=== PATIENT | male | born 1930 | race Caucasian/White ===

== ENCOUNTER 2016-04-16 04:19 | Emergency (ER) | payer OTHER, MEDICARE ==
[2016-04-16 04:47] VITALS: TEMP 98.2; BMI 26.5
--- NOTE | 2016-04-16 05:57 | PDOC ---
History of Present Illness - History of Present Illness Initial Comments: 04/16/16 06:31 The patient is an 86 year old male with a PMHx of [place], CHF, HTN, HLD, bladder CA , on dialysis, kidney stones, presents to the ED with hematuria. He woke up in the middle of the night to use the bathroom and noticed blood in his urine. He reports dysuria. He denies flank pain, abdominal pain. He denies fever, chills, nausea, vomiting, diarrhea, constipation. PCP: Dr. Anil Frazier Urologist: Dr. Yared Allen <Aileen Calles - Last Filed: 04/16/16 06:31> <Linda Duvall - Last Filed: 04/16/16 07:13> <Hyacinth Osei - Last Filed: 04/16/16 12:56> - General Chief Complaint: Hematuria Stated Complaint: BLOOD IN URINE Time Seen by Provider: 04/16/16 05:57 Past History <Aileen Calles - Last Filed: 04/16/16 06:31> - Past Medical History Anemia: No Asthma: No Cancer: Yes (BLADDER, SKIN ON TOP OF HEAD) Cardiac Disorders: Yes ([place], BYPASS SX, x1 Stent) CVA: No COPD: No CHF: Yes Dementia: No Diabetes: No GI Disorders: No Disorders: Yes (BLADDER CA, L-ARM FISTULA/Dialysis, kidney stones) HTN: Yes Hypercholesterolemia: Yes Liver Disease: No Seizures: No Thyroid Disease: No - Surgical History Abdominal Surgery: No Appendectomy: No Cardiac Surgery: Yes (BYPASS) Cholecystectomy: Yes Lung Surgery: No Neurologic Surgery: No Orthopedic Surgery: No - Immunization History Immunization Up to Date: Yes - Psycho/Social/Smoking Cessation Hx Anxiety: No Suicidal Ideation: No Smoking History: Never smoked Have you smoked in the past 12 months: No If you are a former smoker, when did you quit?: 2001 Information on smoking cessation initiated: No Hx Alcohol Use: No Drug/Substance Use Hx: No Substance Use Type: None Hx Substance Use Treatment: No <Linda Duvall - Last Filed: 04/16/16 07:13> <Hyacinth Osei - Last Filed: 04/16/16 12:56> - Past Medical History Allergies/Adverse Reactions: Allergies Allergy/AdvReac Type Severity Reaction Status Date / Time Penicillins Allergy Rash Verified 04/16/16 04:46 shellfish derived Allergy Rash Verified 04/16/16 04:46 Sulfa (Sulfonamide Allergy Difficulty Verified 04/16/16 04:46 Antibiotics) Breathing Home Medications: Ambulatory Orders Atorvastatin Ca [Lipitor] 20 mg PO HS 07/10/13 Furosemide [Lasix -] 40 mg PO DAILY 07/10/13 Carvedilol [Coreg -] 12.5 mg PO BID tablet 08/01/15 Pantoprazole Sodium [Protonix] 40 mg PO DAILY #30 tablet. 08/01/15 Allopurinol [Zyloprim -] 100 mg PO DAILY 08/17/15 Aspirin [ASA -] 81 mg PO DAILY 04/16/16 Bisacodyl [Dulcolax] 1 tablet PO DAILY 04/16/16 Ciprofloxacin HCl [Cipro] 500 mg PO BID #6 tablet 04/16/16 Clopidogrel Bisulfate [Plavix -] 75 mg PO DAILY 04/16/16 Multivit-Min/FA/Lycopen/Lutein [Centrum Silver Tablet] 1 each PO DAILY 04/16/16 Review of Systems - Review of Systems Comments:: 04/16/16 06:31 GENERAL/CONSTITUTIONAL: No fever or chills. No weakness. HEAD, EYES, EARS, NOSE AND THROAT: No change in vision. No ear pain or discharge. No sore throat. CARDIOVASCULAR: No chest pain or shortness of breath. RESPIRATORY: No cough, wheezing, or hemoptysis. GASTROINTESTINAL: No nausea, vomiting, diarrhea or constipation. GENITOURINARY: + hematuria, dysuria. MUSCULOSKELETAL: No joint or muscle swelling or pain. No neck or back pain. SKIN: No rash NEUROLOGIC: No headache, vertigo, loss of consciousness, or change in strength/ sensation. ENDOCRINE: No increased thirst. No abnormal weight change. HEMATOLOGIC/LYMPHATIC: No anemia, easy bleeding, or history of blood clots. ALLERGIC/IMMUNOLOGIC: No hives or skin allergy. <Aileen Calles - Last Filed: 04/16/16 06:31> *Physical Exam - Vital Signs Last Vital Signs Temp Pulse Resp BP Pulse Ox 98.2 F 64 18 149/65 95 04/16/16 04:46 04/16/16 04:46 04/16/16 04:46 04/16/16 04:46 04/16/16 04:46 - Physical Exam Comments: 04/16/16 06:31 GENERAL: Awake, alert, and fully oriented, in no acute distress HEAD: No signs of trauma EYES: PERRLA, EOMI, sclera anicteric, conjunctiva clear ENT: Auricles normal inspection, hearing grossly normal, nares patent, oropharynx clear without exudates. Moist mucosa NECK: Normal ROM, supple, no lymphadenopathy, JVD, or masses LUNGS: Breath sounds equal, clear to auscultation bilaterally. No wheezes, and no crackles HEART: Regular rate and rhythm, normal S1 and S2, no murmurs, rubs or gallops ABDOMEN: No flank tenderness. Soft, nontender, normoactive bowel sounds. No guarding, no rebound. No masses EXTREMITIES: Normal range of motion, no edema. No clubbing or cyanosis. No cords, erythema, or tenderness NEUROLOGICAL: Cranial nerves II through XII grossly intact. Normal speech, normal gait SKIN: Warm, Dry, normal turgor, no rashes or lesions noted. <Aileen Calles - Last Filed: 04/16/16 06:31> - Vital Signs Last Vital Signs Temp Pulse Resp BP Pulse Ox 98.2 F 64 18 149/65 95 04/16/16 04:46 04/16/16 04:46 04/16/16 04:46 04/16/16 04:46 04/16/16 04:46 <Linda Duvall - Last Filed: 04/16/16 07:13> - Vital Signs Last Vital Signs Temp Pulse Resp BP Pulse Ox 98.2 F 64 18 149/65 95 04/16/16 04:46 04/16/16 04:46 04/16/16 04:46 04/16/16 04:46 04/16/16 04:46 <Hyacinth Osei - Last Filed: 04/16/16 12:56> ED Treatment Course - ADDITIONAL ORDERS Additional order review: Laboratory Results 04/16/16 06:40 Urine Color Red Urine Appearance Bloody Urine pH 6.5 D Ur Specific [place] 1.015 Urine Protein 3+ H Urine Glucose (UA) Trace H Urine Ketones 1+ H Urine Blood 3+ H Urine Nitrite Positive Urine Bilirubin 2+ H Urine Urobilinogen >=8.0 e.u./dl Ur Leukocyte Esterase 2+ H Urine RBC 3787 Urine WBC None <Hyacinth Osei - Last Filed: 04/16/16 12:56> Medical Decision Making - Medical Decision Making 04/16/16 07:13 Pt comes with hematuria. Spiral CT pending. Bladder sonogram pending. UA pending. Pt's PMD Karin is in the ER and he stopped patient's plavix and aspirin. Dr. Frazier and Dr. Sánchez () will follow patient on an outpatient basis. Pt will be signed out to the day ER doc who will follow CT and SONO and UA. <Linda Duvall - Last Filed: 04/16/16 07:13> - Medical Decision Making 04/16/16 12:50 Received sign out from Dr Duvall to f/u ua, catscan, and bladder scan. Pt ua Positive for nitrate and has jorge alberto and pt c/o some dysuria. Will dc home with cipro 500mg po bid x 3 days for uti. Catscan showed 24 cm cystic structure with in the rt lateral aspect of the abdomen,possible exophytic renal cortical cyst. Dr Moreno is aware of the above findings. Pt to f/u with urology in next 48 hrs, pt agrees with this dc plan Pt to retun to ed for fever, abdominal pain or as needed. Pt agrees with this dc plan <Hyacinth Osei - Last Filed: 04/16/16 12:56> *DC/Admit/Observation/Transfer - Attestations Scribe Attestion: 04/16/16 06:32 Documentation prepared by Aileen Calles, acting as medical technologist microbiology for Linda Duvall MD. <Aileen Calles - Last Filed: 04/16/16 06:31> <Linda Duvall - Last Filed: 04/16/16 07:13> - Discharge Dispostion Admit: No <Hyacinth Osei - Last Filed: 04/16/16 12:56> Diagnosis at time of Disposition: ESRD (end stage renal disease), UTI symptoms - Discharge Dispostion Disposition: HOME Condition at time of disposition: Stable - Prescriptions Prescriptions: Ciprofloxacin HCl [Cipro] 500 mg PO BID #6 tablet - Referrals Referrals: Anil Frazier MD [Primary Care Provider] - - Patient Instructions Additional Instructions: return to ed for fever, abdominal pain or as needed. Pt to f/u with urolohy in next 48-72 hrs
[2016-04-16 07:00] LABS: PH,URINE 6.5 (5.0-8.0); URINE BILIRUBIN 2+ (NEGATIVE); URINE GLUCOSE (UA) TRACE (NEGATIVE); URINE KETONE 1+ (NEGATIVE); URINE UROBILINOGEN >=8.0 E.U./dl E.U./dl (0.2-1.0)
[2016-04-16 07:15] LABS: URINE BLOOD 3+ (NEGATIVE); URINE LEUK ESTERASE 2+ (NEGATIVE); URINE NITRITE POSITIVE (NEGATIVE); URINE PROTEIN 3+ (NEGATIVE)
[2016-04-16 07:16] LABS: URINE APPEARANCE BLOODY; URINE COLOR RED
[2016-04-16 07:21] LABS: URINE RBC 3787 /hpf (0-3)
--- NOTE | 2016-04-16 07:24 | PN ---
Progress Note (short form) - Note Progress Note: Pt was seen in the ER, waiting forCT in radiology. 86 y.o M presented to ER because of hematuria last night. His PMH -previous CO, CABG, PCI/stent last August 2015-Dr. Danielle. He is taking Plavix and ASA and being followed by Dr Root. No CHF symptoms , no angina recently Bladder cancer treated by Dr Gant. HTN. HLD. ESRD on HD TIW. Today Vital Signs Period Temp Pulse Resp BP Sys/[place] Pulse Ox Last 24 Hr 98.2 F 64 18 149/65 95 Awake, alert in W/C. in attendance. Lunds clear Heart S1S2 regular EXT-no CCE Fistula-good thrill Imp Hematuria while on ASA/Plavix. Bladder CA. R/O UTI. ASHD, S/p CO, s/p PCI. HTN ESRD on HD Plan Case discussed with ER MD Advised to Pt temorarily D/C ASA/Plavix and to follow up with as otpt. Will follow as outpt and pt also will follow with his cardiology. Laboratory Results - last 24 hr 04/16/16 06:40 Urine Color Red Urine Appearance Bloody Urine pH 6.5 D Ur Specific [place] 1.015 Urine Protein 3+ H Urine Glucose (UA) Trace H Urine Ketones 1+ H Urine Blood 3+ H Urine Nitrite Positive Urine Bilirubin 2+ H Urine Urobilinogen >=8.0 e.u./dl Ur Leukocyte Esterase 2+ H
[2016-04-16 10:18] VITALS: BP 136/70; PULSE 80
== END 2016-04-16 10:20 | disposition home or self-care (01) ==
LOC: JER 04:19
DX: N39.0 Urinary tract infection, site not specified (principal); I13.11 Hypertensive heart and chronic kidney disease without heart failure, with stage 5 chronic kidney disease, or end stage renal disease; N18.6 End stage renal disease; N17.8 Other acute kidney failure; Z99.2 Dependence on renal dialysis; I25.2 Old myocardial infarction; Z87.891 Personal history of nicotine dependence; E78.00 Pure hypercholesterolemia, unspecified; Z85.51 Personal history of malignant neoplasm of bladder; Z95.1 Presence of aortocoronary bypass graft; Z95.5 Presence of coronary angioplasty implant and graft; Z79.01 Long term (current) use of anticoagulants
CPT/HCPCS: 74176; 76856-TC; 81003; 81015; 87086; 99283-25

== ENCOUNTER 2016-05-05 05:05 | Day surgery (SDC) | payer OTHER, MEDICARE ==
[2016-05-04 09:51] VITALS: BMI 28.3
[2016-05-05 06:56] LABS: INR 1.39 (0.82-1.09); PROTHROMBIN TIME (PATIENT) 15.4 SEC (9.98-11.88)
[2016-05-05 06:58] LABS: ACTIVATED PTT 36.9 SECONDS (26.9-34.4)
[2016-05-05] MEDS ORDERED: PROPOFOL 20 ML ONE (09:13)
[2016-05-05] MEDS ORDERED: VANCOMYCIN 1,000 MG VIAL (RESTRICTED TO ID ONLY) ONE (09:15)
[2016-05-05] MEDS ORDERED: VANCOMYCIN 500 MG VIAL (RESTRICTED TO ID ONLY) IVPB ONE (09:30)
[2016-05-05] MEDS ORDERED: GLYCOPYRROLATE 0.2 MG/1 ML VIAL ONE ×2 (09:48→09:59)
[2016-05-05] MEDS ORDERED: DEXAMETHASONE SOD PHOSPHATE 4 MG/1 ML VIAL ONE (09:53)
[2016-05-05] MEDS ORDERED: ePHEDrine SULFATE 50 MG/1 ML AMPULE ONE (09:55)
--- NOTE | 2016-05-05 10:21 | OP ---
Operative Note - Note: Operative Date: 05/05/16 Pre-Operative Diagnosis: gross hematuria/poss bladder tumor Operation: cysto/bilateral retrograde pyelogram, left ureteroscopy/stent placement Findings: no bladder tumor Post-Operative Diagnosis: Other (gross heme) Surgeon: Yared Allen Anesthesia: General Specimens Removed: clot Estimated Blood Loss (mls): 5 Drains & Tubes with Location: 7fr, 24cm stent Operative Report Dictated: Yes
[2016-05-05] MEDS ORDERED: oxyCODONE HCL 5 MG TABLET PO PRN (10:22)
[2016-05-05] MEDS ORDERED: ONDANSETRON 4 MG/2 ML VIAL IVPUSH PRN (10:34)
--- NOTE | 2016-05-05 11:46 | OP ---
DATE OF OPERATION: 05/05/2016 PREOPERATIVE DIAGNOSIS: Gross hematuria and possible bladder tumor. POSTOPERATIVE DIAGNOSIS: Gross hematuria. PROCEDURE: Cystoscopy, bilateral retrograde pyelogram, left ureteroscopy, and stent placement. SURGEON: Damian Hutchinosn MD INDICATIONS: Patient is an 86-year-old male with end-stage renal disease on hemodialysis with recent gross hematuria. He has had a history of TCC of the bladder, and when he had a cystoscopy in the office, there appeared to be, could not tell if it was blood clot or tumor right at the left ureteral orifice. So, he was taken to the OR for cystoscopy, evaluation of the left collecting system, and possible TURBT. DESCRIPTION OF PROCEDURE: The patient in the OR was placed supine on the OR table. With cardiac monitoring administered and general anesthesia established, he was prepped and draped in dorsal lithotomy position. The rigid cystoscope was introduced into the urethra without difficulty. Anterior urethra was normal. Prostatic urethra was 4 cm and visually occlusive. Bladder was visualized. There were multiple small clots in the bladder that were evacuated and sent to Pathology for analysis. These appeared to be organized clot that looked cystoscopically like they were stones, but once I drained them out, they just crumbled between my fingers, indicating likely clot. So, I sent that specimen for analysis at the lab. The clot or tumor that was seen at the left ureteral orifice in the office was no longer there indicating that this was probably clot that had passed. Since clot was coming from the ureteral orifice, I performed a retrograde pyelogram and ureteroscopy to make sure there was no tumor in the upper collecting system. Retrograde pyelogram was performed with the ureteral catheter inserted into the left distal ureter. There was no evidence of any filling defect. The guidewire was advanced into the left renal pelvis, and then a dual lumen catheter was advanced, and a 2nd guidewire was advanced. Flexible ureteroscope was advanced into the kidney. Entire kidney was inspected, upper, middle, and lower poles. There was evidence again of small organized clot, but no tumor. All were inspected. The entire uterus inspected, and no tumors were noted. Ureteroscope was then removed, and a 7-Afghan 24-cm double pigtail stent was then advanced in a monorail fashion. Fluoroscopy confirmed this stent to be in good position. At this point, attention was turned to the patients right side, and the right ureter was intubated with ureteral catheter, and contrast was injected for retrograde pyelogram. The right ureter deviated almost all the way to the left side and then back to the right side, where at to the kidney, and this was due to an existing, very large abdominal retroperitoneal cyst that was noted on CT scan, but there were no filling defects noted. Because the right collecting system did not show any evidence of clot or filling defect, a ureteroscopy was not performed. Again, bladder was re-inspected and no tumors were noted. Cystoscope was then removed. Patient was awoken from anesthesia and transferred to recovery room in stable condition. There were no complications. ESTIMATED BLOOD LOSS: Minimal. DAMIAN HUTCHINSON M.D. [id number]
--- NOTE | 2016-05-05 15:04 | CON.CARD ---
Cardiology Consult (text) - Consultation Consultation Note: CC: chf 86 yo with pmhx of CAD (inferior [place]) s/p 4 vessel CABG at [facility] (anatomy unknown ) and most recently NSTEMI 08/2015 s/p TRISHA to [place] RPL1 (grafts patent), ischemic MR, dCHF with pHTN, AR, HTN, HL, venous insufficiency/LE edema, hx of GIB (egd showed gastric ulcer), esrd on HD, diverticulosis, colon polyps, BPH, kidney stones, anxiety, gout, psoriasis who was admitted s/p cystoscopy. Recent recurrent mild anginal sx's in setting of decreased HD sessions --> resolved after increasing time of HD sessions back to previous. Recent cough after stopping lasix. Resumed 40 mg daily, and then one week ago increased to 40 mg bid with slow improvement in cough over the course of the week. (still mild residual cough) - mild increase in baseline minimal uop on bid lasix. - no change in exercise capacity during this time. Denies orthopnea, pnd, le edema, sob, recurrence of angina. + hematuria. Recently stopped ASA, plavix. s/p cystoscopy today for further evaluation --> ureteral stent placement (no tumor visualized) . - GA anesthesia, good O2 sats throughout procedure, 300 cc of IVF adminsistered Currently complaining of thirst, and sore throat. Has not made urine since procedure. Denies palps, dizziness, f/c/s, n/v/d, headache, visual disturbances, rashes, nasal congestion or transient neurologic symptoms. Cards: Dr. Root PMx. per hpi Past Surgical History: Yes: AV Fistula/Graft, CABG, Cataract Removal (left eye) , Cholecystectomy (open) Social Hx: former smoker, no etoh, or illicits Fam hx: Non-contributory Ros: per hpi Ambulatory Orders Atorvastatin Ca [Lipitor] 20 mg PO HS 07/10/13 Furosemide [Lasix -] 40 mg PO BID 07/10/13 Carvedilol [Coreg -] 12.5 mg PO BID tablet 08/01/15 Pantoprazole Sodium [Protonix] 40 mg PO DAILY #30 tablet. 08/01/15 Allopurinol [Zyloprim -] 100 mg PO DAILY 08/17/15 Bisacodyl [Dulcolax] 1 tablet PO PRN PRN 04/16/16 Multivit-Min/FA/Lycopen/Lutein [Centrum Silver Tablet] 1 each PO DAILY 04/16/16 Current Medications Fentanyl (Sublimaze Injection -) 25 mcg IVPUSH [id number] PRN PRN Reason: PAIN Stop: 05/08/16 10:35 Ondansetron HCl (Zofran Injection) 4 mg IVPUSH Q6H PRN PRN Reason: NAUSEA AND/OR VOMITING Stop: 05/05/16 16:35 Oxycodone HCl (Roxicodone -) 5 mg PO Q4H PRN PRN Reason: PAIN Vital Signs - 24 hr 05/05/16 05/05/16 05/05/16 07:23 07:25 10:16 Temperature 97.6 F 97.3 F L Pulse Rate 52 L 70 Respiratory 18 15 Rate Blood Pressure 144/50 156/47 O2 Sat by Pulse 98 96 Oximetry (%) 05/05/16 05/05/16 05/05/16 10:30 10:45 11:00 Temperature Pulse Rate 65 61 59 L Respiratory 16 15 13 Rate Blood Pressure 161/52 153/59 130/41 O2 Sat by Pulse 99 100 100 Oximetry (%) 05/05/16 05/05/16 05/05/16 11:15 11:30 11:45 Temperature 97.5 F L Pulse Rate 58 L 56 L 55 L Respiratory 15 17 15 Rate Blood Pressure 147/42 127/38 142/44 O2 Sat by Pulse 100 97 97 Oximetry (%) 05/05/16 05/05/16 12:05 13:51 Temperature 97.1 F L Pulse Rate 54 L 55 L Respiratory 18 18 Rate Blood Pressure 114/53 140/57 O2 Sat by Pulse 92 L Oximetry (%) Intake & Output 05/03/16 05/04/16 05/05/16 05/06/16 07:59 07:59 07:59 07:59 Intake Total 300 Output Total 0 Balance 300 Weight 160 lb NAD, calm JVD elevated, neck supple RRR nl s1, s2 2/6 murmur at LSB and apex bibasilar crackles and exp wheezes, nl effort + bs soft nt nd ext without e/c/c + dp/pt no jaundice, diaphoresis aaox3 CBC, BMP 05/05/16 06:29 echo 12/2015: mild lvh. nl size/fn EF 55-60%. Mild HK of inferolateral wall and basal inferoseptum, mod HK of inferior wall. Pseudonormalization. mild RV dilation, nl fn. mod lae. 1+ ar, mod MR (central), mild-mod tr, mod phtn. RVSP 51 (presuming RAP of 3) [facility] 08/23/2015: severe [place] 3vD; patent grafts x 4: RAI to LAD; radial artery Y -graft from RAI to D1 and OM1; radial artery to RCA; 70-80% RPL1--XIENCE; EDP 25, down to 20 with NTG; nl EF, no RWMA Stress Echo 03/07--dobutamine: possibly ischemic STs; +mid-septal akinesis and infero-apical HK c/w ischemia 86 yo with pmhx of CAD (inferior NM) s/p 4 vessel CABG at [facility] (anatomy unknown) and most recently NSTEMI 08/2015 s/p TRISHA to [place] RPL1 (grafts patent) , ischemic MR, dCHF with pHTN, AR, HTN, HL, venous insufficiency/LE edema, hx of GIB (egd showed gastric ulcer), esrd on HD, diverticulosis, colon polyps, BPH, kidney stones, anxiety, gout, psoriasis who was admitted s/p cystoscopy. Diastolic HF with mod phtn - appears volume up on exam. - Discussed with renal, will diurese via HD. Arrangements being made for HD tomorrow am. - close monitoring of O2 sat to prevent hypoxia from worsening pHTN. CAD (inferior NM) s/p 4 vessel CABG at [facility] (anatomy unknown) - Most recently NSTEMI 08/2015 s/p TRISHA to [place] R[place]1 (grafts patent). - s/p DAPT x 7 mo --> held 3 weeks ago for hematuria. - resume DAPT or at least ASA when safe per urology - atorvastatin, bb Mod ischemic MR. - no signs of valvular decompensation - diuresis as above. - management of bp HTN - reasonable bp control for age. Resume coreg 12.5 mg bid once HR > 60. (Has underlying conduction abnormalities/AV delay and LBBB) s/p cystoscopy under GA - edwardo-operative monitoring as mentioned above. - managment per urology.
--- NOTE | 2016-05-05 17:36 | CON.NEP ---
Consult Consult Specialty:: Nephrology Referred by:: Dr Mae Reason for Consultation:: ESRD - History of Present Illness Chief Complaint: Admitted post op History of Present Illness: 86 yo with CAD (inferior [place]) s/p 4 vessel CABG, and most recently NSTEMI 08/2015 [place]grafts patent), HFpEF with pHTN, AR, HTN, HLD, ESRD on HD on MWF, diverticulosis, colon polyps, BPH, kidney stones, anxiety, gout, psoriasis who was admitted s/p cystoscopy. Pt has been off the ASA and Plavix since he had gross hematuria several weeks ago so cystoscopy was done and negative for tumor was negative. Pt due to void now. Asked to see pt regarding his dialysis which would next be due tomorrow Pt is very comfortable and denies any c/o dyspnea, CP, N/V or palpitations He has been able to ambulate in his room without difficulty - History Source History Provided By: Patient - Past Medical History Cardio/Vascular: Yes: Aortic Insufficiency, CHF, HTN, [place], Mitral Insufficiency, Murmur, Pulmonary Hypertension Pulmonary: Yes: Other (Pulm HTN) Gastrointestinal: Yes: Diverticulosis, GI Bleed, Peptic Ulcer Disease, Other ( colon polyps) Renal/: Yes: Renal Failure, BPH, Cancer (Bladder), Renal Calculi (uric acid stones) Psych: Yes: Anxiety Rheumatology: Yes: Gout Dermatology: Yes: Psoriasis - Past Surgical History Past Surgical History: Yes: AV Fistula/Graft, CABG, Cataract Removal (left eye) , Cholecystectomy (open) - Alcohol/Substance Use Hx Alcohol Use: No - Smoking History Smoking history: Never smoked Have you smoked in the past 12 months: No If you are a former smoker, when did you quit?: 2001 - Social History Usual Living Arrangement: With Spouse History of Recent Travel: No Home Medications - Allergies Allergies/Adverse Reactions: Allergies Allergy/AdvReac Type Severity Reaction Status Date / Time Penicillins Allergy Rash Verified 05/05/16 07:12 shellfish derived Allergy Rash Verified 05/05/16 07:12 Sulfa (Sulfonamide Allergy Difficulty Verified 05/05/16 07:12 Antibiotics) Breathing - Home Medications Home Medications: Ambulatory Orders Atorvastatin Ca [Lipitor] 20 mg PO HS 07/10/13 Furosemide [Lasix -] 40 mg PO BID 07/10/13 Carvedilol [Coreg -] 12.5 mg PO BID tablet 08/01/15 Pantoprazole Sodium [Protonix] 40 mg PO DAILY #30 tablet. 08/01/15 Allopurinol [Zyloprim -] 100 mg PO DAILY 08/17/15 Aspirin [ASA -] 81 mg PO DAILY 04/16/16 Bisacodyl [Dulcolax] 1 tablet PO PRN PRN 04/16/16 Clopidogrel Bisulfate [Plavix -] 75 mg PO DAILY 04/16/16 Multivit-Min/FA/Lycopen/Lutein [Centrum Silver Tablet] 1 each PO DAILY 04/16/16 Family Disease History - Family Disease History Family Disease History: CA: Brother (lung), Other: Father (cva), Mother ( natural causes), Sister (parkinson's) Nephrology Consult - Height Height: 5 ft 3 in - Weight Weight: 160 lb - BMI Body Mass Index (BMI): 28.3 - Lab Results CBC,BMP: CBC, BMP 05/05/16 06:29 04/20/16-Hgb 10.5 Plt 120 WBC 5.5 Glucose 125 Na 139, Cr 2.9 K 3.3 - Imaging Chest X-ray: Other (04/20/16- Cardiomegaly) EKG: Other (04/20/16- NSR with first degree block LBBB) - Physical Examination Vital Signs: Vital Signs Temperature 97.1 F L 05/05/16 13:51 Pulse Rate 55 L 05/05/16 13:51 Respiratory Rate 18 05/05/16 13:51 Blood Pressure 140/57 05/05/16 13:51 O2 Sat by Pulse Oximetry (%) 92 L 05/05/16 12:30 Constitutional: Yes: No Distress, Calm Cardiovascular: Yes: JVD, Murmur, S1, S2 Respiratory: Yes: Rales, Other (Few crackles at the left posterior base) Gastrointestinal: Yes: Soft, Distention, Other (RUQ scar). No: Tenderness, Rebound Extremities: Yes: Other (LUE AVF with thrill) Edema: LLE: Trace, RLE: Trace Neurological: Yes: Alert, Oriented Assessment/Plan Impression S/P Cystoscopy for gross Hematuria in pt with h/o BPH ESRD HTN CABG with stent HFpEF Valvular heart disease Anemia Plan Renal diet with salt and fluid restriction No BP or IV in the LUE Will arrange for HD to be done in am since pt is clinically stable and not in decompensated CHF at this time. Pt also prefers to wait for his usual day Restart the ASA and Plavix when OK with Urology Monitor for urinary retention post operatively Discussed with Urology and Cardiology Thank You Will Follow Dr Webb
[2016-05-05] MEDS: CARVEDILOL 12.5 MG TABLET (FP) PO SCH (21:36)
[2016-05-05] MEDS ORDERED: ATORVASTATIN CA 20 MG TABLET (FP) PO SCH (22:00)
[2016-05-06 07:33] LABS: CALCIUM 7.9 mg/dL (8.5-10.1); CREATININE 5.7 mg/dL (0.7-1.3)
[2016-05-06 07:34] LABS: BASOPHIL 0.4 % (0-2.0); EOSINOPHIL 0.3 % (0-4.5); MCHC 33.4 g/dl (32.0-35.9); MEAN CELL VOLUME 101.9 fl (80-96); MEAN PLT VOLUME 9.4 fl (7.5-11.1); NEUTROPHILS 81.4 % (42.8-82.8); PLATELET COUNT 111 K/MM3 (134-434); RDW 17.5 % (11.9-15.9); WHITE BLOOD COUNT 6.4 K/mm3 (4.0-10.0)
--- NOTE | 2016-05-06 10:14 | PN ---
Progress Note, Physician History of Present Illness: Pt now on HD without any complaints Pre K 3.8 so Ca 2.5 K3 bath being used for the last 1/2 hour Pre wt 0.1 Kgs above EDW Aiming to remove 1 kgs Pt had some urinary retention so was catheterized X2 overnight - 400 cc then 150 cc drained out - Current Medication List Current Medications: Active Medications Atorvastatin Calcium (Lipitor -) 20 mg PO HS [facility] Last Admin: 05/05/16 21:36 Dose: 20 mg Carvedilol (Coreg -) 12.5 mg PO BID [facility] Last Admin: 05/05/16 21:36 Dose: 12.5 mg Fentanyl (Sublimaze Injection -) 25 mcg IVPUSH [id number] PRN PRN Reason: PAIN Stop: 05/08/16 10:35 Oxycodone HCl (Roxicodone -) 5 mg PO Q4H PRN PRN Reason: PAIN - Objective Vital Signs: Vital Signs Temperature 98.2 F 05/06/16 06:51 Pulse Rate 49 L 05/06/16 09:00 Respiratory Rate 16 05/06/16 09:00 Blood Pressure 127/50 05/06/16 09:00 O2 Sat by Pulse Oximetry (%) 94 L 05/06/16 00:38 Constitutional: Yes: No Distress Cardiovascular: Yes: Murmur, S1, S2 Respiratory: Yes: CTA Bilaterally, Other (Clear towards the end of HD) Gastrointestinal: Yes: Soft, Distention. No: Tenderness, Rebound Edema: LLE: Trace, RLE: Trace Labs: CBC, BMP 05/06/16 05:35 05/06/16 05:35 INR, PTT INR 1.39 (0.82-1.09) H 05/05/16 06:29 Assessment/Plan Impression S/P Cystoscopy for gross Hematuria in pt with h/o BPH and post op retention ESRD HTN CABG with stent HFpEF Valvular heart disease Anemia Plan Restart the ASA and Plavix when OK with Urology Continue to monitor for urinary retention post operatively New EDW to be determined Dr Webb
[2016-05-06] MEDS: CARVEDILOL 12.5 MG TABLET (FP) PO SCH (10:27)
--- NOTE | 2016-05-06 11:20 | PATH ---
Surgical Pathology Report Patient Name: REJI MARMOLEJO [facility]. Rec. #: [id number] /Age/Gender: 1930 (Age: 86) / M Account: [id number] Location: [address] [place] [address]/[facility] Taken: 05/05/2016 Received: 05/05/2016 Reported: 05/06/2016 Physicians: Yared Allen M.D. Specimen(s) Received FOREIGN BODY IN BLADDER, STONE VS BLOOD CLOTS Clinical History Hematuria Final Diagnosis BLOOD CLOT, BLADDER, EVACUATION: CLOTTED BLOOD. Electronically Signed Stanley Hardy M.D. Gross Description Received in formalin labelled "foreign body in bladder, stone versus blood clot" is approximately 0.5 cm greatest dimension aggregate of small fragments of clotted blood. No definite calculi are identified. Totally submitted in one cassette. [facility]/05/05/2016 [facility]/05/05/2016
--- NOTE | 2016-05-06 11:54 | PN ---
Progress Note (short form) - Note Progress Note: POD #1 - s/p cystoscopy/stent placement under general anesthesia. Pt. doing well , sitting up comfortably at side of bed. Pt. c/o some sore throat, taking lozenges. Discussed with pt. that sore throat my be related to the laryngeal mask airway used during the procedure. Reassured pt. that sore throat should resolve over the next few days. Advised to follow up with PMD if needed. Continue current care.
[2016-05-06 13:45] VITALS: BP 115/70; PULSE 57; TEMP 99.3
--- NOTE | 2016-05-06 16:00 | PN ---
Progress Note, Physician Chief Complaint: 86 y.o patient well known from the office. Underwent cystoscopy, stent placement 05/05/16 under [place]. Today scheduled HD done at [facility] for ESRD. Patient is comfortable in the room , present. Pt is asking about discharge. History of Present Illness: IWMI. CABG x4 at [facility]. Last NSTEMI 08/2015 with TRISHA placement. CHFpEF. HTN. pulm HTN. ischemic AR, AR, HLD, Gout. LE venous insufficiency. LE edema. PUD, gastric ulcer. Bladder cancer. Kidney lesion, kidney stones. BPH. Diverticulosis., colon polyps. Psoriasis. - Current Medication List Current Medications: Active Medications Atorvastatin Calcium (Lipitor -) 20 mg PO HS [facility] Last Admin: 05/05/16 21:36 Dose: 20 mg Carvedilol (Coreg -) 12.5 mg PO BID [facility] Last Admin: 05/06/16 10:27 Dose: 12.5 mg Fentanyl (Sublimaze Injection -) 25 mcg IVPUSH [id number] PRN PRN Reason: PAIN Stop: 05/08/16 10:35 Oxycodone HCl (Roxicodone -) 5 mg PO Q4H PRN PRN Reason: PAIN - Objective Vital Signs: Vital Signs Temperature 99.3 F 05/06/16 13:43 Pulse Rate 57 L 05/06/16 13:43 Respiratory Rate 18 05/06/16 13:43 Blood Pressure 115/70 05/06/16 13:43 O2 Sat by Pulse Oximetry (%) 93 L 05/06/16 12:00 Constitutional: Yes: No Distress, Anxious. No: Cachectic, Obese Eyes: Yes: Conjunctiva Clear, EOM Intact HENT: Yes: Atraumatic, Normocephalic. No: Drooling, Epistaxis, Hoarseness, Nasal Congestion Neck: Yes: Supple, Trachea Midline. No: Decreased ROM, Lymphadenopathy, Rigid, Tenderness, Thyromegaly Cardiovascular: Yes: Regular Rate and Rhythm, Murmur, S1, S2. No: Bradycardia, Tachycardia, JVD, Rub Respiratory: Yes: Regular, Rales (Few B/B rales). No: On Nasal O2 Gastrointestinal: Yes: Normal Bowel Sounds, Soft, Abdomen, Obese. No: Palpable Mass, Tenderness ...Rectal Exam: Yes: Deferred Genitourinary: No: Anuria, Bladder Distention, CVA Tenderness - Left, CVA Tenderness - Right, [place] Present Musculoskeletal: Yes: WNL Extremities: Yes: Other (left UE scar post radial artery harvesting for CABG). No: Amputation, Calf Tenderness, Cold, Cyanosis, Erythema Edema: No Peripheral Pulses WNL: No Integumentary: Yes: WNL Neurological: Yes: WNL ...Motor Strength: WNL Psychiatric: Yes: WNL, Alert, Oriented. No: Agitated, Suicidal Ideation Labs: CBC, BMP 05/06/16 05:35 05/06/16 05:35 INR, PTT INR 1.39 (0.82-1.09) H 05/05/16 06:29 Laboratory Results - last 24 hr 05/06/16 05/06/16 05:35 05:35 WBC 6.4 RBC 3.16 L Hgb 10.8 L Hct 32.2 L MCV 101.9 H MCHC 33.4 RDW 17.5 H Plt Count 111 L MPV 9.4 Neutrophils % 81.4 Lymphocytes % 9.6 Monocytes % 8.3 Eosinophils % 0.3 D Basophils % 0.4 Sodium 136 Potassium 3.8 Chloride 99 Carbon Dioxide 23 D Anion Gap 14 BUN 54 H D Creatinine 5.7 H D Random Glucose 127 H Calcium 7.9 L - ....Imaging Chest X-ray: Report Reviewed EKG: Report Reviewed, Image Reviewed (LBBB, SR) Problem List - Problems (1) CAD (coronary artery disease) Assessment/Plan: Patient can restart ASA tomorrow as discussed with .. Further recommendations after office f/u Continue meds and re-start Lasix . Follow up re urinary retention. Code(s): I25.10 - ATHSCL HEART DISEASE OF [place] CORONARY ARTERY W/O ANG PCTRS Qualifiers: Coronary Disease-Associated Artery/Lesion type: bypass graft Associated angina: with unstable angina (2) ESRD (end stage renal disease) Assessment/Plan: HD done today. Continue HD TIW. Code(s): N18.6 - END STAGE RENAL DISEASE (3) UTI symptoms Assessment/Plan: Spoke to Dr Jason today. Pt can be D/C home F/u with for stent removal. Code(s): R39.9 - UNSP SYMPTOMS AND SIGNS INVOLVING THE GENITOURINARY SYSTEM (4) Diastolic CHF Assessment/Plan: Re-start meds as pre-op Carvedilol, Furosemide. Would not replete K now-expected to go up with ESRD over the weekend cardiology and PMD F/u. Code(s): I50.30 - UNSPECIFIED DIASTOLIC (CONGESTIVE) HEART FAILURE Qualifiers : Congestive heart failure chronicity: chronic Qualified Code(s): I50.32 - Chronic diastolic (congestive) heart failure
--- NOTE | 2016-05-06 16:11 | PN ---
Progress Note (short form) - Note Progress Note: S/P ureteral stent. voiding this afternoon, still bloody
== END 2016-05-06 16:46 | disposition home or self-care (01) ==
LOC: JASUSAT 05:05 → JASU-SURG 05:05 → J5S 12:24 → JASUSAT 05-06 16:46
PROVIDERS: ATTEND Urology
PROC: 0WHR8YZ Insertion of Other Device into Genitourinary Tract, Via Natural or Artificial Opening Endoscopic (ICD-10-PCS; 2016-05-05)
PROC: 0T7D8DZ Dilation of Urethra with Intraluminal Device, Via Natural or Artificial Opening Endoscopic (ICD-10-PCS; principal; 2016-05-05 08:30)
PROC: BT14YZZ Fluoroscopy of Kidneys, Ureters and Bladder using Other Contrast (ICD-10-PCS; 2016-05-05 08:30)
DX: E31.0 Autoimmune polyglandular failure (principal); C67.8 Malignant neoplasm of overlapping sites of bladder; I25.10 Atherosclerotic heart disease of native coronary artery without angina pectoris; I25.2 Old myocardial infarction; I50.9 Heart failure, unspecified; Z95.1 Presence of aortocoronary bypass graft; Z79.01 Long term (current) use of anticoagulants; E78.5 Hyperlipidemia, unspecified; M19.90 Unspecified osteoarthritis, unspecified site; M10.9 Gout, unspecified; I27.2 Other secondary pulmonary hypertension; N40.0 Benign prostatic hyperplasia without lower urinary tract symptoms; L40.9 Psoriasis, unspecified; Z86.010 Personal history of colon polyps; Z87.442 Personal history of urinary calculi; I12.0 Hypertensive chronic kidney disease with stage 5 chronic kidney disease or end stage renal disease; N18.6 End stage renal disease; Z99.2 Dependence on renal dialysis
CPT/HCPCS: 36415; 71010-TC; 76000-TC; 80048; 84132; 85025; 85610; 85730; 87340; 88304-TC; 94760

== ENCOUNTER 2016-09-07 18:45 | Inpatient (IN) | payer OTHER, MEDICARE ==
--- NOTE | 2016-09-07 19:04 | PDOC ---
History of Present Illness <Andrade Alvarez - Last Filed: 09/07/16 21:11> - History of Present Illness Initial Comments: 09/07/16 19:42 Patient is an 86 year old male with significant medical hx of [place], CHF, pulmonary HTN, HLD, renal failure, bladder CA, renal failure on dialysis, kidney stones, psoriasis, who is presenting to the ED with four days of fever and two weeks of non-productive cough. Patient reports fever as high as 102 four days ago; he took it again today which measured 101.3. The patient also complains of associated fatigue. Denies any chest pain, shortness of breath, headache, nausea, vomiting, or diarrhea. Surgical Hx: AV Fistula/Graft, CABG, Cataract Removal (left eye), Cholecystectomy Allergies: penicillins, shellfish, sulfa PCP: Anil aPtel MD Urologist: Yared Pereyra MD Asbestos Abatement Technician: Jalen Root MD <Sury Diaz - Last Filed: 09/07/16 21:21> - General Chief Complaint: SIRS, Suspected/Possible Stated Complaint: SENT BY PCP Time Seen by Provider: 09/07/16 19:01 Past History - Past Medical History Anemia: No Asthma: No Cancer: Yes (BLADDER, SKIN ON TOP OF HEAD) Cardiac Disorders: Yes ([place], BYPASS SX, x1 Stent) CVA: No COPD: No CHF: Yes Dementia: No Diabetes: No Dialysis: Yes (M-W-F) GI Disorders: No Disorders: Yes (BLADDER CA, L-ARM FISTULA/Dialysis, kidney stones) HTN: Yes Hypercholesterolemia: Yes Liver Disease: No Seizures: No Thyroid Disease: No - Surgical History Abdominal Surgery: No Appendectomy: No Cardiac Surgery: Yes (BYPASS) Cholecystectomy: Yes Lung Surgery: No Neurologic Surgery: No Orthopedic Surgery: No - Immunization History Immunization Up to Date: Yes - Psycho/Social/Smoking Cessation Hx Anxiety: No Suicidal Ideation: No Smoking History: Never smoked Have you smoked in the past 12 months: No If you are a former smoker, when did you quit?: 2001 Hx Alcohol Use: No Drug/Substance Use Hx: No Substance Use Type: None Hx Substance Use Treatment: No <Andrade Alvarez - Last Filed: 09/07/16 21:11> <Sury Diaz - Last Filed: 09/07/16 21:21> - Past Medical History Allergies/Adverse Reactions: Allergies Allergy/AdvReac Type Severity Reaction Status Date / Time Penicillins Allergy Rash Verified 09/07/16 18:51 shellfish derived Allergy Rash Verified 09/07/16 18:51 Sulfa (Sulfonamide Allergy Difficulty Verified 09/07/16 18:51 Antibiotics) Breathing Home Medications: Ambulatory Orders Atorvastatin Ca [Lipitor] 20 mg PO HS 07/10/13 Furosemide [Lasix -] 40 mg PO BID 07/10/13 Carvedilol [Coreg -] 12.5 mg PO BID tablet 08/01/15 Pantoprazole Sodium [Protonix] 40 mg PO DAILY #30 tablet. 08/01/15 Allopurinol [Zyloprim -] 100 mg PO DAILY 08/17/15 Aspirin [ASA -] 81 mg PO DAILY 04/16/16 Bisacodyl [Dulcolax] 1 tablet PO PRN PRN 04/16/16 Clopidogrel Bisulfate [Plavix -] 75 mg PO DAILY 04/16/16 Multivit-Min/FA/Lycopen/Lutein [Centrum Silver Tablet] 1 each PO DAILY 04/16/16 Review of Systems - Review of Systems Comments:: 09/07/16 19:43 CONSTITUTIONAL: Fever, fatigue. No chills EYES: No visual changes ENT: No ear pain, no sore throat CARDIOVASCULAR: No chest pain, no palpitations RESPIRATORY: Cough. No SOB GI: No abdominal pain, no nausea, no vomiting, no constipation, no diarrhea GENITOURINARY: No dysuria, no frequency, no hematuria MUSKULOSKELETAL: No backpain, no joint pain, no myalgias SKIN: No rash NEURO: No headache <Sury Diaz - Last Filed: 09/07/16 21:21> *Physical Exam - Vital Signs Last Vital Signs Temp Pulse Resp BP Pulse Ox 98.0 F 63 20 104/32 94 L 09/07/16 18:48 09/07/16 18:48 09/07/16 18:48 09/07/16 18:48 09/07/16 18:48 <Andrade Alvarez - Last Filed: 09/07/16 21:11> - Vital Signs Last Vital Signs Temp Pulse Resp BP Pulse Ox 98.0 F 63 20 104/32 94 L 09/07/16 18:48 09/07/16 18:48 09/07/16 18:48 09/07/16 18:48 09/07/16 18:48 - Physical Exam Comments: 09/07/16 19:45 CONSTITUTIONAL: Alert, awake; in no apparent distress HEAD: Normocephalic; atraumatic EYES: PERRL; EOM intact ENMT: External appears normal; normal oropharynx NECK: Supple; non-tender; no cervical lymphadenopathy; no JVD CARD: Irregular; Normal S1, S2; 2/6 systolic murmur; No rubs, or gallops RESP: Normal chest excursion with respiration; breath sounds clear and equal bilaterally; no wheezes, rhonchi, or rales ABD: Soft, distended; non-tender; no palpable organomegaly, no palpable hernias EXT: +1 Pitting edema lower extremities bilaterally; AV fistula left upper extremity with palpable thrill; normal ROM in all four extremities; non-tender to palpation; distal pulses intact SKIN: Warm, dry, no rash, well healed midline sternotomy scar NEURO: No focal neurological deficiencies. <Sury Diaz - Last Filed: 09/07/16 21:21> Heart Score/ECG Review #1 09/07/16 21:21 Sinus bradycardia at 57 bpm with 1st degree AV block with occasional premature ventricular complexes Left axis deviation Left bundle branch block Abnormal ECG <Sury Diaz - Last Filed: 09/07/16 21:21> ED Treatment Course - LABORATORY CBC & Chemistry Diagram: 09/07/16 19:00 09/07/16 19:00 <Andrade Alvarez - Last Filed: 09/07/16 21:11> - LABORATORY CBC & Chemistry Diagram: 09/07/16 19:00 09/07/16 19:00 <Sury Diaz - Last Filed: 09/07/16 21:21> Medical Decision Making - Medical Decision Making 09/07/16 21:12 Patient is well-appearing 86-year-old male with multiple morbidities, with end- stage renal disease on hemodialysis (Monday, Monday, Monday), presents to the ER with recurrent intermittent fevers (MAXIMUM TEMPERATURE 102), for the past 3-4 days. Patient also complaining of persistent, nonproductive cough. In the ER, patient is awake and alert, afebrile, nontoxic appearing. Lung evaluation reveals coarse rhonchi at the bases bilaterally likely chronic in nature; abdominal exam reveals no focal tenderness, although it is mildly distended and tympanitic; lower extremity evaluation reveals a small plaque- like lesion above the left knee and +1 pitting edema bilaterally but no evidence of soft tissue infection. Chest x-ray reveals cardiomegaly, sternotomy wires and thickening of fissure on the right but no evidence of infiltrate. CBC reveals no evidence of leukocytosis. CMP reveals no significant electrolyte abnormalities. I suspect bacteremia. We'll administer vancomycin at 15 mg/kg. We 'll also administer 100 mg of gentamicin. Will admit. We'll consult renal. <Andrade Alvarez - Last Filed: 09/07/16 21:11> *DC/Admit/Observation/Transfer - Discharge Dispostion Admit: Yes - Attestations Physician Attestion: 09/07/16 21:12 The documentation was prepared by the scribe under my direct supervision. I have reviewed the documentation which correctly represents the findings, medical decision-making and critical action taken by me. <Andrade Alvarez - Last Filed: 09/07/16 21:11> - Attestations Scribe Attestion: 09/07/16 19:46 Documentation prepared by Sury Diaz, acting as medical assistant internal medicine for Andrade Alvarez MD. <Sury Diaz - Last Filed: 09/07/16 21:21> Diagnosis at time of Disposition: Bacteremia - Referrals Referrals: Anil Frazier MD [Primary Care Provider] -
[2016-09-07] MEDS ORDERED: VANCOMYCIN 1,250 MG in DEXTROSE 5%-WATER - 250 ML IVPB ONE (19:42)
[2016-09-07 20:03] LABS: VENOUS PH 7.29 (7.32-7.42)
[2016-09-07 20:21] LABS: MCH 32.8 pg (25.7-33.7); MCHC 32.7 g/dl (32.0-35.9); MEAN CELL VOLUME 100.5 fl (80-96); RDW 18.1 % (11.9-15.9); WHITE BLOOD COUNT 4.1 K/mm3 (4.0-10.0)
[2016-09-07 20:32] LABS: INR 1.66 (0.82-1.09); PROTHROMBIN TIME (PATIENT) 18.4 SEC (9.98-11.88)
[2016-09-07] MEDS: SODIUM CHLORIDE 250 ML IV STA ×2 (20:33→21:25)
[2016-09-07 20:35] LABS: ACTIVATED PTT 41.1 SECONDS (26.9-34.4)
[2016-09-07 20:44] LABS: ALBUMIN 2.3 g/dl (3.4-5.0); ANION GAP 11 (8-16); BILIRUBIN,TOTAL 0.6 mg/dL (0.2-1.0); CALCIUM 7.6 mg/dL (8.5-10.1); CO2 24 mmol/L (21-32); CREATININE 6.1 mg/dL (0.7-1.3); GLUCOSE,RANDOM 130 mg/dL (74-106); SGOT/AST 20 U/L (15-37); SGPT/ALT 15 U/L (12-78); TOT PROT 6.6 g/dl (6.4-8.2)
[2016-09-07] MEDS ORDERED: GENTAMICIN INJECTION 100 MG in DEXTROSE 5%-WATER - 250 ML IVPB ONE (20:44)
[2016-09-07 20:46] LABS: ALK PHOS 105 U/L (45-117); TROPONIN I 0.12 ng/ml (0.00-0.05)
[2016-09-07 21:13] LABS: MEAN PLT VOLUME 11.3 fl (7.5-11.1); PLATELET COMMENT2 NO CLUMPING NOTED; PLATELET COUNT 60 K/MM3 (134-434); PLATELET ESTIMATE MOD DECREASED (NORMAL)
[2016-09-07 21:14] LABS: PLATELET COMMENT3 FEW LARGE PLTS
[2016-09-07] MEDS ORDERED: BISACODYL 5 MG TABLET.DR (FP) PO PRN (21:14)
[2016-09-07] MEDS ORDERED: ACETAMINOPHEN 325 MG TABLET (FP) PO PRN (21:18)
[2016-09-07] MEDS: CARVEDILOL 12.5 MG TABLET (FP) PO SCH (23:42)
[2016-09-07] MEDS: ATORVASTATIN CA 20 MG TABLET (FP) PO SCH (23:42)
[2016-09-07] MEDS: GENTAMICIN INJECTION 100 MG in DEXTROSE 5%-WATER - 250 ML IVPB SCH (23:43)
[2016-09-08 01:38] VITALS: BMI 28.8
[2016-09-08] MEDS: FUROSEMIDE 40 MG TABLET (FP) PO SCH ×2 (06:20→14:07)
--- NOTE | 2016-09-08 08:14 | HP ---
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 Presented to ER and was admitted for further management. History of Present Illness: History of PUD and GI bleed, 2016 hospitalized.. ESRD with AVF left arm M-W-F Gout. ASHD. CABG. s/p [place]. Stable Angina. CHF-diastolic. Elevated PAP. Psoriasis. HTN. History Source: Patient, Medical Record - Past Medical History Cardiovascular: Yes: Aortic Insufficiency, CHF, HTN, [place], Mitral Insufficiency, Murmur, Pulmonary Hypertension Pulmonary: Yes: Other (Pulm HTN) Gastrointestinal: Yes: Diverticulosis, GI Bleed, Peptic Ulcer Disease, Other ( colon polyps) Renal/: Yes: Renal Failure, BPH, Cancer (Bladder), Renal Calculi (uric acid stones) Heme/Onc: Yes: Anemia Psych: Yes: Anxiety Rheumatology: Yes: Gout Dermatology: Yes: Psoriasis - Past Surgical History Past Surgical History: Yes: AV Fistula/Graft, CABG, Cataract Removal (left eye) , Cholecystectomy (open) - Smoking History Smoking history: Never smoked Have you smoked in the past 12 months: No If you are a former smoker, when did you quit?: 2001 - Alcohol/Substance Use Hx Alcohol Use: No - Social History History of Recent Travel: No Home Medications - Allergies Allergies/Adverse Reactions: Allergies Allergy/AdvReac Type Severity Reaction Status Date / Time Penicillins Allergy Rash Verified 09/07/16 18:51 shellfish derived Allergy Rash Verified 09/07/16 18:51 Sulfa (Sulfonamide Allergy Difficulty Verified 09/07/16 18:51 Antibiotics) Breathing - Home Medications Home Medications: Ambulatory Orders Atorvastatin Ca [Lipitor] 20 mg PO HS 07/10/13 Furosemide [Lasix -] 40 mg PO BID 07/10/13 Carvedilol [Coreg -] 12.5 mg PO BID tablet 08/01/15 Pantoprazole Sodium [Protonix] 40 mg PO DAILY #30 tablet. 08/01/15 Allopurinol [Zyloprim -] 100 mg PO DAILY 08/17/15 Aspirin [ASA -] 81 mg PO DAILY 04/16/16 Bisacodyl [Dulcolax] 1 tablet PO PRN PRN 04/16/16 Multivit-Min/FA/Lycopen/Lutein [Centrum Silver Tablet] 1 each PO DAILY 04/16/16 Family Disease History - Family Disease History Family Disease History: [place]: Brother (lung), Other: Father (cva), Mother ( natural causes), Sister (parkinson's) Review of Systems - Review of Systems Constitutional: reports: Diaphoresis, Loss of Appetite, Malaise, Weakness Eyes: denies: Blurred Vision, Double Vision, Eye Pain, Photophobia, Recent Change in Vision HENT: denies: Difficult Swallowing, Throat Pain Neck: denies: Decreased ROM, Lumps, Pain on Movement Cardiovascular: denies: Chest Pain, Edema, Palpitations, Shortness of Breath Respiratory: reports: Cough. denies: Hemoptysis, PND, Wheezing Gastrointestinal: reports: Constipation. denies: Abdominal Pain, Bloating, Diarrhea, Rectal Bleeding, Vomiting, Vomiting Blood Genitourinary: denies: Burning, Discharge Breasts: reports: No Symptoms Reported Musculoskeletal: denies: Decreased ROM, Joint Pain, Muscle Pain Integumentary: reports: Pruritis Neurological: denies: Change in LOC, Change in Speech, Confusion, Incoordination , Pre-Existing Deficit, Seizure Endocrine: denies: Increased Hunger, Intolerance to Cold, Intolerance to Heat, Unexplained Weight Loss Hematology/Lymphatic: denies: Easily Bruised, Excessive Bleeding Psychiatric: denies: Hallucinations, Paranoia, Suicidal Physical Examination Vital Signs: Vital Signs Temperature 98.9 F 09/08/16 06:00 Pulse Rate 58 L 09/08/16 06:00 Respiratory Rate 20 09/08/16 06:00 Blood Pressure 94/33 09/08/16 06:00 O2 Sat by Pulse Oximetry (%) 98 09/08/16 01:15 Constitutional: Yes: No Distress, Calm. No: Cachectic, Diaphoresis Eyes: Yes: Conjunctiva Clear, EOM Intact. No: Diplopia HENT: Yes: Atraumatic, Normocephalic. No: Drooling Neck: Yes: Supple, Trachea Midline. No: Decreased ROM, Lymphadenopathy, Tenderness, Thyromegaly Cardiovascular: Yes: Pulse Irregular (VPC) Respiratory: Yes: Rales (B/B). No: CTA Bilaterally Gastrointestinal: Yes: Soft, Abdomen, Obese. No: Pulsatile Mass, Rectal Bleeding, Tenderness, Tenderness, Rebound, Vomiting ...Rectal Exam: No: Deferred Renal/: No: Anuria, Bladder Distention, CVA Tenderness - Left, CVA Tenderness - Right Breast(s): Yes: WNL Musculoskeletal: Yes: Back Pain Extremities: No: Calf Tenderness, Cold, Cyanosis Edema: Yes Edema: LLE: Trace, RLE: Trace Integumentary: Yes: Rash Neurological: Yes: Alert, Oriented, Other ([place]). No: Confusion, Facial Droop, Lethargy, Tremors, Unresponsive ...Motor Strength: WNL Psychiatric: Yes: Alert, Oriented. No: Agitated, Suicidal Ideation Labs: Laboratory Results - last 24 hr 09/07/16 09/07/16 09/07/16 19:00 19:00 19:00 WBC 4.1 D RBC 3.27 L Hgb 10.8 L Hct 32.9 L MCV 100.5 H MCH 32.8 MCHC 32.7 RDW 18.1 H Plt Count 60 L D MPV 11.3 H D Neutrophils % 56.0 D Lymphocytes % 13.0 D Monocytes % 25.0 H D Eosinophils % 1.0 D Band Neutrophils 2.0 Differential Comment Manual diff done Reactive Lymphocytes 3 Platelet Estimate Decreased Platelet Comment No clumping noted Macrocytosis 1+ Morphology Comment Slide scanned ESR INR 1.66 H PTT (Actin FS) 41.1 H VBG pH POC VBG pCO2 POC VBG pO2 Mixed VBG HCO3 Sodium 137 Potassium 3.9 Chloride 102 Carbon Dioxide 24 Anion Gap 11 BUN 57 H Creatinine 6.1 H Creat Clearance w eGFR 8.83 Random Glucose 130 H Lactic Acid Calcium 7.6 L Total Bilirubin 0.6 AST 20 ALT 15 Alkaline Phosphatase 105 Creatine Kinase 11 L Troponin I 0.12 H D Total Protein 6.6 Albumin 2.3 L D Blood Type Antibody Screen 09/07/16 09/07/16 09/07/16 19:00 19:00 19:20 WBC RBC Hgb Hct MCV MCH MCHC RDW Plt Count MPV Neutrophils % Lymphocytes % Monocytes % Eosinophils % Band Neutrophils Differential Comment Reactive Lymphocytes Platelet Estimate Platelet Comment Macrocytosis Morphology Comment ESR 70 H INR PTT (Actin FS) VBG pH POC VBG pCO2 POC VBG pO2 Mixed VBG HCO3 Sodium Potassium Chloride Carbon Dioxide Anion Gap BUN Creatinine Creat Clearance w eGFR Random Glucose Lactic Acid 1.0 Calcium Total Bilirubin AST ALT Alkaline Phosphatase Creatine Kinase Troponin I Total Protein Albumin Blood Type A POSITIVE Antibody Screen Negative 09/07/16 19:50 WBC RBC Hgb Hct MCV MCH MCHC RDW Plt Count MPV Neutrophils % Lymphocytes % Monocytes % Eosinophils % Band Neutrophils Differential Comment Reactive Lymphocytes Platelet Estimate Platelet Comment Macrocytosis Morphology Comment ESR INR PTT (Actin FS) VBG pH 7.29 L POC VBG pCO2 43.0 POC VBG pO2 66.3 H Mixed VBG HCO3 20.0 Sodium Potassium Chloride Carbon Dioxide Anion Gap BUN Creatinine Creat Clearance w eGFR Random Glucose Lactic Acid Calcium Total Bilirubin AST ALT Alkaline Phosphatase Creatine Kinase Troponin I Total Protein Albumin Blood Type Antibody Screen Imaging - Results Chest X-ray: Report Reviewed EKG: Image Reviewed Problem List - Problems (1) CAD (coronary artery disease) Assessment/Plan: Elevated Troponin I -ESRD on HD, Cardiology f/u. Code(s): I25.10 - ATHSCL HEART DISEASE OF [place] CORONARY ARTERY W/O ANG PCTRS Qualifiers: Coronary Disease-Associated Artery/Lesion type: bypass graft Associated angina: with unstable angina (2) Diastolic CHF Assessment/Plan: Continue HD and fluid ballance Chronic cough, and lung changes. Code(s): I50.30 - UNSPECIFIED DIASTOLIC (CONGESTIVE) HEART FAILURE Qualifiers : Congestive heart failure chronicity: chronic Qualified Code(s): I50.32 - Chronic diastolic (congestive) heart failure (3) ESRD (end stage renal disease) Assessment/Plan: Discussed with Dr. colin-HD tomorrow. Code(s): N18.6 - END STAGE RENAL DISEASE (4) Fever Assessment/Plan: R/o bacteremia-P Bld cx Follow T Was Given Vanco/ Genta. Code(s): R50.9 - FEVER, UNSPECIFIED Qualifiers: Fever type: unspecified Qualified Code(s): R50.9 - Fever, unspecified
--- NOTE | 2016-09-08 08:33 | CON.NEP ---
Consult Consult Specialty:: nephrology Reason for Consultation:: esrd - History of Present Illness Chief Complaint: fever History of Present Illness: This is an 86 year old man with a history of CAD, HTN, gout, aortic insufficency and ESRD who presented with a fever of 102.2 associated with a cough. No chest pain, no rigors (though he cant remember for sure). Apparently , has had intermittent fevers for 2 to 3 weeks usually on the day of dialysis . Upon arrival to ED his temp was normal, but he had taken tylenol already. He feels better today but is eager to know whats happening. - History Source History Provided By: Patient, Medical Record - Past Medical History Cardio/Vascular: Yes: Aortic Insufficiency, CHF, HTN, OH, Mitral Insufficiency, Murmur, Pulmonary Hypertension Pulmonary: Yes: Other (Pulm HTN) Gastrointestinal: Yes: Diverticulosis, GI Bleed, Peptic Ulcer Disease, Other ( colon polyps) Renal/: Yes: Renal Failure, BPH, Cancer (Bladder), Renal Calculi (uric acid stones) Psych: Yes: Anxiety Rheumatology: Yes: Gout Dermatology: Yes: Psoriasis - Past Surgical History Past Surgical History: Yes: AV Fistula/Graft, CABG, Cataract Removal (left eye) , Cholecystectomy (open) - Alcohol/Substance Use Hx Alcohol Use: No - Smoking History Smoking history: Never smoked Have you smoked in the past 12 months: No If you are a former smoker, when did you quit?: 2001 - Social History Usual Living Arrangement: With Spouse History of Recent Travel: No Home Medications - Allergies Allergies/Adverse Reactions: Allergies Allergy/AdvReac Type Severity Reaction Status Date / Time Penicillins Allergy Rash Verified 09/07/16 18:51 shellfish derived Allergy Rash Verified 09/07/16 18:51 Sulfa (Sulfonamide Allergy Difficulty Verified 09/07/16 18:51 Antibiotics) Breathing - Home Medications Home Medications: Ambulatory Orders Atorvastatin Ca [Lipitor] 20 mg PO HS 07/10/13 Furosemide [Lasix -] 40 mg PO BID 07/10/13 Carvedilol [Coreg -] 12.5 mg PO BID tablet 08/01/15 Pantoprazole Sodium [Protonix] 40 mg PO DAILY #30 tablet. 08/01/15 Allopurinol [Zyloprim -] 100 mg PO DAILY 08/17/15 Aspirin [ASA -] 81 mg PO DAILY 04/16/16 Bisacodyl [Dulcolax] 1 tablet PO PRN PRN 04/16/16 Multivit-Min/FA/Lycopen/Lutein [Centrum Silver Tablet] 1 each PO DAILY 04/16/16 Family Disease History - Family Disease History Family Disease History: CA: Brother (lung), Other: Father (cva), Mother ( natural causes), Sister (parkinson's) Review of Systems - Review of Systems Constitutional: reports: Fever, Night Sweats Eyes: reports: No Symptoms HENT: reports: No Symptoms Neck: reports: No Symptoms Cardiovascular: reports: No Symptoms Respiratory: reports: Cough, SOB Gastrointestinal: reports: No Symptoms Genitourinary: reports: No Symptoms Breasts: reports: No Symptoms Reported Musculoskeletal: reports: No Symptoms Integumentary: reports: No Symptoms Neurological: reports: No Symptoms Endocrine: reports: No Symptoms Hematology/Lymphatic: reports: No Symptoms Psychiatric: reports: No Symptoms Nephrology Consult - Height Height: 5 ft 3 in - Weight Weight: 163 lb 0.636 oz - BMI Body Mass Index (BMI): 28.8 - Lab Results CBC,BMP: Laboratory Last Values WBC 4.1 K/mm3 (4.0-10.0) D 09/07/16 19:00 RBC 3.27 M/mm3 (4.00-5.60) L 09/07/16 19:00 Hgb 10.8 GM/dL (11.7-16.9) L 09/07/16 19:00 Hct 32.9 % (35.4-49) L 09/07/16 19:00 MCV 100.5 fl (80-96) H 09/07/16 19:00 MCH 32.8 pg (25.7-33.7) 09/07/16 19:00 MCHC 32.7 g/dl (32.0-35.9) 09/07/16 19:00 RDW 18.1 % (11.9-15.9) H 09/07/16 19:00 Plt Count 60 K/MM3 (134-434) L D 09/07/16 19:00 MPV 11.3 fl (7.5-11.1) H D 09/07/16 19:00 Neutrophils % 56.0 % (42.8-82.8) D 09/07/16 19:00 Lymphocytes % 13.0 % (8-40) D 09/07/16 19:00 Monocytes % 25.0 % (3.8-10.2) H D 09/07/16 19:00 Eosinophils % 1.0 % (0-4.5) D 09/07/16 19:00 Band Neutrophils 2.0 % (0-10) 09/07/16 19:00 Differential Comment Manual diff done 09/07/16 19:00 Reactive Lymphocytes 3 % (0-80) 09/07/16 19:00 Platelet Estimate Decreased 09/07/16 19:00 Platelet Comment No clotting detected 09/07/16 19:00 Platelet Comment No clumping noted 09/07/16 19:00 Macrocytosis 1+ 09/07/16 19:00 Morphology Comment Slide scanned 09/07/16 19:00 ESR 70 mm/hr (0-20) H 09/07/16 19:20 INR 1.66 (0.82-1.09) H 09/07/16 19:00 PTT (Actin FS) 41.1 SECONDS (26.9-34.4) H 09/07/16 19:00 VBG pH 7.29 (7.32-7.42) L 09/07/16 19:50 POC VBG pCO2 43.0 mmHg (38-52) 09/07/16 19:50 POC VBG pO2 66.3 mmHg (28-48) H 09/07/16 19:50 Mixed VBG HCO3 20.0 meq/L (19-25) 09/07/16 19:50 Sodium 137 mmol/L (136-145) 09/07/16 19:00 Potassium 3.9 mmol/L (3.5-5.1) 09/07/16 19:00 Chloride 102 mmol/L (98-107) 09/07/16 19:00 Carbon Dioxide 24 mmol/L (21-32) 09/07/16 19:00 Anion Gap 11 (8-16) 09/07/16 19:00 BUN 57 mg/dL (7-18) H 09/07/16 19:00 Creatinine 6.1 mg/dL (0.7-1.3) H 09/07/16 19:00 Creat Clearance w eGFR 8.83 (>60) 09/07/16 19:00 Random Glucose 130 mg/dL (74-106) H 09/07/16 19:00 Lactic Acid 1.0 mmol/L (0.4-2.0) 09/07/16 19:00 Calcium 7.6 mg/dL (8.5-10.1) L 09/07/16 19:00 Total Bilirubin 0.6 mg/dL (0.2-1.0) 09/07/16 19:00 AST 20 U/L (15-37) 09/07/16 19:00 ALT 15 U/L (12-78) 09/07/16 19:00 Alkaline Phosphatase 105 U/L (45-117) 09/07/16 19:00 Creatine Kinase 11 IU/L (39-308) L 09/07/16 19:00 Troponin I 0.12 ng/ml (0.00-0.05) H D 09/07/16 19:00 Total Protein 6.6 g/dl (6.4-8.2) 09/07/16 19:00 Albumin 2.3 g/dl (3.4-5.0) L D 09/07/16 19:00 Blood Type A POSITIVE 09/07/16 19:00 Antibody Screen Negative 09/07/16 19:00 Anion Gap: Anion Gap Anion Gap 11 (8-16) 09/07/16 19:00 - Imaging Chest X-ray: Report Reviewed (no pneumonia) - Physical Examination Vital Signs: Vital Signs Temperature 98.9 F 09/08/16 06:00 Pulse Rate 58 L 09/08/16 06:00 Respiratory Rate 20 09/08/16 06:00 Blood Pressure 94/33 09/08/16 06:00 O2 Sat by Pulse Oximetry (%) 98 09/08/16 01:15 Constitutional: Yes: Well Nourished, No Distress, Calm Eyes: Yes: Conjunctiva Clear HENT: Yes: Atraumatic, Normocephalic Neck: Yes: Supple, Trachea Midline Cardiovascular: Yes: Regular Rate and Rhythm Respiratory: Yes: Rales (left greater than right) Gastrointestinal: Yes: Normal Bowel Sounds Renal/: Yes: WNL Access for Hemodialysis: AV Fistula Musculoskeletal: Yes: WNL Extremities: Yes: WNL Edema: No Peripheral Pulses WNL: Yes Wound/Incision: Yes: Clean/Dry Neurological: Yes: Alert, Oriented Psychiatric: Yes: Alert, Oriented Assessment/Plan IMPRESSION Intermittent fevers in a hemodialysis patient who is dialyzed via a fistula. Unusual for fistula to be infected. He does have crackles at left base and cough. So perhaps has a pneumonia. He mentioned being out yesterday. So perhaps this has something to do with it since sometimes dialysis patients cant regulate temp easily. PLAN 1. will order CT scan of chest to better evaluate left base 2. will redose vanco with hemodialysis 3. will dialyze again tomorrow 4. will observe after dialysis to see if fever recurs 5. follow cultures 6. might need to do a gallium or an indium scan MV
[2016-09-08 09:10] LABS: C-REACTIVE PROTEIN 8.1 MG/DL (0.00-0.3)
[2016-09-08] MEDS: ASPIRIN 81 MG CHEWABLE TABLETS PO SCH (10:02)
[2016-09-08] MEDS: PANTOPRAZOLE 40 MG TABLET (FP) PO SCH (10:02)
[2016-09-08] MEDS: CLOPIDOGREL BISULFATE 75 MG TABLET (FP) PO SCH (10:02)
[2016-09-08] MEDS: MULTIVITAMINS THER W-MINERALS COMBO TABLET (FP) PO SCH (10:02)
[2016-09-08] MEDS: ALLOPURINOL 100 MG TABLET (FP) PO SCH (10:02)
[2016-09-08] MEDS: CARVEDILOL 12.5 MG TABLET (FP) PO SCH ×2 (10:03→21:27)
--- NOTE | 2016-09-08 10:19 | PN ---
Progress Note (short form) - Note Progress Note: ID Consult dictated Fever in this 86 year old male with ESRD, cough, thrombocytopenia. Works at [employer] but no known tick exposure Possible CAP RLL Possible transient bacteremia secondary to access ? Tick related illness Thrombocytopenia/ monocytosis ? viral illness Await c/s Stat Vanco/ genta given CT chest Tick serologies Empiric zithromax/ ceftriaxone
[2016-09-08] MEDS ORDERED: DEXTROSE 5%-WATER - 50 ML IVPB ONE (12:19)
[2016-09-08] MEDS ORDERED: cefTRIAXone SODIUM 1 GM VIAL ONE (12:19)
[2016-09-08] MEDS: CEFTRIAXONE 1 GM in DEXTROSE 5%-WATER - 50 ML IVPB SCH (12:31)
--- NOTE | 2016-09-08 12:42 | CON.CARD ---
Cardiology Consult (text) - Consultation Consultation Note: CC: fever, cough 86 yo with pmhx of CAD (inferior NC) s/p 4 vessel CABG at [facility] (anatomy unknown ) and most recently NSTEMI 08/2015 s/p [place]HA to [place] R[place] (grafts patent), ischemic MR, dCHF with pHTN, AR, HTN, HL, venous insufficiency/LE edema, hx of GIB (egd showed gastric ulcer), esrd on HD, diverticulosis, colon polyps, BPH, kidney stones, anxiety, gout, psoriasis here with fever and cough. Has been going on about a week. No sob, cp, palps, dizzy, loc, pnd, orthopnea, le edema. Infectious w/u in progress now, on empiric abx. Sees dr early for cardio. PMHx. per hpi Past Surgical History: Yes: AV Fistula/Graft, CABG, Cataract Removal (left eye) , Cholecystectomy (open) Social Hx: former smoker, no etoh, or illicits Fam hx: Non-contributory Ros: per hpi; no nvd, abd pain, gib, hematuria, dysuria, mendes, vision changes, wt loss Home Medications Medication Instructions Recorded Atorvastatin Ca [Lipitor] 20 mg PO HS 07/10/13 Furosemide [Lasix -] 40 mg PO BID 07/10/13 Carvedilol [Coreg -] 12.5 mg PO BID tablet 08/01/15 Pantoprazole Sodium [Protonix] 40 mg PO DAILY #30 tablet. 08/01/15 Allopurinol [Zyloprim -] 100 mg PO DAILY 08/17/15 Aspirin [ASA -] 81 mg PO DAILY 04/16/16 Bisacodyl [Dulcolax] 1 tablet PO PRN PRN 04/16/16 Multivit-Min/FA/Lycopen/Lutein 1 each PO DAILY 04/16/16 [Centrum Silver Tablet] Vital Signs Period Temp Pulse Resp BP Sys/Valdez Pulse Ox Last 24 Hr 98.0 F-98.9 F 56-63 18-20 84-104/32-40 94-100 nad no jvd RRR nl s1, s2 2/6 murmur at LSB and apex cta , nl effort + bs soft nt nd ext without e/c/c + dp/pt no jaundice, diaphoresis aaox3 Laboratory Last Values WBC 4.1 K/mm3 (4.0-10.0) D 09/07/16 19:00 RBC 3.27 M/mm3 (4.00-5.60) L 09/07/16 19:00 Hgb 10.8 GM/dL (11.7-16.9) L 09/07/16 19:00 Hct 32.9 % (35.4-49) L 09/07/16 19:00 MCV 100.5 fl (80-96) H 09/07/16 19:00 MCH 32.8 pg (25.7-33.7) 09/07/16 19:00 MCHC 32.7 g/dl (32.0-35.9) 09/07/16 19:00 RDW 18.1 % (11.9-15.9) H 09/07/16 19:00 Plt Count 60 K/MM3 (134-434) L D 09/07/16 19:00 MPV 11.3 fl (7.5-11.1) H D 09/07/16 19:00 Neutrophils % 56.0 % (42.8-82.8) D 09/07/16 19:00 Lymphocytes % 13.0 % (8-40) D 09/07/16 19:00 Monocytes % 25.0 % (3.8-10.2) H D 09/07/16 19:00 Eosinophils % 1.0 % (0-4.5) D 09/07/16 19:00 Band Neutrophils 2.0 % (0-10) 09/07/16 19:00 Differential Comment Manual diff done 09/07/16 19:00 Reactive Lymphocytes 3 % (0-80) 09/07/16 19:00 Platelet Estimate Decreased 09/07/16 19:00 Platelet Comment No clotting detected 09/07/16 19:00 Platelet Comment No clumping noted 09/07/16 19:00 Macrocytosis 1+ 09/07/16 19:00 Morphology Comment Slide scanned 09/07/16 19:00 ESR 70 mm/hr (0-20) H 09/07/16 19:20 INR 1.66 (0.82-1.09) H 09/07/16 19:00 PTT (Actin FS) 41.1 SECONDS (26.9-34.4) H 09/07/16 19:00 VBG pH 7.29 (7.32-7.42) L 09/07/16 19:50 POC VBG pCO2 43.0 mmHg (38-52) 09/07/16 19:50 POC VBG pO2 66.3 mmHg (28-48) H 09/07/16 19:50 Mixed VBG HCO3 20.0 meq/L (19-25) 09/07/16 19:50 Sodium 137 mmol/L (136-145) 09/07/16 19:00 Potassium 3.9 mmol/L (3.5-5.1) 09/07/16 19:00 Chloride 102 mmol/L (98-107) 09/07/16 19:00 Carbon Dioxide 24 mmol/L (21-32) 09/07/16 19:00 Anion Gap 11 (8-16) 09/07/16 19:00 BUN 57 mg/dL (7-18) H 09/07/16 19:00 Creatinine 6.1 mg/dL (0.7-1.3) H 09/07/16 19:00 Creat Clearance w eGFR 8.83 (>60) 09/07/16 19:00 Random Glucose 130 mg/dL (74-106) H 09/07/16 19:00 Lactic Acid 1.0 mmol/L (0.4-2.0) 09/07/16 19:00 Calcium 7.6 mg/dL (8.5-10.1) L 09/07/16 19:00 Total Bilirubin 0.6 mg/dL (0.2-1.0) 09/07/16 19:00 AST 20 U/L (15-37) 09/07/16 19:00 ALT 15 U/L (12-78) 09/07/16 19:00 Alkaline Phosphatase 105 U/L (45-117) 09/07/16 19:00 Creatine Kinase 11 IU/L (39-308) L 09/07/16 19:00 Troponin I 0.12 ng/ml (0.00-0.05) H D 09/07/16 19:00 C-Reactive Protein 8.1 MG/DL (0.00-0.3) H 09/07/16 19:00 Total Protein 6.6 g/dl (6.4-8.2) 09/07/16 19:00 Albumin 2.3 g/dl (3.4-5.0) L D 09/07/16 19:00 Blood Type A POSITIVE 09/07/16 19:00 Antibody Screen Negative 09/07/16 19:00 echo 12/2015: mild lvh. nl size/fn EF 55-60%. Mild HK of inferolateral wall and basal inferoseptum, mod HK of inferior wall. Pseudonormalization. mild RV dilation, nl fn. mod lae. 1+ ar, mod MR (central), mild-mod tr, mod phtn. RVSP 51 (presuming RAP of 3) [facility] 08/23/2015: severe [place] 3vD; patent grafts x 4: RAI to LAD; radial artery Y -graft from RAI to D1 and OM1; radial artery to RCA; 70-80% RPL1--XIENCE; EDP 25, down to 20 with NTG; nl EF, no RWMA Stress Echo 03/07--dobutamine: possibly ischemic STs; +mid-septal akinesis and infero-apical HK c/w ischemia ecg 09/07/16: sr, 1st avb, pvcs, lbbb, no sig change priors a/p: 86 yo with pmhx of CAD (inferior NC) s/p 4 vessel CABG at [facility] (anatomy unknown) and most recently NSTEMI 08/2015 s/p [place]HA to [place] (grafts patent) , ischemic MR, dCHF with pHTN, AR, HTN, HL, venous insufficiency/LE edema, hx of GIB (egd showed gastric ulcer), esrd on HD, diverticulosis, colon polyps, BPH, kidney stones, anxiety, gout, psoriasis here with fever and cough. chronic Diastolic HF with mod phtn - appears stable, wt near baseline - cont vol management with HD per renal fever: -infectious w/u in progress. abx per ID positive trops: -intermediate elevation with nl ck consistent with prior baseline levels, no suggestion of acs. trend for now. CAD (inferior NC) s/p 4 vessel CABG at [facility] (anatomy unknown) - Most recently NSTEMI 08/2015 s/p [place]HA to [place] (grafts patent). - remains on dapt. plts on low side here, possibly from infection/sepsis. if plts cont to drop can dc plavix as it has been 1 year since last pci. - cont atorvastatin, bb Mod ischemic MR. - no signs of valvular decompensation HTN - cont coreg
[2016-09-08] MEDS: AZITHROMYCIN IVPB 250 ML IVPB SCH (13:59)
--- NOTE | 2016-09-08 15:09 | CONS ---
DATE OF CONSULTATION: DATE OF DICTATION: 09/08/2016 The patient is an 86-year-old male, history of end-stage renal disease, on hemodialysis, evaluated for fever. The patient gives a 3 to 4-day history of high-grade fever. He reports that when he is placed on dialysis, he develops temperature elevation. He also complains of a dry cough. Cultures were obtained and he was empirically treated with vancomycin and gentamicin. He denies any rigors. No complaints of chest pain, shortness of breath, purulent sputum production, or hemoptysis. He does make a small amount of urine, does not experience dysuria or hematuria. The patient denies any ill contacts. 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 He did develop a rash on his right pretibial area, which was treated with treated topically. Past medical history positive for end-stage renal disease, on hemodialysis; coronary artery disease; myocardial infarction; congestive heart failure; pulmonary hypertension; history of peptic ulcer disease; GI bleed; gouty arthritis; bladder cancer; nephrolithiasis; psoriasis. Allergies to PENICILLIN and SULFA: reports rash. No history of anaphylaxis. MEDICATIONS: Tylenol, vancomycin, gentamicin, heparin, Zyloprim, Coreg, Dulcolax, Lipitor, Lasix, aspirin, Plavix, Protonix. SOCIAL HISTORY: He lives at home. Nonsmoker, nondrinker. SYSTEMS REVIEW: Neurologic: No loss of consciousness, seizure activity, or focal weakness. Cardiac: Negative chest pain or palpitations. Respiratory: As per HPI. Gastrointestinal: Negative vomiting or diarrhea. Genitourinary: As per HPI. LABORATORY DATA: White count 4.1, with 56 neutrophils, 13 lymphocytes, 25 monocytes, platelets 60, ESR 70. BUN 57, creatinine 6.1. Blood cultures are pending. Chest x-ray negative for acute infiltrate. PHYSICAL EXAMINATION: General: He is awake and alert. He is not acutely toxic appearing. Vital Signs: Temperature 98.9. Blood pressure 94/33. Pulse 58, regular. Respirations 21 per minute. ENT: Sclerae anicteric. Oropharynx negative. Neck: Supple. Heart Sounds: S1, S2. Lungs: Crepitations, right base. Abdomen: Soft. No tenderness elicited. No mass, rebound or rigidity. Extremities: Negative for edema. There is an AV fistula present in the left upper extremity. No evidence of infection. IMPRESSION: Fever, in this 86-year-old male with history of end-stage renal disease, cough, and thrombocytopenia, relative leukocytosis with monocytes. 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 1. Possible community-acquired versus atypical pneumonia, right lower lobe. 2. Possible transient bacteremia secondary to dialysis access. 3. Possible tick-related illness. 4. Possible viral syndrome. No clear source for infection. Agree with obtaining CAT scan of the chest to rule out right lower lobe infiltrate. Obtain tick serologies including Lyme antibody, anaplasma, Babesia PCR. Empiric antibiotic coverage for community-acquired versus atypical pneumonia with Zithromax and ceftriaxone. Presence of monocytosis and thrombocytopenia suggests possible viral etiology. Await sepsis workup. Will follow. Thank you for the kind referral. TREMAINE HERNANDEZ M.D. [id number]
--- NOTE | 2016-09-08 16:32 | EKG ---
Test Reason : Blood Pressure : / mmHG Vent. Rate : 057 BPM Atrial Rate : 057 BPM P-R Int : 238 ms QRS Dur : 136 ms QT Int : 456 ms P-R-T Axes : 004 -59 081 degrees QTc Int : 443 ms SINUS BRADYCARDIA WITH 1ST DEGREE A-V BLOCK WITH OCCASIONAL PREMATURE VENTRICULAR COMPLEXES LEFT AXIS DEVIATION LEFT BUNDLE BRANCH BLOCK ABNORMAL ECG WHEN COMPARED WITH ECG OF 20-APR-2016 11:05, PREMATURE VENTRICULAR COMPLEXES ARE NOW PRESENT Confirmed by HALEY DIANE MD ([id number]) on 09/08/2016 4:32:28 PM Referred By: Confirmed By:HALEY DIANE MD
[2016-09-08] MEDS: ATORVASTATIN CA 20 MG TABLET (FP) PO SCH (21:26)
[2016-09-09] MEDS: FUROSEMIDE 40 MG TABLET (FP) PO SCH (06:14)
[2016-09-09 06:46] VITALS: TEMP 98
[2016-09-09] MEDS: GENTAMICIN INJECTION 100 MG in DEXTROSE 5%-WATER - 250 ML IVPB SCH (07:56)
--- NOTE | 2016-09-09 07:58 | PN ---
Progress Note (short form) - Note Progress Note: Awake, alert NAD Tmax 99.3F CT scan noted-some worsening mediastinal lymphadenopathy, axillary lymphadenopathy. No PNA, small effusions.Enlarged spleen Vital Signs (72 hours) 09/07/16 09/07/16 09/07/16 18:48 19:25 22:31 Temperature 98.0 F 98.3 F Pulse Rate 63 Pulse Rate [ 56 L Right] Respiratory 20 20 Rate Blood Pressure 104/32 Blood Pressure 104/34 [Right Arm] O2 Sat by Pulse 94 L 96 100 Oximetry (%) 09/08/16 09/08/16 09/08/16 01:00 01:15 02:06 Temperature 98.5 F 98.8 F Pulse Rate 62 Pulse Rate [ Right] Respiratory 20 20 Rate Blood Pressure 102/40 Blood Pressure [Right Arm] O2 Sat by Pulse 98 98 Oximetry (%) 09/08/16 09/08/16 09/08/16 06:00 09:00 10:00 Temperature 98.9 F 98.4 F Pulse Rate 58 L 60 Pulse Rate [ Right] Respiratory 20 18 18 Rate Blood Pressure 94/33 84/39 Blood Pressure [Right Arm] O2 Sat by Pulse 98 Oximetry (%) 09/08/16 09/08/16 09/09/16 14:45 21:00 02:00 Temperature 98.0 F 99.3 F Pulse Rate 55 L 61 Pulse Rate [ Right] Respiratory 16 16 16 Rate Blood Pressure 82/37 110/52 Blood Pressure [Right Arm] O2 Sat by Pulse 98 Oximetry (%) 09/09/16 06:00 Temperature 98.0 F Pulse Rate 58 L Pulse Rate [ Right] Respiratory 16 Rate Blood Pressure 120/45 Blood Pressure [Right Arm] O2 Sat by Pulse Oximetry (%) Laboratory Results - last 24 hr 09/07/16 19:00 Sodium 137 Potassium 3.9 Chloride 102 Carbon Dioxide 24 Anion Gap 11 BUN 57 H Creatinine 6.1 H Creat Clearance w eGFR 8.83 Random Glucose 130 H Calcium 7.6 L Total Bilirubin 0.6 AST 20 ALT 15 Alkaline Phosphatase 105 Creatine Kinase 11 L Troponin I 0.12 H D C-Reactive Protein 8.1 H Total Protein 6.6 Albumin 2.3 L D Microbiology 09/07/16 19:00 Blood Culture - Preliminary Blood - Peripheral Venous NO GROWTH OBTAINED AFTER 24 HOURS, INCUBATION TO CONTINUE FOR 4 DAYS. 09/07/16 19:00 Blood Culture - Preliminary Blood - Peripheral Venous NO GROWTH OBTAINED AFTER 24 HOURS, INCUBATION TO CONTINUE FOR 4 DAYS. On PE neck-supple, non-tender, no JVD, no bruits. Lungs -b/b rales. Heart S1S2 regular. No RMG Abdomen soft, NT, obese- Ext-no CCE Imp Intermittent fevers-infectios vs non infectious. Thrombocytopenia, enlarged spleen-r/o hypersplenism. Enlarged LN mediastinal/axillary-r/o lymphoma vs other ethiology. Plan Can D/c after HD LN biopsy as out pt. Discussed with Richie Cee. Problem List - Problems (1) CAD (coronary artery disease) Code(s): I25.10 - ATHSCL HEART DISEASE OF [place] CORONARY ARTERY W/O ANG PCTRS Qualifiers: Coronary Disease-Associated Artery/Lesion type: bypass graft Associated angina: with unstable angina (2) Diastolic CHF Code(s): I50.30 - UNSPECIFIED DIASTOLIC (CONGESTIVE) HEART FAILURE Qualifiers : Congestive heart failure chronicity: chronic Qualified Code(s): I50.32 - Chronic diastolic (congestive) heart failure (3) ESRD (end stage renal disease) Code(s): N18.6 - END STAGE RENAL DISEASE (4) Fever Code(s): R50.9 - FEVER, UNSPECIFIED Qualifiers: Fever type: unspecified Qualified Code(s): R50.9 - Fever, unspecified
--- NOTE | 2016-09-09 08:31 | DS ---
Physical Examination Vital Signs: Vital Signs Temperature 98.0 F 09/09/16 06:00 Pulse Rate 58 L 09/09/16 06:00 Respiratory Rate 16 09/09/16 06:00 Blood Pressure 120/45 09/09/16 06:00 O2 Sat by Pulse Oximetry (%) 98 09/08/16 21:00 Constitutional: Yes: Calm Eyes: Yes: Conjunctiva Clear, EOM Intact HENT: Yes: Atraumatic Neck: Yes: Supple, Trachea Midline. No: Tenderness, Thyromegaly Cardiovascular: Yes: Regular Rate and Rhythm. No: Bradycardia, Bruit, JVD Respiratory: Yes: Rales (b/b) Gastrointestinal: Yes: Normal Bowel Sounds, Soft, Abdomen, Obese Breast(s): Yes: WNL Extremities: No: Calf Tenderness, Cold, Cyanosis Edema: No Integumentary: No: Erythema Neurological: Yes: Alert, Oriented. No: Aphasia, Loss of Sensation, Seizure ...Motor Strength: WNL Psychiatric: Yes: WNL Labs: Laboratory Results - last 24 hr 09/07/16 19:00 Sodium 137 Potassium 3.9 Chloride 102 Carbon Dioxide 24 Anion Gap 11 BUN 57 H Creatinine 6.1 H Creat Clearance w eGFR 8.83 Random Glucose 130 H Calcium 7.6 L Total Bilirubin 0.6 AST 20 ALT 15 Alkaline Phosphatase 105 Creatine Kinase 11 L Troponin I 0.12 H D C-Reactive Protein 8.1 H Total Protein 6.6 Albumin 2.3 L D Discharge Summary Reason For Visit: FEVERS, HD Current Active Problems Bacteremia (Acute) Fever (Acute) Condition: Stable - Instructions Referrals: Anil Frazier MD [Primary Care Provider] - Disposition: HOME - Home Medications Comprehensive Discharge Medication List: Ambulatory Orders Atorvastatin Ca [Lipitor] 20 mg PO HS 07/10/13 Furosemide [Lasix -] 40 mg PO BID 07/10/13 Carvedilol [Coreg -] 12.5 mg PO BID tablet 08/01/15 Pantoprazole Sodium [Protonix] 40 mg PO DAILY #30 tablet. 08/01/15 Allopurinol [Zyloprim -] 100 mg PO DAILY 08/17/15 Aspirin [ASA -] 81 mg PO DAILY 04/16/16 Bisacodyl [Dulcolax] 1 tablet PO PRN PRN 04/16/16 Multivit-Min/FA/Lycopen/Lutein [Centrum Silver Tablet] 1 each PO DAILY 04/16/16
--- NOTE | 2016-09-09 08:36 | CONSULT ---
Consult - History of Present Illness History of Present Illness: 86 year old man with ESRD on HD who has developed fevers over past few weeks. He was found to have cervical and axillary adenopathy and splenomegaly. - Past Medical History Cardio/Vascular: Yes: Aortic Insufficiency, CHF, HTN, [place], Mitral Insufficiency, Murmur, Pulmonary Hypertension Pulmonary: Yes: Other (Pulm HTN) Gastrointestinal: Yes: Diverticulosis, GI Bleed, Peptic Ulcer Disease, Other ( colon polyps) Renal/: Yes: Renal Failure, BPH, Cancer (Bladder), Renal Calculi (uric acid stones) Psych: Yes: Anxiety Rheumatology: Yes: Gout Dermatology: Yes: Psoriasis - Past Surgical History Past Surgical History: Yes: AV Fistula/Graft, CABG, Cataract Removal (left eye) , Cholecystectomy (open) - Alcohol/Substance Use Hx Alcohol Use: No - Smoking History Smoking history: Never smoked Have you smoked in the past 12 months: No If you are a former smoker, when did you quit?: 2001 - Social History Usual Living Arrangement: With Spouse History of Recent Travel: No Home Medications - Allergies Allergies/Adverse Reactions: Allergies Allergy/AdvReac Type Severity Reaction Status Date / Time Penicillins Allergy Rash Verified 09/07/16 18:51 shellfish derived Allergy Rash Verified 09/07/16 18:51 Sulfa (Sulfonamide Allergy Difficulty Verified 09/07/16 18:51 Antibiotics) Breathing - Home Medications Home Medications: Ambulatory Orders Atorvastatin Ca [Lipitor] 20 mg PO HS 07/10/13 Furosemide [Lasix -] 40 mg PO BID 07/10/13 Carvedilol [Coreg -] 12.5 mg PO BID tablet 08/01/15 Pantoprazole Sodium [Protonix] 40 mg PO DAILY #30 tablet. 08/01/15 Allopurinol [Zyloprim -] 100 mg PO DAILY 08/17/15 Aspirin [ASA -] 81 mg PO DAILY 04/16/16 Bisacodyl [Dulcolax] 1 tablet PO PRN PRN 04/16/16 Multivit-Min/FA/Lycopen/Lutein [Centrum Silver Tablet] 1 each PO DAILY 04/16/16 Family Disease History - Family Disease History Family Disease History: CA: Brother (lung), Other: Father (cva), Mother ( natural causes), Sister (parkinson's) Physical Exam Vital Signs: Vital Signs Temperature 98.0 F 09/09/16 06:00 Pulse Rate 58 L 09/09/16 06:00 Respiratory Rate 16 09/09/16 06:00 Blood Pressure 120/45 09/09/16 06:00 O2 Sat by Pulse Oximetry (%) 98 09/08/16 21:00 Constitutional: Yes: No Distress Eyes: Yes: EOM Intact HENT: Yes: WNL Neck: Yes: Supple, Trachea Midline, Other (Right anterior triangle lymph node 1.5 cm, firm, movable.) Respiratory: Yes: Regular Gastrointestinal: Yes: Soft Extremities: Yes: Other (Right axillary lymph node 2 cm, movable. Left AV fistula with thrill.) Edema: No Problem List - Problems (1) Adenopathy, cervical Assessment/Plan: Cervical and axillary adenopathy in patient with fevers. Need to evaluate for lymphoproliferative disorder. I will schedule biopsy. Code(s): R59.0 - LOCALIZED ENLARGED LYMPH NODES
--- NOTE | 2016-09-09 09:17 | PN ---
Progress Note (short form) - Note Progress Note: RENAL Awake and alert comfortable no more fever Last Vital Signs Temp Pulse Resp BP Pulse Ox 98.0 F 58 L 16 120/45 98 09/09/16 06:00 09/09/16 06:00 09/09/16 06:00 09/09/16 06:00 09/08/16 21:00 lungs crackles at bases cvs s1s2 rr +tory abd soft ext no edema neuro a+ox3 skin no rashes bilateral axillary adenopathy CBC, BMP 09/07/16 19:00 09/07/16 19:00 Current Medications Generic Name Dose Route Start Last Admin Trade Name Freq PRN Reason Stop Dose Admin Acetaminophen 650 mg 09/07/16 21:18 Tylenol - PO Q6H PRN FEVER Allopurinol 100 mg 09/08/16 10:00 09/08/16 10:02 Zyloprim - PO 100 mg DAILY CHANTEL Administration Aspirin 81 mg 09/08/16 10:00 09/08/16 10:02 Asa - PO 81 mg DAILY CHANTEL Administration Atorvastatin Calcium 20 mg 09/07/16 22:00 09/08/16 21:26 Lipitor - PO 20 mg HS CHANTEL Administration Bisacodyl 5 mg 09/07/16 21:14 Dulcolax - PO PRN PRN CONSTIPATION Carvedilol 12.5 mg 09/07/16 22:00 09/08/16 21:27 Coreg - PO 12.5 mg BID CHANTEL Administration Clopidogrel Bisulfate 75 mg 09/08/16 10:00 09/08/16 10:02 Plavix - PO 75 mg DAILY CHANTEL Administration Heparin Sodium (Porcine) 1,000 unit 09/08/16 09:00 Heparin - IVPUSH 09/08/16 09:01 ONCE ONE Ceftriaxone Sodium 1 gm/ 50 mls @ 100 mls/hr 09/08/16 10:50 09/08/16 12:31 Dextrose IVPB 100 mls/hr DAILY CHANTEL Administration Azithromycin 250 mls @ 250 mls/hr 09/08/16 10:50 09/08/16 13:59 Zithromax 500mg Ivpb (Pre-Docked) IVPB 250 mls/hr DAILY CHANTEL Administration Multivitamins/Minerals 1 each 09/08/16 10:00 09/08/16 10:02 Theragran-M PO 1 each DAILY CHANTEL Administration Pantoprazole Sodium 40 mg 09/08/16 10:00 09/08/16 10:02 Protonix - PO 40 mg DAILY CHANTEL Administration IMPRESSION esrd axillary adenopathy with monocytes doubt pneumonia PLAN for axillary biopsy doubt need for antibiotics will dialyze today. Monitor for fever no objection to dc MV
[2016-09-09] MEDS ORDERED: DEXTROSE 5%-WATER - 50 ML IVPB ONE (09:42)
[2016-09-09] MEDS ORDERED: cefTRIAXone SODIUM 1 GM VIAL ONE (09:42)
[2016-09-09] MEDS: CEFTRIAXONE 1 GM in DEXTROSE 5%-WATER - 50 ML IVPB SCH (10:02)
[2016-09-09] MEDS: ALLOPURINOL 100 MG TABLET (FP) PO SCH (10:08)
[2016-09-09] MEDS: PANTOPRAZOLE 40 MG TABLET (FP) PO SCH (10:10)
[2016-09-09] MEDS: MULTIVITAMINS THER W-MINERALS COMBO TABLET (FP) PO SCH (10:10)
[2016-09-09] MEDS: AZITHROMYCIN IVPB 250 ML IVPB SCH ×2 (10:10→11:19)
[2016-09-09] MEDS: CARVEDILOL 12.5 MG TABLET (FP) PO SCH (10:12)
[2016-09-09] MEDS: CLOPIDOGREL BISULFATE 75 MG TABLET (FP) PO SCH (10:12)
[2016-09-09] MEDS: ASPIRIN 81 MG CHEWABLE TABLETS PO SCH (10:12)
[2016-09-09] MEDS ORDERED: LIDOCAINE 2.5%/PRILOCAINE 2.5% (5 Gram/TUBE) TP ONE ×2 (13:15→14:30)
[2016-09-09] MEDS ORDERED: HEPARIN NA (PORCINE) 5,000 UNITS/ML 1ML VIAL IVPUSH ONE (16:15)
[2016-09-09 17:09] LABS: TROPONIN I 0.11 ng/ml (0.00-0.05)
[2016-09-09 19:54] VITALS: BP 105/45; PULSE 62
== END 2016-09-09 21:12 | disposition home or self-care (01) | DRG 814 ==
LOC: JER 18:45 → JERBED 21:17 → J8W 23:25
PROVIDERS: ADMIT Internal Medicine; ATTEND Internal Medicine
PROC: 5A1D00Z (ICD-10-PCS; principal; 2016-09-09)
DX: R59.0 Localized enlarged lymph nodes (principal); N18.6 End stage renal disease; R78.81 Bacteremia; I13.2 Hypertensive heart and chronic kidney disease with heart failure and with stage 5 chronic kidney disease, or end stage renal disease; I50.32 Chronic diastolic (congestive) heart failure; E78.5 Hyperlipidemia, unspecified; I27.2 Other secondary pulmonary hypertension; I25.2 Old myocardial infarction; L40.8 Other psoriasis; I44.0 Atrioventricular block, first degree; I44.7 Left bundle-branch block, unspecified; K27.9 Peptic ulcer, site unspecified, unspecified as acute or chronic, without hemorrhage or perforation; I25.10 Atherosclerotic heart disease of native coronary artery without angina pectoris; K57.90 Diverticulosis of intestine, part unspecified, without perforation or abscess without bleeding; N40.0 Benign prostatic hyperplasia without lower urinary tract symptoms; N20.0 Calculus of kidney; K63.5 Polyp of colon; D64.9 Anemia, unspecified; M10.9 Gout, unspecified; R16.1 Splenomegaly, not elsewhere classified; F41.9 Anxiety disorder, unspecified; R01.1 Cardiac murmur, unspecified; I08.0 Rheumatic disorders of both mitral and aortic valves; Z99.2 Dependence on renal dialysis; D69.6 Thrombocytopenia, unspecified; Z95.1 Presence of aortocoronary bypass graft; Z85.51 Personal history of malignant neoplasm of bladder
CPT/HCPCS: 36415; 71010-TC; 71250-TC; 80053; 82550; 82803; 82930; 83605; 84484; 85025; 85610; 85651; 85730; 86140; 86618; 86850; 86900; 86901; 87040; 93005; 93010; 99285-25; G0480; J1644

== ENCOUNTER 2016-09-14 06:25 | Day surgery (SDC) | payer OTHER, MEDICARE ==
[2016-09-13 10:11] VITALS: BMI 28.8
[~2016-09-14 06:25] MED LIST: LIDOCAINE HCL 1%, 10 MG/ML (20ML VIAL) IJ ONE
[2016-09-14] MEDS ORDERED: LIDOCAINE HCL 1%, 10 MG/ML (20ML VIAL) ONE (07:20)
[2016-09-14] MEDS ORDERED: BUPIVACAINE HCL/PF 0.5% (5MG/ML) 10 ML VIAL ONE (07:20)
[2016-09-14 07:24] LABS: ALBUMIN 2.1 g/dl (3.4-5.0); ANION GAP 13 (8-16); BILIRUBIN,TOTAL 0.6 mg/dL (0.2-1.0); CALCIUM 7.6 mg/dL (8.5-10.1); CO2 26 mmol/L (21-32); GLUCOSE,RANDOM 106 mg/dL (74-106); SGOT/AST 28 U/L (15-37); SGPT/ALT 18 U/L (12-78); TOT PROT 6.4 g/dl (6.4-8.2)
[2016-09-14 07:29] LABS: ALK PHOS 129 U/L (45-117)
[2016-09-14 07:37] LABS: CREATININE 7.9 mg/dL (0.7-1.3)
[2016-09-14] MEDS ORDERED: MIDAZOLAM HCL 2 MG/2 ML SINGLE DOSE VIAL ONE (07:51)
--- NOTE | 2016-09-14 08:02 | HP ---
Satellite [facility] - Chief Complaint History of Present Illness: 86 year old male, ESRD on HD, with fatigue, fever and enlarge lymph node in neck and axilla. History Source: Patient, Medical Record Limitations to Obtaining History: No Limitations - Past Medical History Allergies/Adverse Reactions: Allergies Allergy/AdvReac Type Severity Reaction Status Date / Time Penicillins Allergy Rash Verified 09/14/16 07:36 shellfish derived Allergy Rash Verified 09/14/16 07:36 Sulfa (Sulfonamide Allergy Difficulty Verified 09/14/16 07:36 Antibiotics) Breathing Cardiovascular: Yes: Aortic Insufficiency, CHF, HTN, [place], Mitral Insufficiency, Murmur, Pulmonary Hypertension Pulmonary: Yes: Other (Pulm HTN) Gastrointestinal: Yes: Diverticulosis, GI Bleed, Peptic Ulcer Disease, Other ( colon polyps) Renal/: Yes: Renal Failure, BPH, Cancer (Bladder), Renal Calculi (uric acid stones) Heme/Onc: Yes: Anemia Rheumatology: Yes: Gout Dermatology: Yes: Psoriasis - Current Medications Current Medications: Home Medications Medication Instructions Recorded Atorvastatin Ca [Lipitor] 20 mg PO HS 07/10/13 Furosemide [Lasix -] 20 mg PO BID 07/10/13 Pantoprazole Sodium [Protonix] 40 mg PO DAILY #30 tablet. 08/01/15 Allopurinol [Zyloprim -] 100 mg PO DAILY 08/17/15 Aspirin [ASA -] 81 mg PO DAILY 04/16/16 Bisacodyl [Dulcolax] 1 tablet PO PRN PRN 04/16/16 Multivit-Min/FA/Lycopen/Lutein 1 each PO DAILY 04/16/16 [Centrum Silver Tablet] Carvedilol [Coreg -] 6.25 mg PO BID 09/13/16 Satellite Physical Exam - Physical Examination Vital Signs: Vital Signs Period Temp Pulse Resp BP Sys/Valdez Pulse Ox Last 24 Hr 98.4 F-98.4 F 56-56 20-20 98-98/40-40 95 General Appearance: Alert & Oriented x3, Anxious ENT: Clear, Other (Right cervical lymph node 1.5 cm movable.) Lung: Clear to auscultation Heart: Regular rate & rhythm Breasts: Other (Right axilla node 1 cm.) Abdomen: Soft Extremities: No edema Satellite Impression/Plan - Impression/Plan Impression: Lymphadenopathy, r/o lymphoma Operative Procedure: Biopsy right cervical lymph node Date to be Performed: 09/14/16
[2016-09-14] MEDS ORDERED: BUPIVACAINE HCL/PF 0.5% (5MG/ML) 10 ML VIAL IJ ONE (08:23)
[2016-09-14] MEDS ORDERED: LIDOCAINE HCL 1%, 10 MG/ML (20ML VIAL) IJ ONE (08:23)
--- NOTE | 2016-09-14 08:44 | OP ---
Operative Note - Note: Operative Date: 09/14/16 Pre-Operative Diagnosis: Lymphadenopathy Operation: Excisional biopsy right cervical lymph node Findings: 2 cm node right neck. Post-Operative Diagnosis: Same as Pre-op Surgeon: Adam Westbrook Anesthesiologist/DARKLIGHT INSPECTOR: Yared Hall Anesthesia: Fractional Specimens Removed: Lymph node Operative Report Dictated: Yes
[2016-09-14] MEDS ORDERED: ACETAMINOPHEN 325 MG TABLET (FP) PO PRN (08:45)
[2016-09-14 09:58] VITALS: BP 98/38; PULSE 58; TEMP 98.1
--- NOTE | 2016-09-17 10:29 | OP ---
DATE OF OPERATION: 09/14/2016 SURGEON: Adam Hoyos MD PROCEDURE: Excisional biopsy of right cervical lymph node. PREOPERATIVE DIAGNOSIS: Lymphadenopathy. POSTOPERATIVE DIAGNOSIS: Lymphadenopathy. ANESTHESIA: Fractional. ANESTHESIOLOGIST: Yared Hall MD OPERATIVE FINDINGS: There was an approximately 2-cm enlarged lymph node in the right anterior triangle of the neck. The node appeared hemorrhagic and edematous. OPERATIVE PROCEDURE: Following routine patient identification with side and site verification, the right neck was prepped with ChloraPrep. Timeout was performed. Xylocaine 1% was infiltrated over the node, and a transverse incision made. This was carried into subcutaneous plane using cautery for hemostasis. The node was just under the skin and was dissected free from the surrounding tissues using cautery. Portion of the specimen was sent to the microbiology lab for routine culture, fungus, and AFB and the remainder sent to Pathology fresh. The wound was closed with interrupted suture of 3-0 Vicryl in subcutaneous tissues with running subcuticular suture of 4-0 Biosyn on the skin. A sterile dressing was applied, and the patient was taken to the recovery room in stable condition. ADAM HOYOS M.D. [id number]
--- NOTE | 2016-09-21 17:00 | PATH ---
Surgical Pathology Report Patient Name: REJI MARMOLEJO [facility]. Rec. #: [id number] /Age/Gender: 1930 (Age: 86) / M Account: [id number] Location: [facility] SURGICAL Taken: 09/14/2016 Received: 09/14/2016 Reported: 09/21/2016 Physicians: Drew Mcadams M.D. Specimen(s) Received RIGHT CERVICAL LYMPH NODE Clinical History Lymphadenopathy, FUO 86 yo male with ESRD on dialysis Final Diagnosis LYMPH NODE, RIGHT CERVICAL, EXCISIONAL BIOPSY: CASTLEMAN DISEASE WITH HHV8 POSITIVITY (SEE COMMENT). Comment: This case was seen in consultation with hematopathology service at the [facility], [place], [place] ([id number], Dr. Brantley). The diagnosis above reflects the consultation opinion. Sections show a slightly enlarged lymph node surrounded by a thickened capsule. There is a vaguely nodular architecture. There are scattered follicles with a fibrotic background. Some of the germinal centers of sclerotic with onion-skinning of the mantle zone B-cells. The interfollicular areas are comprised predominantly of numerous plasma cells and scattered small lymphocytes and histiocytes. Immunohistochemical stains performed and interpreted at the [facility] show the following: A stain for CD20 highlights the follicles; the germinal centers are additionally positive for BCL-6 and that negative for BCL-2. Stain for CD3 highlights scattered interfollicular T-cells. Stains for CD21 and CD20 highlight intact follicular dendritic meshwork. A stain for BCL-1 is negative for lymphocytes. A stain for CD34 highlights prominent vasculature. A stain for CD68 highlights numerous interfollicular histiocytes. A stain for Ae1/Ae3 is negative. A stain for HHV8 is positive, especially mantle zone areas. In situ hybridization for RAHAT highlights rare positive cells. In situ hybridization for [place] and lambda light chains show the numerous plasma cells to be polytypic. Electronically Signed Kyler Dupont M.D. Gross Description Received fresh, labeled "right cervical lymph node" is a 0.9 x 0.7 x 0.4 cm lanier-pink rubbery lymph node. The lymph node is bisected, a portion is submitted in RPMI for flow cytometry; the rest of the specimen is submitted in one cassette. AF/09/14/2016 final/09/14/2016
== END 2016-09-14 09:55 | disposition home or self-care (01) ==
LOC: JASU-SURG 06:25
PROVIDERS: ATTEND Surgery
PROC: 07B10ZX Excision of Right Neck Lymphatic, Open Approach, Diagnostic (ICD-10-PCS; principal; 2016-09-14 08:00)
DX: R59.0 Localized enlarged lymph nodes (principal)
CPT/HCPCS: 36415; 80053; 87070; 87075; 87102; 87116; 87205; 87206; 87210; 88305-TC

== ENCOUNTER 2016-10-22 12:35 | Inpatient (IN) | payer OTHER, MEDICARE ==
[2016-10-22 13:10] LABS: MCH 34.2 pg (25.7-33.7); MCHC 33.1 g/dl (32.0-35.9)
[2016-10-22 13:13] LABS: MEAN CELL VOLUME 103.3 fl (80-96); MEAN PLT VOLUME 9.7 fl (7.5-11.1); RDW 21.2 % (11.9-15.9); WHITE BLOOD COUNT 9.3 K/mm3 (4.0-10.0)
[2016-10-22] MEDS ORDERED: ACETAMINOPHEN 1000 MG/100 ML VIAL (NON FORMULARY) IVPB ONE (13:15)
--- NOTE | 2016-10-22 13:17 | PDOC ---
History of Present Illness - General History Source: Patient, Family, Old Records Exam Limitations: No Limitations - History of Present Illness Initial Comments: 10/22/16 15:35 The patient is a 86 year old male presenting with his family, with a significant past medical history of castlemans disease, CAD, (sp CABG and stent) , CHF, pulmonary HTN, HLD, renal failure, bladder CA, renal failure on dialysis (M, W, F), kidney stones, psoriasis, who presents to the emergency department with chest pain, low blood pressure and high heart rate for the last couple of days. His family reports that the patient has had a slight cough, mild fevers and chills over the last 2 weeks. He states that he has been using his Nitro for angina much more frequently over the last 2 months from the advice his exercise teacher gave him. The patient went to dialysis yesterday and had a full treatment. He went again today and received 1 hour out of the 3 full hours he was supposed to receive due to the low blood pressure and high heart rate. The family reports that the patient's ability to walk long distance and climb stairs has significantly decreased over the last 2 months. The patient denies shortness of breath, headache and dizziness. Denies nausea, vomit, diarrhea and constipation. Denies dysuria, frequency, urgency and hematuria. Surgical Hx: AV Fistula/Graft, CABG, Cataract Removal (left eye), Cholecystectomy Allergies: penicillins, shellfish, sulfa PCP: Anil Patel MD Urologist: Yared Pereyra MD Personal Banking Officer: Jalen Root MD Pcb Design Engineer: Dr. Juanjose Quiroz <Bishop Dillon - Last Filed: 10/22/16 16:09> - General History Source: Patient Exam Limitations: No Limitations <Ryley Peña - Last Filed: 10/22/16 18:58> - General Chief Complaint: Chest Pain Stated Complaint: CHEST PAIN Time Seen by Provider: 10/22/16 12:47 Past History <Bishop Dillon - Last Filed: 10/22/16 16:09> - Past Medical History Anemia: No Asthma: No Cancer: Yes (BLADDER, SKIN ON TOP OF HEAD) Cardiac Disorders: Yes (SC, BYPASS SX, x1 Stent) CVA: No COPD: No CHF: Yes Dementia: No Diabetes: No Dialysis: Yes (M-W-F) GI Disorders: No Disorders: Yes (BLADDER CA, L-ARM FISTULA/Dialysis, kidney stones) HTN: Yes Hypercholesterolemia: Yes Liver Disease: No Seizures: No Thyroid Disease: No - Surgical History Abdominal Surgery: No Appendectomy: No Cardiac Surgery: Yes (BYPASS) Cholecystectomy: Yes Lung Surgery: No Neurologic Surgery: No Orthopedic Surgery: No - Immunization History Immunization Up to Date: Yes - Psycho/Social/Smoking Cessation Hx Anxiety: No Suicidal Ideation: No Smoking History: Never smoked Have you smoked in the past 12 months: No If you are a former smoker, when did you quit?: 2001 Information on smoking cessation initiated: No Hx Alcohol Use: No Drug/Substance Use Hx: No Substance Use Type: None Hx Substance Use Treatment: No <Ryley Peña - Last Filed: 10/22/16 18:58> - Past Medical History Allergies/Adverse Reactions: Allergies Allergy/AdvReac Type Severity Reaction Status Date / Time Penicillins Allergy Rash Verified 09/14/16 07:36 shellfish derived Allergy Rash Verified 09/14/16 07:36 Sulfa (Sulfonamide Allergy Difficulty Verified 09/14/16 07:36 Antibiotics) Breathing Home Medications: Ambulatory Orders Atorvastatin Ca [Lipitor] 20 mg PO HS 07/10/13 Furosemide [Lasix -] 20 mg PO BID 07/10/13 Pantoprazole Sodium [Protonix] 40 mg PO DAILY #30 tablet. 08/01/15 Allopurinol [Zyloprim -] 100 mg PO DAILY 08/17/15 Aspirin [ASA -] 81 mg PO DAILY 04/16/16 Bisacodyl [Dulcolax] 1 tablet PO PRN PRN 04/16/16 Multivit-Min/FA/Lycopen/Lutein [Centrum Silver Tablet] 1 each PO DAILY 04/16/16 Carvedilol [Coreg -] 6.25 mg PO BID 09/13/16 Review of Systems - Review of Systems Able to Perform ROS?: Yes Comments:: 10/22/16 15:35 CONSTITUTIONAL: Reported: Fever, chills, malaise No reported: Diaphoresis, Generalized Weakness, Loss of Appetite HEENT: No reported: Rhinorrhea, Nasal Congestion, Throat Pain, Throat Swelling, Difficulty Swallowing, Mouth Swelling, Ear Pain, Eye Pain, Visual Changes CARDIOVASCULAR: Reported: Chest pain No reported: Syncope, Palpitations, Irregular Heart Rate, Lightheadedness, Peripheral Edema RESPIRATORY: No reported: Cough, Shortness of Breath, SOB with Exertion, Orthopnea, Wheezing , Stridor, Hemoptysis GASTROINTESTINAL: No reported: Abdominal pain, Abdominal Distension, Nausea, Vomiting, Diarrhea, Constipation, Melena, Hematochezia GENITOURINARY: No reported: Dysuria, Frequency, Urgency, Hesitancy, Flank Pain, Genital Pain MUSCULOSKELETAL: No reported: Myalgia, Arthralgia, Joint Swelling, Back pain, Neck Pain SKIN: No reported: Rash, Itching, Pallor HEMEATOLOGIC/IMMUNOLOGIC: No reported: Easy Bleeding, Easy Bruising, Lymphadenopathy, Frequent infections ENDOCRINE: No reported: Unexplained Weight Gain, Unexplained Weight Loss, Heat Intolerance , Cold Intolerance NEUROLOGIC: No reported: Headache, Focal Weakness, Paresthesias, Vertigo, Lightheadedness, Unsteady Gait, Seizure, Mental Status Changes, Incontinence PSYCHIATRIC: No reported: Anxiety, Depression " <Bishop Dillon - Last Filed: 10/22/16 16:09> *Physical Exam - Vital Signs Last Vital Signs Temp Pulse Resp BP Pulse Ox 102.2 F H 110 H 20 90/65 94 L 10/22/16 13:14 10/22/16 12:45 10/22/16 12:45 10/22/16 12:45 10/22/16 12:45 - Physical Exam Comments: 10/22/16 15:35 GENERAL: The patient is awake, alert, and fully oriented, Nontoxic - in no acute distress. HEAD: Normocephalic, atraumatic. EYES: extraocular movements intact, sclera anicteric, conjunctiva clear. ENT: Normal voice, Moist mucous membranes. NECK: Normal range of motion, supple LUNGS: (+) Basilar rales at he left base. No wheezes, no rhonchi HEART: Regular rate and rhythm, without murmur, rub or gallop. ABDOMEN: Soft, nontender, normoactive bowel sounds. No guarding, no rebound.No CVA tenderness EXTREMITIES: (+) Fistula in the left upper extremity with thrill. Trace edema lower extremities bilaterally. Normal range of motion. No clubbing or cyanosis. No cords, erythema, or tenderness. NEUROLOGICAL: No facial assymetry, Normal speech, PSYCH: Normal mood, normal affect. SKIN: Warm, Dry, normal turgor <Bishop Dillone - Last Filed: 10/22/16 16:09> - Vital Signs Last Vital Signs Temp Pulse Resp BP Pulse Ox 102.2 F H 110 H 20 90/65 94 L 10/22/16 13:14 10/22/16 12:45 10/22/16 12:45 10/22/16 12:45 10/22/16 12:45 <Ryley Peña - Last Filed: 10/22/16 18:58> Heart Score/ECG Review - ECG Impressions Comment:: 10/22/16 13:21 Twelve-lead EKG was performed and reviewed by me. There is normal sinus rhythm with a rate of [address] depressions v4-v5 peaky appearing T waves q waves in inferior leads <Ryley Peña - Last Filed: 10/22/16 18:58> ED Treatment Course - LABORATORY CBC & Chemistry Diagram: 10/22/16 12:58 10/22/16 12:58 - ADDITIONAL ORDERS Additional order review: Laboratory Results 10/22/16 10/22/16 10/22/16 13:20 13:15 12:58 INR 1.50 H PTT (Actin FS) 38.0 H VBG pH 7.29 L POC VBG pCO2 48.9 POC VBG pO2 30.4 D Mixed VBG HCO3 22.8 Sodium 136 Potassium 5.4 H D Chloride 98 Carbon Dioxide 22 D Anion Gap 16 BUN 83 H D Creatinine 6.1 H Creat Clearance w eGFR 8.83 Random Glucose 83 Calcium 7.3 L Total Bilirubin 0.9 AST 45 H D ALT 51 D Alkaline Phosphatase 109 D Creatine Kinase 24 L Troponin I 0.95 H* D B-Natriuretic Peptide 867267.15 H Total Protein 6.0 L D Albumin 2.3 L 10/22/16 12:58 RBC 3.60 L MCV 103.3 H MCHC 33.1 RDW 21.2 H D MPV 9.7 D Neutrophils % Y Lymphocytes % Y - Medications Given in the ED: ED Medications Discontinued Medications Generic Name Dose Route Start Last Admin Trade Name Freq PRN Reason Stop Dose Admin Acetaminophen 1,000 mg 10/22/16 13:15 10/22/16 13:23 Ofirmev Injection - IVPB 10/22/16 13:16 1,000 mg ONCE ONE Administration <Bishop Dillon - Last Filed: 10/22/16 16:09> - LABORATORY CBC & Chemistry Diagram: 10/22/16 12:58 10/22/16 16:53 - RADIOLOGY Radiology Studies Ordered: Category Date Time Status CHEST X-RAY PORTABLE* [RAD] Stat Radiology 10/22/16 12:51 Ordered <Ryley Peña - Last Filed: 10/22/16 18:58> Medical Decision Making - Medical Decision Making 10/22/16 13:49 Dr. Osorio was called regarding the patient at 1:50pm Dr. Osorio was consulted regarding the patient at 2:00pm [phone] Dr. Root was called regarding the patient at 3:33pm. Dr. Tatum covering. Dr. Tatum was consulted regarding the patient at 3:36pm [phone] Dr. Navarro was called regarding the patient at 4:10pm [phone] Dr. Juanjose Quiroz was called regarding the patient at 4:12pm. Dr. Dumont [phone] <Bishop Dillon - Last Filed: 10/22/16 16:09> - Medical Decision Making 10/22/16 13:17 86y M hx of kelsey calvin, CAD s/p SC/CABG, pulm htn, chf, ESRD (dialysis MWF) , bladder CA, presents with complaint of weakness. The pt states he was at dialysis when they noticed his BP was alittle low and HR was elevated. He endorsed malaise and feeling generally weak the past week, also endorses a mild cough the past week. on exam pt is in no distress, is hot to the touch, is slightyl tachycardic, and has some rales to the L base. pt noted febrile rectally - sepsis orderset obtained consider possible pna will ck labs pt bp borderline, will give gentle fluids pt does endorse mild cp, will obtain trop and ekg to screen for acs 10/22/16 14:07 pts labs reviewed trop noted to be elevated at .95 - suspect may be secondary to demand ischemia case dw dr. osorio - feels his fever may be due to his castlemans dz - he states he was aware of pts fever from yesterday - was supposed to get some vaconmycin this morning but pts tates he never got it due to them stopping his dialysis early will place the pt in observation will give pt a dose of vancomycin cultures pending stable for med surg will notify dr. root to evaluate the pt for his +trop 10/22/16 15:26 pts bp on the low side will continue with fluid hydration lactic acid elevated to 4.4 concern with putting central line due to the pts platelets if bp not improving with fluids will upgrade to ICU pt denies any lightheadedness, palpitations or any other complaints. 10/22/16 15:[address] tatum agree withour plan his trop is likely demand driven no active chest pain will trend trops 10/22/16 16:35 pt was recently on prednisone and is on a taper ?adrenal crisis? will give pt dose of 100mg hydrocortisone to se if it helps his BP CRITICAL CARE DOCUMENTATION: I spent ~35 minutes of Critical Care time, excluding separately billable procedures, involving high complexity decision making to assess, manipulate and support vital system function(s) to treat single or multiple vital organ system failure and/or to prevent further life threatening deterioration of the patient' s condition. 10/22/16 18:00 ps bp improved but not completely back to normal map in the high 50s to low 60s. will start dopamine pt feels ok otherwise without much complaints 10/22/16 18:58 trop and LA improving from prior BP imprving with dopamine <Ryley Peña - Last Filed: 10/22/16 18:58> *DC/Admit/Observation/Transfer - Attestations Scribe Attestion: 10/22/16 15:36 Documentation prepared by Bishop Dillon, acting as medical records coordinator for Ryley Peña MD <Bishop Dillon - Last Filed: 10/22/16 16:09> - Discharge Dispostion Admit: Yes <Ryley Peña - Last Filed: 10/22/16 18:58> Diagnosis at time of Disposition: Elevated troponin, Thrombocythemia Fever Qualifiers: Fever type: due to other condition Qualified Code(s): R50.81 - Fever presenting with conditions classified elsewhere CAD (coronary artery disease) Qualifiers: Coronary Disease-Associated Artery/Lesion type: unspecified vessel or lesion type [place] vs. transplanted heart: jackson heart Associated angina: with stable angina Qualified Code(s): I25.118 - Atherosclerotic heart disease of jackson coronary artery with other forms of angina pectoris Chronic kidney disease (CKD) Qualifiers: Chronic kidney disease stage: unspecified stage Qualified Code(s): N18.9 - Chronic kidney disease, unspecified Sepsis Qualifiers: Sepsis type: sepsis due to unspecified organism Qualified Code(s): A41.9 - Sepsis, unspecified organism - Discharge Dispostion Condition at time of disposition: Critical - Referrals
[2016-10-22] MEDS ORDERED: SODIUM CHLORIDE 250 ML IV STA (13:22)
[2016-10-22] MEDS ORDERED: ACETAMINOPHEN INJECTION 100 ML IVPB ONE (13:24)
[2016-10-22 13:30] LABS: ALBUMIN 2.3 g/dl (3.4-5.0); ANION GAP 16 (8-16); BILIRUBIN,TOTAL 0.9 mg/dL (0.2-1.0); CALCIUM 7.3 mg/dL (8.5-10.1); CO2 22 mmol/L (21-32); CREATININE 6.1 mg/dL (0.7-1.3); GLUCOSE,RANDOM 83 mg/dL (74-106); SGOT/AST 45 U/L (15-37); SGPT/ALT 51 U/L (12-78)
[2016-10-22 13:34] LABS: VENOUS BLOOD GAS HCO3 22.8 meq/L (19-25)
[2016-10-22 13:35] LABS: VENOUS PH 7.29 (7.32-7.42)
[2016-10-22 13:40] LABS: INR 1.5 (0.82-1.09); PROTHROMBIN TIME (PATIENT) 16.6 SEC (9.98-11.88)
[2016-10-22 13:44] LABS: ALK PHOS 109 U/L (45-117); CPK 24 IU/L (39-308)
[2016-10-22 13:47] LABS: TROPONIN I 0.95 ng/ml (0.00-0.05)
[2016-10-22] MEDS ORDERED: ASPIRIN 81 MG CHEWABLE TABLETS PO ONE (13:49)
[2016-10-22] MEDS ORDERED: ASPIRIN 81 MG CHEWABLE TABLETS ONE (13:57)
[2016-10-22] MEDS ORDERED: VANCOMYCIN 1,250 MG in DEXTROSE 5%-WATER - 250 ML IVPB ONE (14:00)
--- NOTE | 2016-10-22 14:06 | EKG ---
Test Reason : Blood Pressure : / mmHG Vent. Rate : 109 BPM Atrial Rate : 109 BPM P-R Int : 212 ms QRS Dur : 112 ms QT Int : 324 ms P-R-T Axes : 038 -58 125 degrees QTc Int : 436 ms SINUS TACHYCARDIA WITH 1ST DEGREE A-V BLOCK WITH PREMATURE ATRIAL COMPLEXES WITH ABERRANT CONDUCTION SUBOPTIMAL TRACING LEFT AXIS DEVIATION INCOMPLETE LEFT BUNDLE BRANCH BLOCK MARKED ST ABNORMALITY, POSSIBLE LATERAL SUBENDOCARDIAL INJURY ABNORMAL ECG WHEN COMPARED WITH ECG OF 07-SEP-2016 20:14, RHYTHM CHANGEN ABOVE REPEAT EKG IF CLINICALLY INDICATED Confirmed by JERE TOMPKINS MD ([id number]) on 10/22/2016 2:06:26 PM Referred By: Confirmed By:JERE TOMPKINS MD
[2016-10-22] MEDS ORDERED: VANCOMYCIN 1,000 MG in DEXTROSE 5%-WATER - 250 ML IVPB ONE (14:12)
[2016-10-22] MEDS ORDERED: SODIUM CHLORIDE 500 ML IV STA ×3 (14:17→16:42)
[2016-10-22] MEDS ORDERED: BISACODYL 5 MG TABLET.DR (FP) PO PRN (14:37)
--- NOTE | 2016-10-22 14:43 | HP ---
Admitting History and Physical - Admission Chief Complaint: 86 y.o M with ESRD was sent from HD center to ER due to fever 102(R), hypotension, tachycardia and chest pains History of Present Illness: Castelman's disease. 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 History of PUD and GI bleed, 2016 hospitalized.. ESRD with AVF left arm M-W-F Gout. ASHD. CABG. s/p NC. Stent. Stable Angina. CHF-diastolic. Elevated PAP. Psoriasis. HTN. 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: Alzheimer's, CVA, Dementia, Migraine, Multiple Sclerosis, Peripheral Neuropathy, Parkinson's, Seizure, Syncope, TIA, Vertigo, Other Cardiovascular: Yes: Aortic Insufficiency, CHF, HTN, NC, Mitral Insufficiency, Murmur, Pulmonary Hypertension Pulmonary: Yes: Other (Pulm HTN) Gastrointestinal: Yes: Diverticulosis, GI Bleed, Peptic Ulcer Disease, Other ( colon polyps) Renal/: Yes: Renal Failure, BPH, Cancer (Bladder), Renal Calculi (uric acid stones) Heme/Onc: Yes: Anemia, Cancer (Bladder), Other (Castelman's disease) Psych: Yes: Anxiety Musculoskeletal: No: Bursitis, Chronic low back pain, Hemiparesis, Hemiplegia, Osteoarthritis, Paraplegia, Other Rheumatology: Yes: Gout, Other (Vasculitis-LCCV LE) Endocrine: No: Bremer's Disease, Ngoc's Disease, Diabetes Insipidus, Diabetes Mellitus, Hyperparathyroidism, Hyperthyroidism, Hypothyroidism, Osteopenia, SIADH, Other Dermatology: Yes: Psoriasis - Past Surgical History Past Surgical History: Yes: AV Fistula/Graft, CABG, Cataract Removal (left eye) , Cholecystectomy (open), Stent - Smoking History Smoking history: Never smoked Have you smoked in the past 12 months: No If you are a former smoker, when did you quit?: 2001 - Alcohol/Substance Use Hx Alcohol Use: No - Social History History of Recent Travel: No Home Medications - Allergies Allergies/Adverse Reactions: Allergies Allergy/AdvReac Type Severity Reaction Status Date / Time Penicillins Allergy Rash Verified 09/14/16 07:36 shellfish derived Allergy Rash Verified 09/14/16 07:36 Sulfa (Sulfonamide Allergy Difficulty Verified 09/14/16 07:36 Antibiotics) Breathing - Home Medications Home Medications: Ambulatory Orders Atorvastatin Ca [Lipitor] 20 mg PO HS 07/10/13 Furosemide [Lasix -] 20 mg PO BID 07/10/13 Pantoprazole Sodium [Protonix] 40 mg PO DAILY #30 tablet. 08/01/15 Allopurinol [Zyloprim -] 100 mg PO DAILY 08/17/15 Aspirin [ASA -] 81 mg PO DAILY 04/16/16 Bisacodyl [Dulcolax] 1 tablet PO PRN PRN 04/16/16 Multivit-Min/FA/Lycopen/Lutein [Centrum Silver Tablet] 1 each PO DAILY 04/16/16 Carvedilol [Coreg -] 6.25 mg PO BID 09/13/16 Family Disease History - Family Disease History Family Disease History: CA: Brother (lung), Other: Father (cva), Mother ( natural causes), Sister (parkinson's) Review of Systems - Review of Systems Constitutional: reports: Chills, Diaphoresis, Fever, Loss of Appetite, Malaise, Night Sweats, Weakness. denies: Lethargy Eyes: denies: Double Vision, Eye Pain, Photophobia, Recent Change in Vision HENT: denies: Difficult Swallowing, Ear Discharge, Epistaxis, Toothache, Ringing in Ears Neck: denies: Decreased ROM, Lumps, Pain on Movement, Stiffness, Tenderness Cardiovascular: reports: Chest Pain, Shortness of Breath Respiratory: reports: Exercise Intolerance, SOB, SOB on Exertion. denies: Hemoptysis, Wheezing Gastrointestinal: denies: Abdominal Pain, Bloating, Dysphagia, Vomiting Genitourinary: denies: Burning, Discharge Breasts: reports: No Symptoms Reported Musculoskeletal: reports: Extremity Pain Integumentary: reports: Lesions (psoriasis) Neurological: reports: Confusion, Unsteady Gait, Weakness. denies: Change in LOC, Change in Speech Endocrine: reports: Excessive Sweating. denies: Increased Hunger, Unexplained Weight Loss Hematology/Lymphatic: reports: Swollen Glands Psychiatric: reports: Altered Sleep Pattern, Anxiety, Depression, Hallucinations (occ schools of fish). denies: Paranoia, Suicidal Physical Examination Vital Signs: Vital Signs Temperature 102.2 F H 10/22/16 13:14 Pulse Rate 110 H 10/22/16 12:45 Respiratory Rate 20 10/22/16 12:45 Blood Pressure 90/65 10/22/16 12:45 O2 Sat by Pulse Oximetry (%) 94 L 10/22/16 12:45 Constitutional: Yes: Anxious, Moderate Distress, Pallor Eyes: Yes: Conjunctiva Clear, EOM Intact HENT: Yes: Atraumatic, Normocephalic. No: Drooling Neck: Yes: Supple, Trachea Midline. No: Decreased ROM Cardiovascular: Yes: Regular Rate and Rhythm, Tachycardia, JVD, Murmur, S1, S2 Respiratory: Yes: Regular, SOB, SOB on Exertion. No: Accessory Muscle Use, Bradypnea, Dullness Gastrointestinal: Yes: Normal Bowel Sounds, Soft, Ascites. No: Pulsatile Mass, Tenderness ...Rectal Exam: Yes: Deferred Renal/: Yes: Anuria Breast(s): Yes: WNL Musculoskeletal: Yes: WNL Extremities: No: Amputation, Calf Tenderness, Cyanosis Edema: No Peripheral Pulses WNL: No Integumentary: No: Petechiae Neurological: Yes: Alert, Oriented, Confusion (occ). No: Aphasia, Asterixis, Ataxia, Dysarthria, Facial Droop ...Motor Strength: WNL Psychiatric: Yes: WNL Labs: CBC, BMP 10/22/16 12:58 10/22/16 12:58 Imaging - Results Chest X-ray: Report Reviewed EKG: Image Reviewed Problem List - Problems (1) CAD (coronary artery disease) Assessment/Plan: Cardiology follow up. Troponin I EKG f/u Telemetry BAB, Nitrates, ASA Code(s): I25.10 - ATHSCL HEART DISEASE OF [place] CORONARY ARTERY W/O ANG PCTRS Qualifiers: Coronary Disease-Associated Artery/Lesion type: unspecified vessel or lesion type [place] vs. transplanted heart: [place] heart Associated angina: with stable angina Qualified Code(s): I25.118 - Atherosclerotic heart disease of [place] coronary artery with other forms of angina pectoris (2) Chronic kidney disease (CKD) Assessment/Plan: Follow up with nephrology HD in AM. Will give Kayexalate 30 gms x1 for K5.4 Code(s): N18.9 - CHRONIC KIDNEY DISEASE, UNSPECIFIED Qualifiers: Chronic kidney disease stage: unspecified stage Qualified Code(s): N18.9 - Chronic kidney disease, unspecified (3) Elevated troponin Assessment/Plan: ALANA Demand ischemia, ESRD, Angina Code(s): R74.8 - ABNORMAL LEVELS OF OTHER SERUM ENZYMES (4) Fever Assessment/Plan: R/o sepsis vs B-symptoms from his Castelman"s disease. Blood Cx-P Vanco IV ID f/u Code(s): R50.9 - FEVER, UNSPECIFIED Qualifiers: Fever type: due to other condition Qualified Code(s): R50.81 - Fever presenting with conditions classified elsewhere (5) Adenopathy, cervical Assessment/Plan: Castelman disease. Oncology consult Code(s): R59.0 - LOCALIZED ENLARGED LYMPH NODES
[2016-10-22] MEDS ORDERED: ACETAMINOPHEN 325 MG TABLET (FP) PO SCH (14:45)
[2016-10-22] MEDS ORDERED: SODIUM POLYSTYRENE SULFONATE 15 GM/60 ML BOTTLE PO ONE (14:56)
[2016-10-22 15:17] LABS: ANISOCYTOSIS 2+; PLATELET ESTIMATE DECREASED (NORMAL); TOTAL CELLS COUNTED 100
[2016-10-22 15:18] LABS: BURR CELLS F; MACROCYTOSIS 1+; OVALOCYTE 1+
[2016-10-22 15:19] LABS: PLATELET COUNT 26 K/MM3 (134-434)
--- NOTE | 2016-10-22 16:21 | PDOC ---
ED Treatment Course - LABORATORY CBC & Chemistry Diagram: 10/22/16 12:58 10/22/16 12:58 - ADDITIONAL ORDERS Additional order review: Laboratory Results 10/22/16 10/22/16 10/22/16 13:20 13:15 13:15 INR 1.50 H PTT (Actin FS) 38.0 H VBG pH 7.29 L POC VBG pCO2 48.9 POC VBG pO2 30.4 D Mixed VBG HCO3 22.8 Sodium Potassium Chloride Carbon Dioxide Anion Gap BUN Creatinine Creat Clearance w eGFR Random Glucose Lactic Acid 4.4 H* Calcium Total Bilirubin AST ALT Alkaline Phosphatase Creatine Kinase Troponin I B-Natriuretic Peptide Total Protein Albumin Blood Type Antibody Screen 10/22/16 10/22/16 12:58 12:58 INR PTT (Actin FS) VBG pH POC VBG pCO2 POC VBG pO2 Mixed VBG HCO3 Sodium 136 Potassium 5.4 H D Chloride 98 Carbon Dioxide 22 D Anion Gap 16 BUN 83 H D Creatinine 6.1 H Creat Clearance w eGFR 8.83 Random Glucose 83 Lactic Acid Calcium 7.3 L Total Bilirubin 0.9 AST 45 H D ALT 51 D Alkaline Phosphatase 109 D Creatine Kinase 24 L Troponin I 0.95 H* D B-Natriuretic Peptide 921691.15 H Total Protein 6.0 L D Albumin 2.3 L Blood Type A POSITIVE Antibody Screen Negative 10/22/16 12:58 RBC 3.60 L MCV 103.3 H MCHC 33.1 RDW 21.2 H D MPV 9.7 D Neutrophils % Y Lymphocytes % Y - RADIOLOGY Radiology Studies Ordered: Category Date Time Status CHEST X-RAY PORTABLE* [RAD] Stat Radiology 10/22/16 12:51 Completed - Medications Given in the ED: ED Medications Discontinued Medications Generic Name Dose Route Start Last Admin Trade Name Freq PRN Reason Stop Dose Admin Acetaminophen 1,000 mg 10/22/16 13:15 10/22/16 13:23 Ofirmev Injection - IVPB 10/22/16 13:16 1,000 mg ONCE ONE Administration Aspirin 162 mg 10/22/16 13:49 10/22/16 13:56 Asa - PO 10/22/16 13:50 162 mg ONCE ONE Administration Sodium Chloride 250 mls @ 500 mls/hr 10/22/16 13:22 10/22/16 13:23 Normal Saline - IV 10/22/16 13:51 500 mls/hr ASDIR STA Administration Vancomycin HCl 1,250 mg/ 250 mls @ 250 mls/hr 10/22/16 14:00 10/22/16 14:04 Dextrose IVPB 10/22/16 14:59 Not Given ONCE ONE Protocol Vancomycin HCl 1,000 mg/ 250 mls @ 250 mls/hr 10/22/16 14:12 10/22/16 14:22 Dextrose IVPB 10/22/16 15:11 250 mls/hr ONCE ONE Administration Protocol Sodium Chloride 500 mls @ 500 mls/hr 10/22/16 14:17 10/22/16 14:22 Normal Saline - IV 10/22/16 15:16 500 mls/hr ASDIR STA Administration Sodium Polystyrene Sulfonate 30 gm 10/22/16 14:56 10/22/16 15:35 Kayexalate - PO 10/22/16 14:57 30 gm ONCE ONE Administration Medical Decision Making - Medical Decision Making 10/22/16 16:57 pt upgraded to ICU due to persistent hypotension will continue to reassess the pt pt s/p steroids and fluids will reassess need for pressors case dw dr. jaen baptiste and dr. osorio agreed with admission for further management *DC/Admit/Observation/Transfer Diagnosis at time of Disposition: Elevated troponin, Thrombocythemia Fever Qualifiers: Fever type: due to other condition Qualified Code(s): R50.81 - Fever presenting with conditions classified elsewhere CAD (coronary artery disease) Qualifiers: Coronary Disease-Associated Artery/Lesion type: unspecified vessel or lesion type [place] vs. transplanted heart: [place] heart Associated angina: with stable angina Qualified Code(s): I25.118 - Atherosclerotic heart disease of [place] coronary artery with other forms of angina pectoris Chronic kidney disease (CKD) Qualifiers: Chronic kidney disease stage: unspecified stage Qualified Code(s): N18.9 - Chronic kidney disease, unspecified Sepsis Qualifiers: Sepsis type: sepsis due to unspecified organism Qualified Code(s): A41.9 - Sepsis, unspecified organism - Discharge Dispostion Condition at time of disposition: Critical Admit: Yes
[2016-10-22] MEDS ORDERED: HYDROCORTISONE SOD SUCCINATE 100 MG/2 ML VIAL IVPUSH ONE (16:30)
[2016-10-22] MEDS ORDERED: HYDROCORTISONE SOD SUCCINATE 2 ML ONE (16:35)
[2016-10-22] MEDS ORDERED: CALCIUM GLUCONATE 10% - 1,000 MG/10 ML VIAL IVPUSH ONE (17:02)
[2016-10-22] MEDS ORDERED: CALCIUM GLUCONATE 10% - 1,000 MG/10 ML VIAL ONE (17:05)
[2016-10-22] MEDS ORDERED: DOPAMINE 400 MG/D5W - 250 ML IVPB SCH (17:15)
[2016-10-22] MEDS ORDERED: DOPAMINE 400 MG/D5W - 250 ML IVPB ONE (17:34)
[2016-10-22 18:01] LABS: ALBUMIN 1.9 g/dl (3.4-5.0); ANION GAP 15 (8-16); BILIRUBIN,TOTAL 0.8 mg/dL (0.2-1.0); CALCIUM 7.2 mg/dL (8.5-10.1); CO2 21 mmol/L (21-32); CREATININE 5.9 mg/dL (0.7-1.3); GLUCOSE,RANDOM 88 mg/dL (74-106); SGOT/AST 44 U/L (15-37); SGPT/ALT 44 U/L (12-78)
[2016-10-22 18:02] LABS: ALK PHOS 88 U/L (45-117)
[2016-10-22 18:29] LABS: CPK 20 IU/L (39-308)
[2016-10-22 18:30] LABS: TROPONIN I 0.81 ng/ml (0.00-0.05)
[2016-10-22] MEDS ORDERED: morphine CARPU-JECT 2 MG/1 ML DISP.SYRIN ONE (20:45)
[2016-10-22] MEDS ORDERED: NOREPINEPHRINE BITARTRATE 4 MG/4 ML ML IV ONE (20:57)
[2016-10-22] MEDS ORDERED: morphine CARPU-JECT 4 MG/1 ML DISP.SYRIN ONE (21:20)
[2016-10-22] MEDS ORDERED: CEFEPIME HCL 1 GM VIAL (RESTRICTED TO ID) IVPB ONE (21:37)
[2016-10-22] MEDS ORDERED: morphine CARPU-JECT 2 MG/1 ML DISP.SYRIN IVPUSH PRN ×2 (21:39)
--- NOTE | 2016-10-22 21:40 | CON.NEP ---
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 fevers and lymphoproliferative disease) also hypotension, high suspicion for sepsis has not been able to get full dialysis treatments he had one hd tx yesterday and the day before today he had incomplete treatment for fluid removal he denies sob at the time of exam - History Source History Provided By: Patient, Family Member Limitations to Obtaining History: Poor Historian - 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: Alzheimer's, CVA, Dementia, Migraine, Multiple Sclerosis, Peripheral Neuropathy, Parkinson's, Seizure, Syncope, TIA, Vertigo, Other Cardio/Vascular: Yes: Aortic Insufficiency, CHF, HTN, MD, Mitral Insufficiency, Murmur, Pulmonary Hypertension Pulmonary: Yes: Other (Pulm HTN) Gastrointestinal: Yes: Diverticulosis, GI Bleed, Peptic Ulcer Disease, Other ( colon polyps) Renal/: Yes: Renal Failure, BPH, Cancer (Bladder), Renal Calculi (uric acid stones) Psych: Yes: Anxiety Musculoskeletal: No: Bursitis, Chronic low back pain, Hemiparesis, Hemiplegia, Osteoarthritis, Paraplegia, Other Rheumatology: Yes: Gout, Other (Vasculitis-LCCV LE) Endocrine: No: Andres's Disease, [place]'s Disease, Diabetes Insipidus, Diabetes Mellitus, Hyperparathyroidism, Hyperthyroidism, Hypothyroidism, Osteopenia, SIADH, Other Dermatology: Yes: Psoriasis - Past Surgical History Past Surgical History: Yes: AV Fistula/Graft, CABG, Cataract Removal (left eye) , Cholecystectomy (open), Stent - Alcohol/Substance Use Hx Alcohol Use: No - Smoking History Smoking history: Never smoked Have you smoked in the past 12 months: No If you are a former smoker, when did you quit?: 2001 - Social History Usual Living Arrangement: With Spouse History of Recent Travel: No Home Medications - Allergies Allergies/Adverse Reactions: Allergies Allergy/AdvReac Type Severity Reaction Status Date / Time Penicillins Allergy Rash Verified 09/14/16 07:36 shellfish derived Allergy Rash Verified 09/14/16 07:36 Sulfa (Sulfonamide Allergy Difficulty Verified 09/14/16 07:36 Antibiotics) Breathing - Home Medications Home Medications: Ambulatory Orders Atorvastatin Ca [Lipitor] 20 mg PO HS 07/10/13 Furosemide [Lasix -] 20 mg PO BID 07/10/13 Pantoprazole Sodium [Protonix] 40 mg PO DAILY #30 tablet. 08/01/15 Allopurinol [Zyloprim -] 100 mg PO DAILY 08/17/15 Aspirin [ASA -] 81 mg PO DAILY 04/16/16 Bisacodyl [Dulcolax] 1 tablet PO PRN PRN 04/16/16 Multivit-Min/FA/Lycopen/Lutein [Centrum Silver Tablet] 1 each PO DAILY 04/16/16 Carvedilol [Coreg -] 6.25 mg PO BID 09/13/16 Family Disease History - Family Disease History Family Disease History: CA: Brother (lung), Other: Father (cva), Mother ( natural causes), Sister (parkinson's) Review of Systems - Review of Systems Constitutional: reports: Fever, Loss of Appetite, Malaise, Unintentional Wgt. Loss, Weakness Eyes: reports: No Symptoms HENT: reports: No Symptoms Neck: reports: No Symptoms Cardiovascular: reports: No Symptoms Respiratory: reports: No Symptoms Gastrointestinal: reports: No Symptoms Genitourinary: reports: No Symptoms Breasts: reports: No Symptoms Reported Musculoskeletal: reports: No Symptoms Integumentary: reports: No Symptoms Neurological: reports: No Symptoms, Weakness (in the lower extremities) Endocrine: reports: No Symptoms Nephrology Consult - Height Height: 5 ft 4 in - Weight Weight: 159 lb - BMI Body Mass Index (BMI): 27.3 - Lab Results CBC,BMP: CBC, BMP 10/22/16 16:53 Anion Gap: Anion Gap Anion Gap 15 (8-16) 10/22/16 16:53 - Physical Examination Vital Signs: Vital Signs Temperature 98.8 F 10/22/16 19:54 Pulse Rate 102 H 10/22/16 19:54 Respiratory Rate 19 10/22/16 19:54 Blood Pressure 97/39 10/22/16 19:54 O2 Sat by Pulse Oximetry (%) 99 10/22/16 19:54 Constitutional: Yes: Obese Eyes: Yes: WNL HENT: Yes: WNL Neck: Yes: WNL Cardiovascular: Yes: WNL Respiratory: Yes: WNL Gastrointestinal: Yes: WNL Renal/: Yes: WNL Access for Hemodialysis: AV Fistula Musculoskeletal: Yes: WNL Extremities: Yes: WNL Integumentary: Yes: WNL Neurological: Yes: WNL Psychiatric: Yes: WNL Problem List - Problems (1) Chronic kidney disease (CKD) Code(s): N18.9 - CHRONIC KIDNEY DISEASE, UNSPECIFIED Qualifiers: Chronic kidney disease stage: on chronic dialysis Qualified Code(s) : N18.6 - End stage renal disease; Z99.2 - Dependence on renal dialysis (2) Fever Code(s): R50.9 - FEVER, UNSPECIFIED Qualifiers: Fever type: due to other condition Qualified Code(s): R50.9 - Fever , unspecified Assessment/Plan ESRD ON HD NO EVIDENCE OF FLUID OVERLOAD Her Dry weight is being adjusted from 71 to 69 lbs pre HD weight was 71 yesterday FEVER CASTLEMAN DISEASE VS SEPSIS PLAN- HD IF STABLE OR IF SIGNS OF FLUID OVERLOAD
[2016-10-22] MEDS ORDERED: NOREPINEPHRINE BITARTRATE 8,000 MCG in DEXTROSE 5%-WATER - 492 ML IV SCH (21:45)
[2016-10-22] MEDS ORDERED: CEFEPIME 1 GM in DEXTROSE 5%-WATER 100 ML IVPB ONE (21:45)
--- NOTE | 2016-10-22 21:51 | PROC ---
Central Line Insertion Indication: CVP Monitoring, Poor Venous Access, Sepsis, Vasopressor Risks and Benefits Explained: Yes Consent on Chart: Yes Central Line: Triple Lumen Catheter Anesthesia: 1% Lidocaine Sterile Technique: Yes Ultrasound Guided Assistance: Yes Position: Right Internal Jugular Post Insertion: Yes: Bilateral Breath Sounds, Bilateral Chest Expansion, Chest X-Ray Ordered Sterile Dressing Applied: Yes
[2016-10-22] MEDS: VASOPRESSIN 50 UNITS in SODIUM CHLORIDE 97.5 ML IVPB SCH (21:57)
[2016-10-22] MEDS ORDERED: ATORVASTATIN CA 20 MG TABLET (FP) PO SCH (22:00)
--- NOTE | 2016-10-22 22:03 | CONSULT ---
Consult Consult Specialty:: PULM/CRITICAL CARE Referred by:: Dr Frazier Reason for Consultation:: Septic Shock, NSTEMI - History of Present Illness Chief Complaint: chest pain History of Present Illness: Very briefly, a 86 y/o man with significant CAD s/p multiple revascularization procedures, has frequent angina - sometimes unstable. He has dialysis dependant ESRD, a new dx of Castelman's Disease and h/o LE vasculitis with recent course of steroids (currently on Pred 30mg daily). He c/o intermittent fevers/chills over the last several week, especially with HD. HD sessions were frequently cut short due to hypotension. He presented to the ED today with fever of 102, hypotension and unstable angina. In the ED he was cultured, given a dose of Vancomycin, 2L total of IVF and eventually started on Dopamine. Labs were signifiacant for small NSTEMI, hyperkalemia and elevated Lactate. Repeat Troponin and Lactate were both lower with fluid, however, he continued to require pressors and was admitted to the ICU. On arrival to the ICU his BP was in the 60s systolic, he was tachy to the 110s with crushing chest pain. A TLC was urgently placed, he was started on Levo/Vaso , Dopa was stopped and he was given several doses of Morphine. BP improved with Levo/Vaso, HR improved to the 80s off Dopamine and his chest pain resolved. A long discussion was held with his family, they wish to make him DNR with all aggressive treatments short of CPR. 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's, CVA, Dementia, Migraine, Multiple Sclerosis, Peripheral Neuropathy, Parkinson's, Seizure, Syncope, TIA, Vertigo, Other Cardio/Vascular: Yes: Aortic Insufficiency, CHF, HTN, [place], Mitral Insufficiency, Murmur, Pulmonary Hypertension Pulmonary: Yes: Other (Pulm HTN) Gastrointestinal: Yes: Diverticulosis, GI Bleed, Peptic Ulcer Disease, Other ( colon polyps) Renal/: Yes: Renal Failure, BPH, Cancer (Bladder), Renal Calculi (uric acid stones) Psych: Yes: Anxiety Musculoskeletal: No: Bursitis, Chronic low back pain, Hemiparesis, Hemiplegia, Osteoarthritis, Paraplegia, Other Rheumatology: Yes: Gout, Other (Vasculitis-LCCV LE) Endocrine: No: Andres's Disease, Ngoc's Disease, Diabetes Insipidus, Diabetes Mellitus, Hyperparathyroidism, Hyperthyroidism, Hypothyroidism, Osteopenia, SIADH, Other Dermatology: Yes: Psoriasis - Past Surgical History Past Surgical History: Yes: AV Fistula/Graft, CABG, Cataract Removal (left eye) , Cholecystectomy (open), Stent - Alcohol/Substance Use Hx Alcohol Use: No - Smoking History Smoking history: Never smoked Have you smoked in the past 12 months: No If you are a former smoker, when did you quit?: 2001 - Social History Usual Living Arrangement: With Spouse History of Recent Travel: No Home Medications - Allergies Allergies/Adverse Reactions: Allergies Allergy/AdvReac Type Severity Reaction Status Date / Time Penicillins Allergy Rash Verified 09/14/16 07:36 shellfish derived Allergy Rash Verified 09/14/16 07:36 Sulfa (Sulfonamide Allergy Difficulty Verified 09/14/16 07:36 Antibiotics) Breathing - Home Medications Home Medications: Ambulatory Orders Atorvastatin Ca [Lipitor] 20 mg PO HS 07/10/13 Furosemide [Lasix -] 20 mg PO BID 07/10/13 Pantoprazole Sodium [Protonix] 40 mg PO DAILY #30 tablet. 08/01/15 Allopurinol [Zyloprim -] 100 mg PO DAILY 08/17/15 Aspirin [ASA -] 81 mg PO DAILY 04/16/16 Bisacodyl [Dulcolax] 1 tablet PO PRN PRN 04/16/16 Multivit-Min/FA/Lycopen/Lutein [Centrum Silver Tablet] 1 each PO DAILY 04/16/16 Carvedilol [Coreg -] 6.25 mg PO BID 09/13/16 Family Disease History - Family Disease History Family History: Unremarkable Family Disease History: [place]: Brother (lung), Other: Father (cva), Mother ( natural causes), Sister (parkinson's) Review of Systems - Review of Systems Constitutional: reports: Chills, Diaphoresis, Fever, Malaise, Weakness Eyes: reports: No Symptoms HENT: reports: No Symptoms Neck: reports: No Symptoms Cardiovascular: reports: Chest Pain Respiratory: reports: SOB on Exertion Genitourinary: reports: No Symptoms Musculoskeletal: reports: Joint Pain Neurological: reports: No Symptoms Endocrine: reports: No Symptoms Hematology/Lymphatic: reports: No Symptoms Psychiatric: reports: No Symptoms Physical Exam Vital Signs: Vital Signs Temperature 98.8 F 10/22/16 19:54 Pulse Rate 102 H 10/22/16 19:54 Respiratory Rate 19 10/22/16 19:54 Blood Pressure 97/39 10/22/16 19:54 O2 Sat by Pulse Oximetry (%) 99 10/22/16 19:54 Constitutional: Yes: Moderate Distress, Obese Eyes: Yes: WNL HENT: Yes: WNL Neck: Yes: WNL Cardiovascular: Yes: Tachycardia, S1, S2 Respiratory: Yes: Diminished Gastrointestinal: Yes: Soft, Abdomen, Obese Musculoskeletal: Yes: WNL Extremities: Yes: WNL Edema: No Labs: CBC, BMP 10/22/16 16:53 Imaging - Results Chest X-ray: Report Reviewed, Image Reviewed Problem List - Problems (1) CAD (coronary artery disease) Code(s): I25.10 - ATHSCL HEART DISEASE OF [place] CORONARY ARTERY W/O ANG PCTRS Qualifiers: Coronary Disease-Associated Artery/Lesion type: unspecified vessel or lesion type [place] vs. transplanted heart: [place] heart Associated angina: with stable angina Qualified Code(s): I25.118 - Atherosclerotic heart disease of [place] coronary artery with other forms of angina pectoris (2) ESRD (end stage renal disease) Code(s): N18.6 - END STAGE RENAL DISEASE (3) Septic shock Code(s): A41.9 - SEPSIS, UNSPECIFIED ORGANISM R65.21 - SEVERE SEPSIS WITH SEPTIC SHOCK (4) Unstable angina Code(s): I20.0 - UNSTABLE ANGINA (5) NSTEMI (non-ST elevated myocardial infarction) Code(s): I21.4 - NON-ST ELEVATION (NSTEMI) MYOCARDIAL INFARCTION Assessment/Plan CAD Unstable Angina NSTEMI ESRD on HD Septic shock -TLC placed urgently -Levo/Vaso for MAP >60 -CVP is 11 - no IVF -Stress steroids - Hydrocort 100q8 -Abx: Vanc/Cefepime pending cultures -Hold antihypertensives -ASA, Statin -PRN Morphine for pain -Cardiac enzymes -HD per renal -Venodynes DNR Thank you for this interesting consult Critically Ill - CCT 65min not including procedures Kenneth Faustin Pulm/Critical Care [employer] [id number]
[2016-10-22] MEDS ORDERED: ATORVASTATIN CA 80 MG TABLET (FP) PO SCH ×2 (22:12→23:30)
[2016-10-22] MEDS ORDERED: ACETAMINOPHEN 325 MG TABLET (FP) PO PRN (22:16)
[2016-10-22 23:03] VITALS: BMI 27.8
[2016-10-23] MEDS ORDERED: PROPOFOL 100 ML ONE (00:31)
[2016-10-23] MEDS ORDERED: FENTANYL INJECTION 500 MCG in DEXTROSE 5%-WATER - 90 ML IJ SCH (01:00)
[2016-10-23] MEDS ORDERED: PROPOFOL 200 MG/20 ML VIAL IVPUSH ONE (01:11)
[2016-10-23] MEDS ORDERED: ROCURONIUM BROMIDE 50 MG/5 ML VIAL IV ONE (01:11)
--- NOTE | 2016-10-23 01:14 | PROC ---
Intubation - Intubation Reason for Intubation: Respiratory Failure, Ventilatory Failure Time of Intubation: 01:11 Intubation Method: orotracheal Blade used: Mac Tube Size (cm): 8.0 Tube position @ lip (cm): 24 Tube position confirmed by: Direct visualization, CO2 detector, Chest x-ray, Breath sounds Post Intubation Xray: Yes Remarks: Pre-oxygenated with 100% Oxygen. Smooth induction with Fentanyl 250mcg, Propofol 50mg, Rocurronium 50mg, DLx1 w/mac3 g1v, 8.0 ETT to 24cm at teeth. Direct visualization, +EtCO2, = breath sounds. Connected to ventilator circuit and sedation ordered.
[2016-10-23] MEDS ORDERED: ACETAMINOPHEN 1000 MG/100 ML VIAL (NON FORMULARY) IVPB ONE (01:22)
[2016-10-23] MEDS ORDERED: NOREPINEPHRINE BITARTRATE 4 MG/4 ML ML IV ONE ×2 (01:30→09:08)
[2016-10-23] MEDS ORDERED: PROPOFOL 100 ML IVPUSH SCH (01:30)
[2016-10-23] MEDS ORDERED: SODIUM CHLORIDE 0.45% IV SCH ×2 (01:30)
[2016-10-23] MEDS ORDERED: NOREPINEPHRINE BITARTRATE IV SCH ×3 (01:30→02:01)
[2016-10-23 01:32] LABS: ARTERIAL BLD GAS O2 SATURATION 98.5 % (90-98.9); ARTERIAL BLOOD GAS BASE EXCESS -8.9 meq/l (-2-2); ARTERIAL BLOOD GAS pH 7.33 (7.35-7.45)
[2016-10-23 01:33] LABS: ALLENS TEST POSITIVE; ART PUNCT SITE RIGHT BRACHIAL; LPM/O2% 100%; MECH. VENT. YES; PT. ON O2? YES; TYPE OF O2 MECH VENT; VENT RATE 28; VT/PRESS 450
[2016-10-23 01:34] LABS: ARTERIAL BLOOD GAS HCO3 15.6 meq/L (22-26)
[2016-10-23] MEDS ORDERED: SODIUM CHLORIDE IV SCH (02:01)
[2016-10-23] MEDS: VASOPRESSIN 50 UNITS in SODIUM CHLORIDE 97.5 ML IVPB SCH (06:41)
[2016-10-23 06:44] LABS: BASOPHIL 0.2 % (0-2.0); EOSINOPHIL 0.7 % (0-4.5); MCH 34.1 pg (25.7-33.7); MCHC 32.9 g/dl (32.0-35.9); MEAN CELL VOLUME 103.5 fl (80-96); MEAN PLT VOLUME 10.1 fl (7.5-11.1); NEUTROPHILS 89.7 % (42.8-82.8); RDW 21.3 % (11.9-15.9); WHITE BLOOD COUNT 8.4 K/mm3 (4.0-10.0)
[2016-10-23 06:58] LABS: PLATELET COUNT 21 K/MM3 (134-434)
--- NOTE | 2016-10-23 07:37 | PN ---
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 Was to have seen oncology but not yet. Apparently developed a LE "vasculitis" treated by PMD with steroids Prednisone 40 mg which he has been on for several weeks Had cervical lymph node biopsy for the diagnosis end of August Dr Westbrook. Yesterday hypotensive with chest pain on dialysis. Has been febrile for weeks ? Castleman related. Had to be intubated now and placed on pressor support - Current Medication List Current Medications: Active Medications Acetaminophen (Tylenol -) 650 mg PO Q6H PRN PRN Reason: FEVER OR PAIN Last Admin: 10/22/16 23:27 Dose: 650 mg Allopurinol (Zyloprim -) 100 mg PO DAILY CHANTEL Aspirin (Asa -) 81 mg PO DAILY CHANTEL Atorvastatin Calcium (Lipitor -) 80 mg PO HS CHANTEL Last Admin: 10/22/16 23:31 Dose: 80 mg Bisacodyl (Dulcolax -) 5 mg PO PRN PRN PRN Reason: CONSTIPATION Chlorhexidine Gluconate (Hibiclens For Decolonization -) 1 applic TP HS CHANTEL Vasopressin 50 units/ Sodium (Chloride) 100 mls @ 4 mls/hr IVPB ASDIR CHANTEL; 2 UNITS/HR PRN Reason: Protocol Last Admin: 10/23/16 06:41 Dose: 8 mls/hr Fentanyl 500 mcg/ Dextrose 100 mls @ 10 mls/hr IJ TITR CHANTEL PRN Reason: 50 MCG/HR Last Titration: 10/23/16 01:44 Dose: 50 mcg/hr Pantoprazole Sodium (Protonix 40mg Ivpb (Pre-Docked)) 100 mls @ 200 mls/hr IVPB DAILY CHANTEL Propofol (Diprivan -) 100 mls @ 2.208 mls/hr IVPUSH TITR CHANTEL; 5 MCG/KG/MIN PRN Reason: Protocol Last Titration: 10/23/16 06:34 Dose: 15 mcg/kg/min Norepinephrine Bitartrate 16, (000 mcg/ Sodium Chloride) 266 mls @ 4.98 mls/hr IV TITR CHANTEL; 5 MCG/MIN PRN Reason: Protocol Last Admin: 10/23/16 02:07 Dose: 24.93 mls/hr Mupirocin (Bactroban Ointment (For Decolonization) -) 1 applic NS BID CHANTEL Stop: 10/28/16 09:59 - Objective Vital Signs: Vital Signs Temperature 99.5 F 10/23/16 06:00 Pulse Rate 62 10/23/16 06:00 Respiratory Rate 28 H 10/23/16 07:00 Blood Pressure 110/46 10/23/16 06:00 O2 Sat by Pulse Oximetry (%) 96 10/23/16 03:56 Constitutional: Yes: Well Nourished, Mild Distress, Other (Agitated) Cardiovascular: Yes: S1, S2 Respiratory: Yes: WNL, Regular, CTA Bilaterally Gastrointestinal: Yes: WNL, Normal Bowel Sounds, Soft. No: Tenderness Extremities: Yes: Other (purplish macular lesions plantar LE) Labs: CBC, BMP 10/23/16 06:10 INR, PTT INR 1.50 (0.82-1.09) H 10/22/16 13:15 Problem List - Problems (1) CAD (coronary artery disease) Code(s): I25.10 - ATHSCL HEART DISEASE OF [place] CORONARY ARTERY W/O ANG PCTRS Qualifiers: Coronary Disease-Associated Artery/Lesion type: unspecified vessel or lesion type [place] vs. transplanted heart: [place] heart Associated angina: with stable angina Qualified Code(s): I25.118 - Atherosclerotic heart disease of [place] coronary artery with other forms of angina pectoris (2) Chronic kidney disease (CKD) Code(s): N18.9 - CHRONIC KIDNEY DISEASE, UNSPECIFIED Qualifiers: Chronic kidney disease stage: on chronic dialysis Qualified Code(s) : N18.6 - End stage renal disease; Z99.2 - Dependence on renal dialysis (3) NSTEMI (non-ST elevated myocardial infarction) Code(s): I21.4 - NON-ST ELEVATION (NSTEMI) MYOCARDIAL INFARCTION (4) Sepsis Code(s): A41.9 - SEPSIS, UNSPECIFIED ORGANISM Qualifiers: Sepsis type: sepsis due to unspecified organism Qualified Code(s): A41.9 - Sepsis, unspecified organism (5) Thrombocythemia Code(s): D47.3 - ESSENTIAL (HEMORRHAGIC) THROMBOCYTHEMIA (6) 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 Code(s): D47.Z2 - CASTLEMAN DISEASE B10.89 - OTHER HUMAN HERPESVIRUS INFECTION Assessment/Plan Microbiology Laboratory Tests 10/22/16 10/22/16 10/22/16 12:58 16:53 16:53 WBC 9.3 D Hgb 12.3 D MCV 103.3 H Plt Count 26 L* D BUN 87 H Creatinine 5.9 H Lactic Acid 2.7 H* AST 44 H ALT 44 Alkaline Phosphatase 88 Creatine Kinase 20 L Troponin I 0.81 H* Assessment Sepsis syndrome source unclear now though as dialysis patient high risk for Staph/ GNB Coronary ischemia 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
[2016-10-23] MEDS ORDERED: VANCOMYCIN 1,000 MG in DEXTROSE 5%-WATER - 250 ML IVPB ONE (07:51)
[2016-10-23 08:06] LABS: ALBUMIN 1.9 g/dl (3.4-5.0); ALK PHOS 117 U/L (45-117); ANION GAP 23 (8-16); BILIRUBIN,DIRECT 0.9 mg/dL (0.0-0.2); BILIRUBIN,TOTAL 1.3 mg/dL (0.2-1.0); CO2 14 mmol/L (21-32); CREATININE 6.9 mg/dL (0.7-1.3); GLUCOSE,RANDOM 53 mg/dL (74-106); MAGNESIUM 1.7 mg/dL (1.8-2.4); SGOT/AST 244 U/L (15-37); SGPT/ALT 153 U/L (12-78); TOT PROT 5.3 g/dl (6.4-8.2)
--- NOTE | 2016-10-23 08:21 | PN ---
Progress Note, Physician Chief Complaint: Brett is admitted to ICU, intubated on CMP-60 % FIO2, 10 mmHg PEEP, receiving Norepinephrine and Vasopressin Sedated with Propofol. and daughter at bedeside, questions answered, Spoke to Dr. Chavez/ Meropenem given. History of Present Illness: Castelman's disease. 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 ?POEMS History of PUD and GI bleed, 2016 hospitalized.. ESRD with AVF left arm M-W-F Gout. ASHD. CABG. s/p [place]. Coronary Stent. Stable Angina. CHF-diastolic. Elevated PAP. Psoriasis. HTN.--Hypotensive while on HD. - Current Medication List Current Medications: Active Medications Acetaminophen (Tylenol -) 650 mg PO Q6H PRN PRN Reason: FEVER OR PAIN Last Admin: 10/22/16 23:27 Dose: 650 mg Allopurinol (Zyloprim -) 100 mg PO DAILY CHANTEL Aspirin (Asa -) 81 mg PO DAILY CHANTEL Atorvastatin Calcium (Lipitor -) 80 mg PO HS CHANTEL Last Admin: 10/22/16 23:31 Dose: 80 mg Bisacodyl (Dulcolax -) 5 mg PO PRN PRN PRN Reason: CONSTIPATION Chlorhexidine Gluconate (Hibiclens For Decolonization -) 1 applic TP HS CHANTEL Vasopressin 50 units/ Sodium (Chloride) 100 mls @ 4 mls/hr IVPB ASDIR CHANTEL; 2 UNITS/HR PRN Reason: Protocol Last Admin: 10/23/16 06:41 Dose: 8 mls/hr Fentanyl 500 mcg/ Dextrose 100 mls @ 10 mls/hr IJ TITR CHANTEL PRN Reason: 50 MCG/HR Last Titration: 10/23/16 01:44 Dose: 50 mcg/hr Pantoprazole Sodium (Protonix 40mg Ivpb (Pre-Docked)) 100 mls @ 200 mls/hr IVPB DAILY CHANTEL Propofol (Diprivan -) 100 mls @ 2.208 mls/hr IVPUSH TITR CHANTEL; 5 MCG/KG/MIN PRN Reason: Protocol Last Titration: 10/23/16 06:34 Dose: 15 mcg/kg/min Norepinephrine Bitartrate 16, (000 mcg/ Sodium Chloride) 266 mls @ 4.98 mls/hr IV TITR CHANTEL; 5 MCG/MIN PRN Reason: Protocol Last Admin: 10/23/16 02:07 Dose: 24.93 mls/hr Vancomycin HCl 1,000 mg/ (Dextrose) 250 mls @ 250 mls/hr IVPB ONCE ONE PRN Reason: Protocol Stop: 10/23/16 08:50 Meropenem (Merrem (Restricted To Id) -) 250 mg IVPB BID [facility] Mupirocin (Bactroban Ointment (For Decolonization) -) 1 applic NS BID [facility] Stop: 10/28/16 09:59 - Objective Vital Signs: Vital Signs Temperature 99.5 F 10/23/16 06:00 Pulse Rate 62 10/23/16 06:00 Respiratory Rate 28 H 10/23/16 07:00 Blood Pressure 110/46 10/23/16 06:00 O2 Sat by Pulse Oximetry (%) 96 10/23/16 03:56 Constitutional: Yes: [place], Pallor, Other (sedated) Eyes: Yes: PERRL. No: Sclera Icterus HENT: Yes: Atraumatic, Normocephalic Neck: Yes: Supple, Trachea Midline. No: Rigid Cardiovascular: Yes: Pulse Irregular. No: Bradycardia, Tachycardia, JVD Gastrointestinal: Yes: Normal Bowel Sounds, Soft, Ascites, Distention, Tenderness, Rebound Genitourinary: Yes: Other Breast(s): Yes: WNL Extremities: No: Calf Tenderness, Cold Labs: CBC, BMP 10/23/16 06:10 INR, PTT INR 1.50 (0.82-1.09) H 10/22/16 13:15 Problem List - Problems (1) CAD (coronary artery disease) Assessment/Plan: Cardiology follow up. Troponin I EKG f/u Telemetry BAB, Nitrates, ASA Code(s): I25.10 - ATHSCL HEART DISEASE OF [place] CORONARY ARTERY W/O ANG PCTRS Qualifiers: Coronary Disease-Associated Artery/Lesion type: unspecified vessel or lesion type [place] vs. transplanted heart: [place] heart Associated angina: with stable angina Qualified Code(s): I25.118 - Atherosclerotic heart disease of [place] coronary artery with other forms of angina pectoris (2) Chronic kidney disease (CKD) Assessment/Plan: Follow up with nephrology HD in AM. Will give Kayexalate 30 gms x1 for K5.4 Code(s): N18.9 - CHRONIC KIDNEY DISEASE, UNSPECIFIED Qualifiers: Chronic kidney disease stage: on chronic dialysis Qualified Code(s) : N18.6 - End stage renal disease; Z99.2 - Dependence on renal dialysis (3) Elevated troponin Assessment/Plan: ALANA Demand ischemia, ESRD, Angina Code(s): R74.8 - ABNORMAL LEVELS OF OTHER SERUM ENZYMES (4) Fever Assessment/Plan: R/o sepsis-GNB GPC vs B-symptoms from his Castelman"s disease. Blood Cx-P Vanco IV ID f/u Code(s): R50.9 - FEVER, UNSPECIFIED Qualifiers: Fever type: due to other condition Qualified Code(s): R50.81 - Fever presenting with conditions classified elsewhere (5) Septic shock Assessment/Plan: Iv pressors Fluid management. Code(s): A41.9 - SEPSIS, UNSPECIFIED ORGANISM R65.21 - SEVERE SEPSIS WITH SEPTIC SHOCK (6) Respiratory failure requiring intubation Assessment/Plan: Continue vent support. 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 Oncology f/u/ Code(s): D47.Z2 - CASTLEMAN DISEASE B10.89 - OTHER HUMAN HERPESVIRUS INFECTION (8) Thrombocytopenia Assessment/Plan: Follow plts counts D/C ASA Plts Tx if bleeds Code(s): D69.6 - THROMBOCYTOPENIA, UNSPECIFIED
--- NOTE | 2016-10-23 09:01 | CONS ---
DATE OF CONSULTATION: DATE OF DICTATION: 10/23/2016 INFECTIOUS DISEASE CONSULTATION HISTORY OF PRESENT ILLNESS: This is an 86-year-old male with end-stage renal disease, whom I am asked to see for sepsis syndrome, in the intensive care unit. The patient was transferred from the dialysis unit after he apparently developed fever, hypotension, tachycardia and chest pain, after initiation of dialysis. He was seen in the emergency room and subsequently developed respiratory failure, and is noted to have positive troponin enzyme. The history is significant in that he had had a prolonged unexplained febrile illness over the summer and toward the end of August underwent a cervical lymph node biopsy by Dr. Westbrook, which was consistent with Castleman disease, with herpes simplex virus 8 positive. His course was complicated by persistent fever, thought secondary to Castleman's, and he developed a severe, what was described as a lower extremity vasculitis, which Dr. Frazier treated with 40 mg of prednisone, which the patient had been on for about a month, right up until his admission yesterday. When the patient came to the emergency room, he was empirically treated with vancomycin and a dose of cefepime, and given a stress dose of corticosteroid. Currently he is intubated on 60 FiO2 and requiring pressors for blood pressure support. He denies any recent history of travel, exposure to pets, unusual hobbies, outdoor exposures, tick bites, or exposure to persons with known illness. He was raised in [place] and worked as a salesman for office supplies. He never lived in other than the [place] area, with his family. PAST MEDICAL HISTORY: Includes end-stage renal disease, recent lower extremity vasculitis, thrombocytopenia (thought immune related), gout, status post coronary artery bypass graft surgery with previous MS and stent, diastolic congestive heart failure, and psoriasis. MEDICATIONS: Atorvastatin, Lasix, Protonix, allopurinol, aspirin, carvedilol. ALLERGIES: PENICILLIN and SULFA. Unknown allergy to PENICILLIN. Also, SHELLFISH allergy. SOCIAL HISTORY: Former smoker, quit many years ago. No history of alcohol or substance abuse. FAMILY HISTORY: Positive for a brother with cancer. Father of stroke. Sister with Parkinson disease. REVIEW OF SYSTEMS: Respiratory: Currently intubated. No sputum, cough, hemoptysis. Cardiac: History of chest pain, began yesterday, with prior coronary artery disease known. No syncope or murmur. Gastrointestinal: No abdominal pain, blood per rectum, hematemesis, diarrhea. Genitourinary: End-stage renal disease. Neuromuscular: No history of joint pain, joint swelling, muscle pains, headaches. PHYSICAL EXAMINATION: Vital Signs: After admission his temperature was 102.2, pulse 110, respiratory rate 20, blood pressure 90/65, oximetry 94%. General: An anxious male, on the ventilator, in moderate distress. HEENT: Conjunctiva clear. EOMs intact. Neck: Supple. Trachea midline. Heart: S1, S2. Regular rhythm. Tachycardic. No murmur or gallop. Lungs: Clear to percussion and auscultation. No rales or rhonchi. Abdomen: Normoactive bowel sounds. Soft, nontender, no hepatosplenomegaly. Extremities: No clubbing, cyanosis or edema. Skin: A purpuric macular rash on the plantar aspects of both feet. DIAGNOSTIC STUDIES: White count 9.3, hemoglobin 12.3, platelets 26; polys 89%, bands 5, lymphocytes 2, monocytes 3, eosinophil 1. INR 1.5. ABG 7.33, 31, pO2 of 426 on 100% oxygen. BUN 87, creatinine 5.9, lactic acid 2.7. AST 44. Troponin 0.81. Two sets of blood cultures currently pending. Chest x-ray with sternotomy wires. No infiltrate seen. ASSESSMENT: An 86-year-old male with end-stage renal disease, recent diagnosis of herpes simplex virus 8 and Castleman disease. He has been treated with steroids, with complicating factors of vasculitis (probably) and thrombocytopenia, likely on an immunologic basis. He presents now hypotension and chest pain, with a background history of coronary artery disease and prior myocardial infarction, with stent. He also has a fever, and the possibility of sepsis related to staphylococcus or a gram-negative organism as well as fungus is considered. Blood cultures are currently pending. RECOMMENDATIONS: As discussed with Dr. Frazier, the patient should be empirically treated for bacterial sepsis, pending results of blood and sputum cultures. We will treat him with an additional dose of vancomycin and meropenem, adjusted for creatinine clearance. Stress doses of steroids and hydrocortisone to be given. Cardiology consultation pending. CRITICAL CARE TIME SPENT: Fifty minutes today. QUINN CH M.D. [id number]
[2016-10-23 09:19] LABS: CALCIUM 6.5 mg/dL (8.5-10.1); PHOSPHOROUS 10.2 mg/dL (2.5-4.9)
[2016-10-23 09:20] LABS: TROPONIN I 20.5 ng/ml (0.00-0.05)
--- NOTE | 2016-10-23 09:39 | CON.CARD ---
Cardiology Consult (text) - Consultation Consultation Note: CC: sent from HD for low bp, tachy, fever 86 yo with pmhx of CAD (inferior [place]) s/p 4 vessel CABG at [facility] (anatomy unknown ) and most recently NSTEMI 08/2015 s/p TRISHA to [facility] RPL1 (grafts patent), ischemic MR, dCHF with pHTN, AR, HTN, HL, venous insufficiency/LE edema, hx of GIB (egd showed gastric ulcer), esrd on HD, diverticulosis, colon polyps, BPH, kidney stones, anxiety, gout, psoriasis, recent diagnosis of castleman's sent from HD for low bp, tachy, fever. Currently intubated, sedated so hx from charts, family. Has chronic stable angina per family and yesterday with fever/ low bp/tachy he had mentioned some cp. Now intubated on pressors for septic shock/resp failure. Also having nstemi. Sees dr aerly for cardio. PMHx. per hpi Past Surgical History: Yes: AV Fistula/Graft, CABG, Cataract Removal (left eye) , Cholecystectomy (open) Social Hx: former smoker, no etoh, or illicits Fam hx: Non-contributory Ros: per hpi; unable to obtain 2/2 sedated Home Medications Medication Instructions Recorded Atorvastatin Ca [Lipitor] 20 mg PO HS 07/10/13 Furosemide [Lasix -] 20 mg PO BID 07/10/13 Pantoprazole Sodium [Protonix] 40 mg PO DAILY #30 tablet. 08/01/15 Allopurinol [Zyloprim -] 100 mg PO DAILY 08/17/15 Aspirin [ASA -] 81 mg PO DAILY 04/16/16 Bisacodyl [Dulcolax] 1 tablet PO PRN PRN 04/16/16 Multivit-Min/FA/Lycopen/Lutein 1 each PO DAILY 04/16/16 [Centrum Silver Tablet] Carvedilol [Coreg -] 6.25 mg PO BID 09/13/16 pe: Vital Signs Temp 99.5 F 10/23/16 06:00 Pulse 62 10/23/16 06:00 Resp 28 H 10/23/16 09:37 BP 110/46 10/23/16 06:00 Pulse Ox 96 10/23/16 03:56 Intake & Output 10/22/16 10/22/16 10/23/16 11:59 23:59 11:59 Intake Total 700 Balance 700 Weight 162 lb 4.163 oz 162 lb 4.163 oz Intake: IV 500 Pitressin - 50 Units In 100 Normal Saline - 97.5 ml @ 2 UNITS/HR 4 mls/hr IVPB ASDIR CHANTEL Rx#: [id number] Diprivan - 100 ml @ 5 MCG 100 /KG/MIN 2.208 mls/hr IVPUSH TITR CHANTEL Rx#: [id number] Levophed - 16,000 Mcg In 300 Normal Saline - 250 ml @ 5 MCG/MIN 4.98 mls/hr IV TITR CHANTEL Rx#:[id number] IVPB 200 Other: Voiding Method Indwelling Catheter Bowel Movement No Height 5 ft 4 in Body Mass Index (BMI) 27.8 Weight Measurement Method Built in Bedscale Built in Bedscale Weight Measurement Method Est/Stated by Patient nad no jvd, intubated, sedated RRR nl s1, s2 2/6 murmur at LSB and apex scattered rhonchi anteriorly, vented + bs soft nd ext without e/c/c + dp/pt no jaundice, diaphoresis sedated Laboratory Last Values WBC 8.4 K/mm3 (4.0-10.0) 10/23/16 06:10 RBC 3.32 M/mm3 (4.00-5.60) L 10/23/16 06:10 Hgb 11.3 GM/dL (11.7-16.9) L 10/23/16 06:10 Hct 34.3 % (35.4-49) L 10/23/16 06:10 MCV 103.5 fl (80-96) H 10/23/16 06:10 MCH 34.1 pg (25.7-33.7) H 10/23/16 06:10 MCHC 32.9 g/dl (32.0-35.9) 10/23/16 06:10 RDW 21.3 % (11.9-15.9) H 10/23/16 06:10 Plt Count 21 K/MM3 (134-434) L* 10/23/16 06:10 MPV 10.1 fl (7.5-11.1) 10/23/16 06:10 Total Counted 100 10/22/16 12:58 Neutrophils % 89.7 % (42.8-82.8) H D 10/23/16 06:10 Neutrophils % (Manual) 89 % (42.8-82.8) H 10/22/16 12:58 Band Neuts % (Manual) 5 % (0-10) 10/22/16 12:58 Lymphocytes % 5.7 % (8-40) L D 10/23/16 06:10 Lymphocytes % (Manual) 2 % (8-40) L 10/22/16 12:58 Monocytes % 3.7 % (3.8-10.2) L D 10/23/16 06:10 Monocytes % (Manual) 3 % (3.8-10.2) L 10/22/16 12:58 Eosinophils % 0.7 % (0-4.5) 10/23/16 06:10 Eosinophils % (Manual) 1 % (0-4.5) 10/22/16 12:58 Basophils % 0.2 % (0-2.0) 10/23/16 06:10 Platelet Estimate Decreased (NORMAL) 10/22/16 12:58 Platelet Comment No clumping noted 10/22/16 12:58 Anisocytosis 2+ 10/22/16 12:58 Macrocytosis 1+ 10/22/16 12:58 Ovalocytes 1+ 10/22/16 12:58 [place] Cells F 10/22/16 12:58 INR 1.50 (0.82-1.09) H 10/22/16 13:15 PTT (Actin FS) 38.0 SECONDS (26.9-34.4) H 10/22/16 13:15 Puncture Site Right brachial 10/23/16 01:30 ABG pH 7.33 (7.35-7.45) L 10/23/16 01:30 ABG pCO2 at Pt Temp 30.8 mmHg (35-45) L 10/23/16 01:30 ABG pO2 at Pt Temp 426.0 mmHg (68-100) H* 10/23/16 01:30 ABG HCO3 15.6 meq/L (22-26) L 10/23/16 01:30 ABG O2 Sat (Measured) 98.5 % (90-98.9) 10/23/16 01:30 ABG O2 Content 16.6 % vol (15-22) 10/23/16 01:30 ABG Base Excess -8.9 meq/l (-2-2) L 10/23/16 01:30 Naren Test Positive 10/23/16 01:30 VBG pH 7.29 (7.32-7.42) L 10/22/16 13:20 POC VBG pCO2 48.9 mmHg (38-52) 10/22/16 13:20 POC VBG pO2 30.4 mmHg (28-48) D 10/22/16 13:20 Mixed VBG HCO3 22.8 meq/L (19-25) 10/22/16 13:20 O2 Delivery Device Mech vent 10/23/16 01:30 Oxygen Flow Rate 100% 10/23/16 01:30 Vent Mode A/c 10/23/16 01:30 Vent Rate 28 10/23/16 01:30 Mechanical Rate Yes 10/23/16 01:30 PEEP 10.0 cmH2O 10/23/16 01:30 Pressure Support Vent 450 10/23/16 01:30 Sodium 134 mmol/L (136-145) L 10/23/16 06:10 Potassium 6.4 mmol/L (3.5-5.1) H* D 10/23/16 06:10 Chloride 97 mmol/L (98-107) L 10/23/16 06:10 Carbon Dioxide 14 mmol/L (21-32) L D 10/23/16 06:10 Anion Gap 23 (8-16) H 10/23/16 06:10 BUN 99 mg/dL (7-18) H 10/23/16 06:10 Creatinine 6.9 mg/dL (0.7-1.3) H 10/23/16 06:10 Creat Clearance w eGFR 9.18 (>60) 10/22/16 16:53 Random Glucose 53 mg/dL (74-106) L D 10/23/16 06:10 Lactic Acid 2.7 mmol/L (0.4-2.0) H* 10/22/16 16:53 Calcium 6.5 mg/dL (8.5-10.1) L* 10/23/16 06:10 Phosphorus 10.2 mg/dL (2.5-4.9) H* D 10/23/16 06:10 Magnesium 1.7 mg/dL (1.8-2.4) L D 10/23/16 06:10 Total Bilirubin 1.3 mg/dL (0.2-1.0) H D 10/23/16 06:10 Direct Bilirubin 0.9 mg/dL (0.0-0.2) H 10/23/16 06:10 AST 244 U/L (15-37) H D 10/23/16 06:10 ALT 153 U/L (12-78) H D 10/23/16 06:10 Alkaline Phosphatase 117 U/L (45-117) D 10/23/16 06:10 Creatine Kinase 159 IU/L (39-308) 10/23/16 06:10 Creatine Kinase Index 14.0 % (0.0-5.0) H* 10/23/16 06:10 CK-MB (CK-2) 22.281 ng/mL (0.5-3.6) H 10/23/16 06:10 Troponin I 20.50 ng/ml (0.00-0.05) H* D 10/23/16 06:10 B-Natriuretic Peptide 933011.15 pg/ml (5-450) H 10/22/16 12:58 Total Protein 5.3 g/dl (6.4-8.2) L 10/23/16 06:10 Albumin 1.9 g/dl (3.4-5.0) L 10/23/16 06:10 Random Vancomycin 12.307 ug/ml 10/23/16 06:10 Blood Type A POSITIVE 10/22/16 12:58 Antibody Screen Negative 10/22/16 12:58 echo 12/2015: mild lvh. nl size/fn EF 55-60%. Mild HK of inferolateral wall and basal inferoseptum, mod HK of inferior wall. Pseudonormalization. mild RV dilation, nl fn. mod lae. 1+ ar, mod MR (central), mild-mod tr, mod phtn. RVSP 51 (presuming RAP of 3) [facility] 08/23/2015: severe [facility] 3vD; patent grafts x 4: RAI to LAD; radial artery Y -graft from RAI to D1 and OM1; radial artery to RCA; 70-80% RPL1--XIENCE; EDP 25, down to 20 with NTG; nl EF, no RWMA Stress Echo 03/07--dobutamine: possibly ischemic STs; +mid-septal akinesis and infero-apical HK c/w ischemia ecg 09/07/16: sr, 1st avb, pvcs, lbbb, no sig change priors ecg 10/22/16: sr 109, qtc nl, twi I, avl, lat st depre, no becky ecg tele: sr, pvcs, brief atrial runs cxr: chf est cct 36 mins a/p: 86 yo with pmhx of CAD (inferior [place]) s/p 4 vessel CABG at [facility] (anatomy unknown) and most recently NSTEMI 08/2015 s/p TRISHA to [facility] RPL1 (grafts patent) , ischemic MR, dCHF with pHTN, AR, HTN, HL, venous insufficiency/LE edema, hx of GIB (egd showed gastric ulcer), esrd on HD, diverticulosis, colon polyps, BPH, kidney stones, anxiety, gout, psoriasis, recent diagnosis of castleman's sent from HD for low bp, tachy, fever. septic shock: -on abx, ID following -cont pressor support, titrate down if bp allows acute Diastolic HF, resp failure - some congestion on cxr and now intubated, likely sepsis component as well - cont vol management with HD per renal nstemi: -trop trend consistent with nstemi and has now increased to 20. -ecg w/o st elevations -bp too low for imdur, bb given his sepsis -plts very low (20's) so likely not a candidate for asa or ac, Armando consulted for further input as well -check updated echo CAD (inferior [place]) s/p 4 vessel CABG at [facility] (anatomy unknown) -Had NSTEMI 08/2015 s/p TRISHA to [facility] RPL1 (grafts patent). -plan as above Mod ischemic MR. - check updated echo here HTN - holding home meds due to low bp/sepsis castlemans: -recent diagnosis, heme consulted
[2016-10-23] MEDS ORDERED: MEROPENEM 500 MG VIAL (RESTRICTED TO ID) IVPB SCH (10:00)
[2016-10-23] MEDS ORDERED: methylPREDNISolone NA SUCC 40 MG/1 ML VIAL IVPB SCH (10:00)
[2016-10-23] MEDS ORDERED: HYDROCORTISONE SOD SUCCINATE 100 MG/2 ML VIAL IVPB SCH (10:00)
[2016-10-23] MEDS ORDERED: ASPIRIN 81 MG CHEWABLE TABLETS PO SCH (10:00)
[2016-10-23] MEDS ORDERED: ALLOPURINOL 100 MG TABLET (FP) PO SCH (10:00)
[2016-10-23] MEDS ORDERED: PANTOPRAZOLE SODIUM 100 ML IVPB SCH (10:00)
[2016-10-23] MEDS ORDERED: ISOSORBIDE MONONITRATE 30 MG TAB.SR.24H (FP) PO SCH (10:00)
[2016-10-23] MEDS ORDERED: MUPIROCIN 2% TOPICAL OINTMENT FOR DECOLONIZATION NS SCH (10:00)
[2016-10-23] MEDS ORDERED: METOPROLOL SUCCINATE 50 MG TAB.SR.24H (FP) PO SCH (10:00)
[2016-10-23] MEDS ORDERED: MEROPENEM IVPB SCH (10:30)
[2016-10-23] MEDS ORDERED: SODIUM CHLORIDE IVPB SCH (10:30)
--- NOTE | 2016-10-23 10:39 | PN ---
Progress Note (short form) - Note Progress Note: PULMONARY/CCM Pt seen and examined in the ICU. Overnight events noted. Pt now intubated, sedated on pressor support. Last Vital Signs Temp Pulse Resp BP Pulse Ox 99.5 F 62 28 H 110/46 96 10/23/16 06:00 10/23/16 06:00 10/23/16 09:37 10/23/16 06:00 10/23/16 03:56 Intake & Output 10/20/16 10/21/16 10/22/16 10/23/16 23:59 23:59 23:59 23:59 Intake Total 700 Balance 700 Weight 162 lb 4.163 oz 162 lb 4.163 oz Gen: intubated, sedated Heart: RRR Lung:decreased breath sounds at the bases Abd: soft, nontender Ext: no edema CBC, BMP 10/23/16 06:10 10/23/16 06:10 Troponin, BNP 10/22/16 10/22/16 10/22/16 12:58 14:45 16:53 Troponin I 0.95 H* D Cancelled 0.81 H* B-Natriuretic Peptide 822439.15 H 10/23/16 06:10 Troponin I 20.50 H* D B-Natriuretic Peptide ABG Results ABG pH 7.33 (7.35-7.45) L 10/23/16 01:30 ABG pCO2 at Pt Temp 30.8 mmHg (35-45) L 10/23/16 01:30 ABG pO2 at Pt Temp 426.0 mmHg (68-100) H* 10/23/16 01:30 ABG HCO3 15.6 meq/L (22-26) L 10/23/16 01:30 ABG O2 Sat (Measured) 98.5 % (90-98.9) 10/23/16 01:30 ABG O2 Content 16.6 % vol (15-22) 10/23/16 01:30 ABG Base Excess -8.9 meq/l (-2-2) L 10/23/16 01:30 Active Medications Acetaminophen (Tylenol -) 650 mg PO Q6H PRN PRN Reason: FEVER OR PAIN Last Admin: 10/22/16 23:27 Dose: 650 mg Atorvastatin Calcium (Lipitor -) 80 mg PO HS [facility] Last Admin: 10/22/16 23:31 Dose: 80 mg Chlorhexidine Gluconate (Hibiclens For Decolonization -) 1 applic TP HS [facility] Hydrocortisone Sodium Succinate (Solu-Cortef -) 100 mg IVPB DAILY [facility] Last Admin: 10/23/16 10:09 Dose: 100 mg Vasopressin 50 units/ Sodium (Chloride) 100 mls @ 4 mls/hr IVPB ASDIR [facility]; 2 UNITS/HR PRN Reason: Protocol Last Admin: 10/23/16 06:41 Dose: 8 mls/hr Fentanyl 500 mcg/ Dextrose 100 mls @ 10 mls/hr IJ TITR [facility] PRN Reason: 50 MCG/HR Last Titration: 10/23/16 01:44 Dose: 50 mcg/hr Pantoprazole Sodium (Protonix 40mg Ivpb (Pre-Docked)) 100 mls @ 200 mls/hr IVPB DAILY [facility] Last Admin: 10/23/16 10:09 Dose: 200 mls/hr Propofol (Diprivan -) 100 mls @ 2.208 mls/hr IVPUSH TITR [facility]; 5 MCG/KG/MIN PRN Reason: Protocol Last Titration: 10/23/16 06:34 Dose: 15 mcg/kg/min Norepinephrine Bitartrate 16, (000 mcg/ Sodium Chloride) 266 mls @ 4.98 mls/hr IV TITR [facility]EL; 5 MCG/MIN PRN Reason: Protocol Last Admin: 10/23/16 02:07 Dose: 24.93 mls/hr Meropenem 250 mg/ Sodium (Chloride) 100 mls @ 400 mls/hr IVPB BID [facility] Mupirocin (Bactroban Ointment (For Decolonization) -) 1 applic NS BID [facility] Stop: 10/28/16 09:59 Last Admin: 10/23/16 10:02 Dose: 1 applic A/P Acute Hypoxic Respiratory Failure Septic Shock of unclear source at this time Acute NSTEMI CAD s/p CABG LV Diastolic Dysfunction Pulmonary HTN 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 Thrombocytopenia - continue antibiotics per ID - f/u cultures - HD per renal - titrate pressors to maintain MAP >65 - taper FiO2, PEEP to keep SpO2 >90% - stress dose steroids - trend cardiac enzymes - echocardiogram - transfuse platelets if <20K - once hemodynamically stable, lighten sedation to assess mental status - spontaneous breathing trials once mental status improved - enteral feeds if unable to extubate - DVT/GI prophylaxis - continue ICU monitoring - prognosis guarded - discussed with family at bedside critical care time spent in reviewing chart, evaluating patient and formulating plan 40 min
[2016-10-23 11:14] VITALS: TEMP 99.2
--- NOTE | 2016-10-23 12:26 | EKG ---
Test Reason : Blood Pressure : / mmHG Vent. Rate : 096 BPM Atrial Rate : 127 BPM P-R Int : 000 ms QRS Dur : 156 ms QT Int : 442 ms P-R-T Axes : 000 268 096 degrees QTc Int : 558 ms SINUS RHYTHM WITTH MARKED 1ST DEGREE AV BLOCK. FREQUENT SEEN IN A BIGEMINAL PATTERN SUGGESTING [place] INTERMITTENT JUNCTIONAL ESCAPE BEATS RIGHT BUNDLE BRANCH BLOCK LEFT ANTERIOR FASCICULAR BLOCK ST- T WAVE ABNORMALITY, CONSIDER LATERAL ISCHEMIA ABNORMAL ECG WHEN COMPARED WITH ECG OF 22-OCT-2016 18:37, CORRELATE CLINICALLY AND REPEAT TRACING INDICATED Confirmed by JERE TOMPKINS MD ([id number] on 10/23/2016 12:26:02 PM Referred By: Cristofer MILLER Confirmed By:JERE TOMPKINS MD
[2016-10-23 13:13] VITALS: BP 88/57; PULSE 60
--- NOTE | 2016-10-23 13:35 | EKG ---
Test Reason : Blood Pressure : / mmHG Vent. Rate : 111 BPM Atrial Rate : 111 BPM P-R Int : 000 ms QRS Dur : 136 ms QT Int : 344 ms P-R-T Axes : 039 -57 124 degrees QTc Int : 467 ms SINUS TACHYCARDIA , WITH 1ST DEGREE A-V BLOCK SUPRAVENTICULA PREMATURE BEATS CANNOT EXCLUDE PERIODS OF ACCELERATED JUNCTION RHYTHM. LEFT BUNDLE BRANCH BLOCK DIFFUSE ST-T ABNORMALITIES ABNORMAL ECG WHEN COMPARED WITH ECG OF 22-OCT-2016 17:31, RHYTHM HAS CHANGED ABOVE CONSIDER REPEAT TRACING Confirmed by JERE TOMPKINS MD ([id number]) on 10/23/2016 1:35:21 PM Referred By: Confirmed By:JERE TOMPKINS MD
--- NOTE | 2016-10-23 13:40 | EKG ---
Test Reason : Blood Pressure : / mmHG Vent. Rate : 094 BPM Atrial Rate : 094 BPM P-R Int : 232 ms QRS Dur : 128 ms QT Int : 370 ms P-R-T Axes : 045 -54 134 degrees QTc Int : 462 ms SINUS RHYTHM WITH 1ST DEGREE A-V BLOCK WITH PREMATURE ATRIAL COMPLEXES LEFT AXIS DEVIATION NON-SPECIFIC INTRA-VENTRICULAR CONDUCTION BLOCK T WAVE ABNORMALITY, CONSIDER LATERAL ISCHEMIA ABNORMAL ECG WHEN COMPARED WITH ECG OF 22-OCT-2016 15:27, PREMATURE VENTRICULAR COMPLEXES ARE NO LONGER PRESENT REPEAT EKG IF CLINICALLY INDICATED Confirmed by JERE TOMPKINS MD ([id number]) on 10/23/2016 1:39:59 PM Referred By: Confirmed By:JERE TOMPKINS MD
--- NOTE | 2016-10-23 13:43 | HOSP ---
Physical Examination Vital Signs: Vital Signs Temperature 99.2 F 10/23/16 11:13 Pulse Rate 60 10/23/16 13:00 Respiratory Rate 18 10/23/16 13:00 Blood Pressure 88/57 10/23/16 13:00 O2 Sat by Pulse Oximetry (%) 96 10/23/16 03:56 Labs: CBC, BMP 10/23/16 06:10 10/23/16 06:10 Hospitalist Encounter Assessment: I was called by the nurse to pronounce the patient . Pupils fixed and dilated. No audible heart sounds. Unresponsive to tactile stimuli. No spontaneous breathing. Patient was pronounced 13:15. Attending being notified by the nurse and the family of the patient was at patient bedside. Visit type - Emergency Visit Emergency Visit: Yes ED Registration Date: 10/22/16 Care time: The patient presented to the Emergency Department on the above date and was hospitalized for further evaluation of their emergent condition. - New Patient This patient is new to me today: Yes Date on this admission: 10/23/16 - Critical Care Critical Care patient: Yes Total Critical Care Time (in minutes): 20
--- NOTE | 2016-10-23 13:45 | EKG ---
Test Reason : Blood Pressure : / mmHG Vent. Rate : 081 BPM Atrial Rate : 081 BPM P-R Int : 224 ms QRS Dur : 124 ms QT Int : 380 ms P-R-T Axes : 005 -57 136 degrees QTc Int : 441 ms SINUS RHYTHM WITH 1ST DEGREE A-V BLOCK WITH OCCASIONAL PREMATURE VENTRICULAR COMPLEXES AND PREMATURE ATRIAL COMPLEXES LEFT AXIS DEVIATION COMPLETE LBBB ABNORMAL ECG WHEN COMPARED WITH ECG OF 22-OCT-2016 12:55, PREMATURE VENTRICULAR COMPLEXES ARE NOW PRESENT ST-T ABNORMQALITIES ARE MORE PRONOUNCED IN Confirmed by JERE TOMPKINS MD ([id number]) on 10/23/2016 1:44:43 PM Referred By: Cristofer MILLER Confirmed By:JERE TOMPKINS MD
--- NOTE | 2016-10-23 14:22 | CONSULT ---
Consult Consult Specialty:: Hematology Reason for Consultation:: Thrombocytopenia, and reported history of Castlemans disease. 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 History of Present Illness: Presently admitted following episode hypotension at dialysis, attributed to sepsis, now intubated and requiring inotropic support. Similar presentation in mid-August - fever, hypotension - and then found to have new splenomegaly and new lymhadenopathy. Was discharged home after short stay and underwent cervical lymph node biopsy as outpatient - has not yet been seen by hematology to review results (?castlemanns disease). Other interim history relevent for lower extremity rash - believed to be vascultic - and treated empirically with steroids - with subsequent resolution. Noted thrombocytopenia (60K) in August, not present prior on prior labs. Has been on dialysis for about a year. No clear chronic constitutional symptoms prior to earlier admission on 09/09. 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: Alzheimer's, CVA, Dementia, Migraine, Multiple Sclerosis, Peripheral Neuropathy, Parkinson's, Seizure, Syncope, TIA, Vertigo, Other Cardio/Vascular: Yes: Aortic Insufficiency, CHF, HTN, CA, Mitral Insufficiency, Murmur, Pulmonary Hypertension Pulmonary: Yes: Other (Pulm HTN) Gastrointestinal: Yes: Diverticulosis, GI Bleed, Peptic Ulcer Disease, Other ( colon polyps) Renal/: Yes: Renal Failure, BPH, Cancer (Bladder), Renal Calculi (uric acid stones) Psych: Yes: Anxiety Musculoskeletal: No: Bursitis, Chronic low back pain, Hemiparesis, Hemiplegia, Osteoarthritis, Paraplegia, Other Rheumatology: Yes: Gout, Other (Vasculitis-LCCV LE) Endocrine: No: Andres's Disease, [place]'s Disease, Diabetes Insipidus, Diabetes Mellitus, Hyperparathyroidism, Hyperthyroidism, Hypothyroidism, Osteopenia, SIADH, Other Dermatology: Yes: Psoriasis - Past Surgical History Past Surgical History: Yes: AV Fistula/Graft, CABG, Cataract Removal (left eye) , Cholecystectomy (open), Stent - Alcohol/Substance Use Hx Alcohol Use: No - Smoking History Smoking history: Never smoked Have you smoked in the past 12 months: No If you are a former smoker, when did you quit?: 2001 - Social History Usual Living Arrangement: With Spouse History of Recent Travel: No Home Medications - Allergies Allergies/Adverse Reactions: Allergies Allergy/AdvReac Type Severity Reaction Status Date / Time Penicillins Allergy Rash Verified 09/14/16 07:36 shellfish derived Allergy Rash Verified 09/14/16 07:36 Sulfa (Sulfonamide Allergy Difficulty Verified 09/14/16 07:36 Antibiotics) Breathing - Home Medications Home Medications: Ambulatory Orders Atorvastatin Ca [Lipitor] 20 mg PO HS 07/10/13 Furosemide [Lasix -] 20 mg PO BID 07/10/13 Pantoprazole Sodium [Protonix] 40 mg PO DAILY #30 tablet. 08/01/15 Allopurinol [Zyloprim -] 100 mg PO DAILY 08/17/15 Aspirin [ASA -] 81 mg PO DAILY 04/16/16 Bisacodyl [Dulcolax] 1 tablet PO PRN PRN 04/16/16 Multivit-Min/FA/Lycopen/Lutein [Centrum Silver Tablet] 1 each PO DAILY 04/16/16 Carvedilol [Coreg -] 6.25 mg PO BID 09/13/16 Family Disease History - Family Disease History Family Disease History: CA: Brother (lung), Other: Father (cva), Mother ( natural causes), Sister (parkinson's) Physical Exam Vital Signs: Vital Signs Temperature 99.2 F 10/23/16 11:13 Pulse Rate 60 10/23/16 13:00 Respiratory Rate 18 10/23/16 13:00 Blood Pressure 88/57 10/23/16 13:00 O2 Sat by Pulse Oximetry (%) 96 10/23/16 03:56 Constitutional: Yes: Thin HENT: Yes: WNL Cardiovascular: Yes: Regular Rate and Rhythm, S1, S2. No: Gallop, Murmur Respiratory: Yes: Intubated Gastrointestinal: Yes: Normal Bowel Sounds, Soft Integumentary: Yes: Other (Healed rash lower extremities) Labs: CBC, BMP 10/23/16 06:10 10/23/16 06:10 Assessment/Plan Elderly male, ESRD of HD, with acute presentation with fever, hypotension, ( VDRF and inotrope dependant) - suggestive of severe sepsis. 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 Acute presentation possibly attributable to sepsis, but cannot exclude possibility that above is attributable to hyper-inflammatory manifestation of SHIELA, (albeit thrombocytosis is generally expected.) Agree with empiric Abics, supportive care, steroids. If clinical findings believed to attributable to SHIELA then unfortunately no standard treatment, but can consider anti-HHV8 directed therapy (ganciclovir), and possibly rituximab, and possibly etoposide. Check HIV if not already done. Patient's age, and poor performance status however will limit aggressiveness of therapy. Will follow closely.
[2016-10-23] MEDS ORDERED: CHLORHEXIDINE GLUCONATE 4% CLEANSER FOR DECOLONIZATION TP SCH (22:00)
--- NOTE | 2016-10-24 12:33 | DS ---
Physical Examination Vital Signs: Vital Signs Temperature 99.2 F 10/23/16 11:13 Pulse Rate 60 10/23/16 13:00 Respiratory Rate 18 10/23/16 13:00 Blood Pressure 88/57 10/23/16 13:00 O2 Sat by Pulse Oximetry (%) 96 10/23/16 03:56 Findings/Remarks: Patient in ICU. Spoke to family certificate filled Labs: CBC, BMP 10/23/16 06:10 10/23/16 06:10 Discharge Summary Reason For Visit: CHEST PAIN Condition: Critical - Instructions Referrals: Anil Frazier MD [Primary Care Provider] - Disposition: - Home Medications Comprehensive Discharge Medication List: Ambulatory Orders Atorvastatin Ca [Lipitor] 20 mg PO HS 07/10/13 Furosemide [Lasix -] 20 mg PO BID 07/10/13 Pantoprazole Sodium [Protonix] 40 mg PO DAILY #30 tablet. 08/01/15 Allopurinol [Zyloprim -] 100 mg PO DAILY 08/17/15 Aspirin [ASA -] 81 mg PO DAILY 04/16/16 Bisacodyl [Dulcolax] 1 tablet PO PRN PRN 04/16/16 Multivit-Min/FA/Lycopen/Lutein [Centrum Silver Tablet] 1 each PO DAILY 04/16/16 Carvedilol [Coreg -] 6.25 mg PO BID 09/13/16
--- NOTE | 2016-10-27 12:22 | EKG ---
Test Reason : Blood Pressure : / mmHG Vent. Rate : 108 BPM Atrial Rate : 108 BPM P-R Int : 208 ms QRS Dur : 120 ms QT Int : 334 ms P-R-T Axes : 034 -68 127 degrees QTc Int : 447 ms SINUS TACHYCARDIA WITH FUSION COMPLEXES LEFT ANTERIOR FASCICULAR BLOCK INFERIOR INFARCT , AGE UNDETERMINED MARKED ST ABNORMALITY, POSSIBLE LATERAL SUBENDOCARDIAL INJURY ABNORMAL ECG WHEN COMPARED WITH ECG OF 07-SEP-2016 20:14, SIGNIFICANT CHANGES HAVE OCCURRED Confirmed by HALEY DIANE MD ([id number]) on 10/27/2016 12:21:51 PM Referred By: Confirmed By:HALEY DIANE MD
== END 2016-10-23 15:37 | disposition expired | DRG 871 ==
LOC: JER 12:35 → JERBED 14:09 → OBSVTOIN 14:09 → JICU 20:34
PROVIDERS: ADMIT Internal Medicine; ATTEND Internal Medicine
PROC: 05HM33Z Insertion of Infusion Device into Right Internal Jugular Vein, Percutaneous Approach (ICD-10-PCS; principal; 2016-10-22)
PROC: 0BH17EZ Insertion of Endotracheal Airway into Trachea, Via Natural or Artificial Opening (ICD-10-PCS; 2016-10-22)
PROC: 5A1935Z Respiratory Ventilation, Less than 24 Consecutive Hours (ICD-10-PCS; 2016-10-22)
DX: A41.9 Sepsis, unspecified organism (principal); I21.4 Non-ST elevation (NSTEMI) myocardial infarction; R65.21 Severe sepsis with septic shock; N18.6 End stage renal disease; I50.31 Acute diastolic (congestive) heart failure; J96.01 Acute respiratory failure with hypoxia; D47.Z2 Castleman disease; I13.2 Hypertensive heart and chronic kidney disease with heart failure and with stage 5 chronic kidney disease, or end stage renal disease; A00-B99 Certain infectious and parasitic diseases; E78.00 Pure hypercholesterolemia, unspecified; I27.2 Other secondary pulmonary hypertension; N20.0 Calculus of kidney; L40.8 Other psoriasis; I46.9 Cardiac arrest, cause unspecified; I25.118 Atherosclerotic heart disease of native coronary artery with other forms of angina pectoris; R50.81 Fever presenting with conditions classified elsewhere; I34.0 Nonrheumatic mitral (valve) insufficiency; I35.1 Nonrheumatic aortic (valve) insufficiency; K63.5 Polyp of colon; K27.9 Peptic ulcer, site unspecified, unspecified as acute or chronic, without hemorrhage or perforation; N40.0 Benign prostatic hyperplasia without lower urinary tract symptoms; D64.9 Anemia, unspecified; R59.0 Localized enlarged lymph nodes; R74.8 Abnormal levels of other serum enzymes; F41.8 Other specified anxiety disorders; I87.2 Venous insufficiency (chronic) (peripheral); D47.3 Essential (hemorrhagic) thrombocythemia; E87.5 Hyperkalemia; D69.6 Thrombocytopenia, unspecified; M10.9 Gout, unspecified; K57.90 Diverticulosis of intestine, part unspecified, without perforation or abscess without bleeding; Z99.2 Dependence on renal dialysis; Z88.0 Allergy status to penicillin; Z85.51 Personal history of malignant neoplasm of bladder; Z95.5 Presence of coronary angioplasty implant and graft; Z95.1 Presence of aortocoronary bypass graft; Z79.52 Long term (current) use of systemic steroids; Z87.891 Personal history of nicotine dependence
CPT/HCPCS: 31500; 36415; 36600; 71010-TC; 80048; 80053; 80076; 82553; 82803; 83605; 83735; 83880; 84100; 84484; 85025; 85610; 85730; 86850; 86900; 86901; 87040; 93005; 93010; 94002; 94660; 99285-25; G0480